=== PATIENT | female | born 1960 | race Caucasian/White ===

== ENCOUNTER → 2018-01-03 07:12 | Outpatient (CLI) | payer MEDICARE, SELFPAY ==
--- NOTE | 2018-01-03 07:26 | BI_ITS ---
MAMMOGRAPHY - BILATERAL SCREENING REASON FOR EXAM: Female, 57 years old. Routine annual screening examination. PERTINENT HISTORY: Non-contributory. Prior right stereotactic breast biopsy. TECHNIQUE: Digital bilateral breast john (3D mammographic acquisition) in the CC and MLO projections. 2-D mediolateral oblique (MLO) and craniocaudad (CC) views of both breasts were obtained. CAD: Full Field Digital Mammography with Computer Added Detection was performed. COMPARISON: Comparison is made with prior study of December 19, 2016 and January 29, 2014. FINDINGS: Breast Composition: There are scattered areas of fibroglandular density. There are no dominant masses or suspicious calcifications. Stable bilateral benign-appearing axillary lymph nodes. A tissue clip marker is seen in the superior lateral aspect of the right breast. No other significant abnormalities are identified. There has been no significant change since the prior study. BI/SCREENING MAMM (CAD), BILAT IMPRESSION: Stable bilateral screening mammogram. Yearly follow-up mammogram recommended. (A) ASSESSMENT CATEGORY: BIRADS Category 2: Benign. A letter regarding these results will be sent to the patient by the facility within 30 days. Approximately 10% of breast cancers are not detected by mammography. A normal mammogram should not delay biopsy of a clinically suspicious abnormality. [id number] Electronically Signed: Tye Estrada MD at 8:58 EDT Tel [phone], Service support ,
== END ==
PROVIDERS: Family Provider Family Medicine; PCP Family Medicine; Visit Provider Family Medicine
DX: Z12.31 Encounter for screening mammogram for malignant neoplasm of breast (principal)
CPT/HCPCS: 77063; 77067

== ENCOUNTER 2018-04-30 07:23 | Emergency (ER) | payer MEDICARE, SELFPAY ==
[2018-04-30] VITALS (7 sets, daily range): BP systolic 110–185; BP diastolic 73–112; PULSE 62–70; RESP 12–18; TEMP 36.1; O2SAT 95–100; BMI 44.2
--- NOTE | 2018-04-30 07:52 | RAD_ITS ---
STUDY: X-RAY CHEST REASON FOR EXAM: Female, 58 years old. Shortness of breath TECHNIQUE: PA and lateral views of the chest. COMPARISON: None. FINDINGS: Cardiac monitoring leads overlie the chest. The lungs are clear and expanded. There is no demonstrated pleural abnormality. Normal size heart. Normal mediastinum and aziza. Normal visualized pulmonary arteries. Normal visualized aortic arch and descending thoracic aorta. There are diffuse degenerative changes of the visualized thoracic spine. Normal visualized ribs, clavicles, and shoulders. There is no demonstrated abnormality of the visualized soft tissue structures of the upper abdomen. RAD/Chest PA and Lateral IMPRESSION: Degenerative changes, as described above. No demonstrated acute cardiopulmonary process. Electronically Signed: Danny Mei DO at 8:33 EDT Tel , Service support ,
--- NOTE | 2018-04-30 07:56 | ED.VISSUMM ---
- ER Visit Summary Date of Service: 04/30/18 Chief Complaint: Shortness of breath History of Present Illness: The patient is a 58 F who presents with shortness of breath that has been getting worse over the past 2 days. Patient states it is gradually gotten worse. Patient states she feels like she just cannot get enough air. Patient denies any chest pain. Patient denies any wheezing or tightness. Patient states nothing makes her breathing worse. Patient states her breathing improves when she is sleeping. Patient denies any cough. Patient denies any sore throat or rhinorrhea. Patient denies any fevers. Patient denies any lower extremity pain or swelling. Patient denies any recent travel or recent surgery. Physical Examination: Vital signs are stable. Patient is afebrile. Patient is in no acute distress. Oral mucosa is pink and moist. Neck is supple. Trachea is midline. There is no JVD noted. Heart was regular rate and rhythm. Lungs are slightly diminished bilaterally. There is adequate respiratory effort noted. Abdomen is soft and nontender. Extremities are intact. There is no peripheral edema noted. Cranial nerves II through XII are intact. There are no focal motor or sensory deficits noted. The remaining physical exam is within normal limits. Test Results: EKG showed normal sinus rhythm with a rate of 65. There are nonspecific ST-T wave changes noted. There are no acute changes. Chest x-ray does not show any acute cardiopulmonary process. CBC was normal. Basic metabolic profile shows slightly elevated creatinine of 1.23. Emergency Department Course and Treatment: Patient was given a DuoNeb aerosol here. Patient felt better on reevaluation. Patient was given a prescription for albuterol inhaler. Patient was instructed to follow-up with her primary care physician in 5-7 days. Patient understood and was agreeable with the plan. All questions were answered. Disposition: Discharge home Impression: Dyspnea This note was generated with [employer] dictation software. It may contain incorrect words, spelling, and punctuation that were not noted in review of the chart prior to signing ED Disposition - Plan for ED Patient: Disposition: Home or Assisted Living Chief Complaint: Shortness of Breath Diagnosis: Dyspnea Prescriptions: Albuterol Inhaler [Ventolin Hfa] 1 - 2 puff INHALATION Q4H PRN PRN #1 inhaler PRN Reason: Wheezing Referrals: Trey Marion DO [Primary Care Provider] -
[2018-04-30] MEDS: Ipratropium/Albuterol Sulfate 3 ML AMPUL.NEB INHALATION (08:11)
[2018-04-30 08:12] LABS: Absolute Lymphocyte Count 1.68 X10^3/ul (0.83-4.51); Absolute Neutrophil Count 4.4 X10^3/uL (2.0-7.7); Basophil# 0.05 X10^3/uL; Basophil% 0.7 % (0-1); Eosinophil# 0.32 X10^3/uL; Eosinophils% 4.5 % (0-5); Hematocrit 45.6 % (37-47); Hemoglobin 14.9 g/dl (12.0-15.0); Lymphocyte # 1.68 X10^3/ul (4.0); Lymphocyte % 23.8 % (19-41); Mean Corp Hgb Conc 32.7 g/gl (32-36); Mean Platelet Vol. 10.2 fl (6.2-12.0); Monocyte# 0.57 X10^3/uL; Monocyte% 8.1 % (0-10); Neutrophil % 62.2 % (47-70); POSITIVE COUNT NO; POSITIVE DIFFERENTIAL NO; POSITIVE MORPHOLOGY NO; Platelet Count 215 K/mm3 (150-450); RBC Distribution Width CV 14.1 % (11.6-14.6); RBC Distribution Width SD 48.7 fl (35.1-43.9); White Blood Count 7.1 K/mm3 (4.4-11.0)
[2018-04-30 08:16] LABS: Anion Gap 5 (5-15); BUN 13 mg/dL (7-18); BUN/Creat Ratio 10.6 RATIO (10-20); Calcium,Total 8.3 mg/dL (8.5-10.1); Chloride 103 mmol/L (98-107); Creatinine, Serum 1.23 mg/dL (0.55-1.02); EST Glomerular Filtration Rate 48 mL/min (>60); Est Glom Filt Rate - Afr Amer 58 mL/min (>60); Estimated Creatinine Clearance 51.52 ml/min; Glucose 134 mg/dL (74-106); Potassium 3.6 mmol/L (3.5-5.1); Sodium Level 139 mmol/L (136-145)
== END 2018-04-30 10:04 | disposition home or self-care (01) ==
PROVIDERS: Emergency Provider Emergency Medicine; Family Provider Family Medicine; PCP Family Medicine
DX: R06.00 Dyspnea, unspecified (principal); E03.9 Hypothyroidism, unspecified
CPT/HCPCS: 71046; 80048; 85025; 93005; 94640; 99284; A4216

== ENCOUNTER → 2018-05-14 14:00 | Outpatient (CLI) | payer MEDICARE, SELFPAY ==
[2018-05-14 15:33] LABS: Absolute Lymphocyte Count 2.15 X10^3/ul (0.83-4.51); Absolute Neutrophil Count 3.6 X10^3/uL (2.0-7.7); Basophil# 0.09 X10^3/uL; Basophil% 1.3 % (0-1); Eosinophil# 0.27 X10^3/uL; Hematocrit 43.3 % (37-47); Hemoglobin 14.4 g/dl (12.0-15.0); Lymphocyte # 2.15 X10^3/ul (4.0); Lymphocyte % 32.2 % (19-41); Mean Corp Hgb Conc 33.3 g/gl (32-36); Mean Corpuscular Hgb 31.8 pg (27.0-32.0); Mean Corpuscular Volume 95.6 fL (81-99); Mean Platelet Vol. 10.7 fl (6.2-12.0); Monocyte# 0.52 X10^3/uL; Monocyte% 7.8 % (0-10); Neutrophil # 3.59 X10^3/uL (2.7-7.7); Platelet Count 236 K/mm3 (150-450); RBC Distribution Width CV 14.6 % (11.6-14.6); RBC Distribution Width SD 48.9 fl (35.1-43.9); Red Blood Count 4.53 M/mm3 (4.2-5.4); White Blood Count 6.7 K/mm3 (4.4-11.0)
[2018-05-14 15:41] LABS: POSITIVE COUNT NO; POSITIVE DIFFERENTIAL NO; POSITIVE MORPHOLOGY NO
== END ==
PROVIDERS: Family Provider Family Medicine; PCP Family Medicine; Visit Provider Nurse Practitioner Women's Health
DX: R53.83 Other fatigue (principal); N92.1 Excessive and frequent menstruation with irregular cycle
CPT/HCPCS: 36415; 84443; 85025

== ENCOUNTER → 2018-05-14 17:39 | Outpatient (CLI) | payer MEDICARE, SELFPAY ==
--- NOTE | 2018-05-14 | EMB_PTH ---
PATIENT: MURRAY HOOD LOC: [facility] U#:[id number] AGE/SX: 65/F ROOM: RE05/14/[address]: DAKOTA Viera : 1960 BED: DIS: SPEC #: [id number] RECD: 05/14/18 17:39 STATUS: FELIX BREONNA #: [id number] MERYL: 05/14/18 00:[address]: Tameak Perkins NP DEPT: SURGICAL PATHOLOGY RECD BY: Cr Valente ENTERED: 05/15/18 12:21 SP TYPE: ENDOM BX/C SCOTT DR: Dr. Trey Marion DO Tissues: Endometrium, NOS Procedures: Surgery Specimen Level IV HEADER OPERATION: Endometrial biopsy PRE-OP DIAGNOSIS: Abnormal uterine bleeding TISSUE SUBMITTED: Endometrial tissue MICROSCOPIC DIAGNOSIS Endometrial biopsy: Complex endometrial hyperplasia with atypia. See comment. Chronic endometritis. SJ:anita 8/23/18 COMMENT Higher grade lesion, endometrial adenocarcinoma, endometrioid type can not be entirely ruled out. Clinical correlation and appropriate follow up are necessary. Case has been reviewed in consultation with Dr. Carroll who concurs with the above diagnosis. IDC:AM MICROSCOPIC DESCRIPTION Slides are reviewed. GROSS DESCRIPTION Received is one container labeled with the patient's name and not further designated. The specimen consists of multiple fragments of hemorrhagic mucoid tissue that in aggregate measure 3 x 2.5 x 0.3 cm. The specimen is totally submitted in one cassette. / SJ:anita 05/15/18 TC:5 CPT: 06433
== END ==
PROVIDERS: Family Provider Family Medicine; PCP Family Medicine; Visit Provider Nurse Practitioner Women's Health
DX: N93.9 Abnormal uterine and vaginal bleeding, unspecified (principal)

== ENCOUNTER → 2018-05-14 18:21 | Outpatient (CLI) | payer MEDICARE, SELFPAY | PROVIDERS: Family Provider Family Medicine; PCP Family Medicine; Visit Provider Obstetrics & Gynecology | DX: N92.1 Excessive and frequent menstruation with irregular cycle (principal) | CPT/HCPCS: 36415; 76830; 76856; 84443; 85025; 88305 ==

== ENCOUNTER 2018-06-14 14:59 | Emergency (ER) | payer MEDICARE, SELFPAY ==
[2018-06-14 15:00] VITALS: BP 165/105; PULSE 102; RESP 14; TEMP 36.3; O2SAT 98; BMI 42.3
--- NOTE | 2018-06-14 15:17 | VDLE_ITS ---
Reason For Study: PAIN RIGHT LEFT CFV is compressible, spontaneous, phasic, GSV is normal. competent and demonstrates normal CFV is compressible, spontaneous, phasic, augmentation. competent, and demonstrates normal Procedure augmentation. Exam performed portable in ED. FV is compressible, spontaneous, phasic, A preliminary report was called and/or competent and demonstrates normal faxed to ED. augmentation. POP V is compressible, spontaneous, phasic, competent and demonstrates normal augmentation. T/P Trunk is compressible. LT PerV is compressible. Left PTV is dilated and NONCOMPRESSIBLE distally at the ankle. Left SSV is dilated and NONCOMPRESSIBLE . Varicosities of the left leg are dilated and NONCOMPRESSIBLE. IMAGES ARE MISLABELED- Left leg was scanned. Interpretation Summary Acute deep venous thrombosis left posterior tibial vein Superficial thrombophlebitis left small saphenous vein and left calf varicosities. Normal flow pattern right common femoral vein Ordering Physician: Clarissa Carmona Referring Physician: SINTIA ELIZALDE Performed By: Olamide Seymour, ALFREDITO, RVT
--- NOTE | 2018-06-14 15:20 | ED.DCSUM_ITS ---
- ER Visit Summary Date of Service: 06/14/18 Chief Complaint: Left leg pain and swelling History of Present Illness: The patient is a 58 F who noted redness and swelling to the medial portion of her left lower leg for the past couple of days. She denies chest pain or shortness of breath. She denies history of clots. She is a family history of phlebitis. Patient denies any recent injury. She states the area was so painful last night she had trouble laying it on the bed. Physical Examination: Blood pressure is 165/105, temperature 97.3, heart rate 102, respiratory rate 14, sats 98% on room air. Patient sitting upright in bed no acute distress. Head neck examination is unremarkable. Heart is regular rate and rhythm. lung sounds are clear. Abdomen is soft nontender. Left lower extremity examination reveals erythema with palpable distended vein along the medial left calf. Strong distal pulses are noted. Full range of motion is noted. Test Results: Venous ultrasound of the left leg was obtained. There is evidence of superficial thrombophlebitis. There is clot in 1 of the small feeder vessels to the deep system near the ankle. Emergency Department Course and Treatment: Patient is inserted on heat and aspirin. I will speak with her primary care physician to help arrange repeat ultrasound in 3 days. Treatment Plan: [] Disposition: Discharge Impression: Superficial thrombophlebitis left leg This note was generated with [employer] dictation software. It may contain incorrect words, spelling, and punctuation that were not noted in review of the chart prior to signing ED Disposition - Plan for ED Patient: Disposition: Home or Assisted Living Chief Complaint: Lower Extremity Injury Instructions: ED Phlebitis Superficial Referrals: Trey Marion DO [Primary Care Provider] - 3-5 Days
--- NOTE | 2018-06-14 15:59 | ED.DEP ---
ED Disposition - Plan for ED Patient: Disposition: Home or Assisted Living Chief Complaint: Lower Extremity Injury Instructions: ED Phlebitis Superficial Referrals: Trey Marion DO [Primary Care Provider] - 3-5 Days
[2018-06-14 16:29] VITALS: BP 148/96; PULSE 85; RESP 18; O2SAT 97
== END 2018-06-14 16:29 | disposition home or self-care (01) ==
LOC: ED 16:09
PROVIDERS: Emergency Provider Emergency Medicine; Family Provider Family Medicine; PCP Family Medicine
DX: I80.02 Phlebitis and thrombophlebitis of superficial vessels of left lower extremity (principal)
CPT/HCPCS: 93971; 99282

== ENCOUNTER 2020-11-11 06:25 | Emergency (ER) | payer MEDICARE, SELFPAY ==
[2020-03-09 09:13] VITALS: BMI 42.3
[2020-11-11 06:26] VITALS: BP 164/83; PULSE 93; RESP 18; TEMP 36.9; O2SAT 95; BMI 39.0
--- NOTE | 2020-11-11 06:36 | EKG12_ITS ---
Test Reason : SOB Blood Pressure : / mmHG Vent. Rate : 092 BPM Atrial Rate : 092 BPM P-R Int : 140 ms QRS Dur : 082 ms QT Int : 362 ms P-R-T Axes : 017 -17 016 degrees QTc Int : 447 ms Normal sinus rhythm Poor R wave progression Confirmed by TOMAS JOHNSTON, NICHOLAS ([id number]), material expeditor LOLA APARICIO ([id number]) on 11/29/2020 2:49:57 PM Referred By: GOLDIE Confirmed By:NICHOLAS MARIN MD
--- NOTE | 2020-11-11 06:36 | RAD_ITS ---
HISTORY: COUGH X WK ADDITIONAL HISTORY: None provided. EXAMINATION/TECHNIQUE: XR Chest 1 View AP/PA Number of images including paperwork: 1 COMPARISON: 04/30/2018 FINDINGS: LUNGS AND PLEURA: No consolidation, mass or pleural effusion. CARDIAC SILHOUETTE: Unremarkable. MEDIASTINUM AND ANKUR: Aortic tortuosity. UPPER ABDOMEN: Unremarkable. SKELETON AND SOFT TISSUES: No acute skeletal findings. Degenerative changes. OTHER DEVICES AND HARDWARE: None. RAD/Chest 1 View (Portable) IMPRESSION: No acute cardiopulmonary abnormality. at 0716 Reported and signed by: Celia Guzmán MD Electronically Signed: Celia Guzmán MD at 7:15 EST Tel , Service support ,
--- NOTE | 2020-11-11 06:36 | ED.VIS.GEN ---
History of Present Illness Chief Complaint: Shortness of Breath Narrative: Patient is a 60-year-old female who presents with cough and shortness of breath. Symptoms have been present for about 1 week. She complains of shortness of breath, productive cough, chills, generalized malaise, generalized weakness, rhinorrhea. No nausea vomiting or diarrhea. She does report decreased oral intake. She denies pain. She has a history of hypothyroidism and mild asthma. Past Medical History - Allergies and Home Meds Allergies/Adverse Reactions: Allergies etodolac [From Lodine] Allergy (Verified 11/11/20 06:28) Hives Penicillins [PCN] Allergy (Verified 11/11/20 06:28) Hives Primary Care Physician: Trey Marion DO [Primary Care Provider] - Past Medical History: - - Hypothyroidism Smoking Status: Never smoker Review of Systems All systems negative except as indicated General: Reports: Chills, Malaise. Denies: Fever Eyes: Denies: Visual changes - bilaterally ENT: Denies: Bilateral ear pain Cardiovascular: Denies: Chest pain Respiratory: Reports: Dyspnea, Cough, Sputum Gastrointestinal: Denies: Abdominal pain, Nausea, Vomiting, Diarrhea Musculoskeletal: Denies: Myalgias, Arthralgias Skin: Denies: Rash Neurological: Denies: Headache Hematologic: Denies: Easy bruising Allergy: Denies: Uticaria Physical Exam Vital Signs/Narrative: Vital Signs Temp Pulse Resp BP Pulse Ox 11/11/20 06:26 98.4 F 93 18 164/83 H 95 Inital Vital Signs reviewed: Yes General: Well nourished, Well developed, Obese Head: Normocephalic Eyes: EOMI ENT: Moist mucous membranes Neck: Supple Cardiovascular: Regular rate, Regular rhythm Respiratory: No distress, CTA bilaterally Abdomen: Soft, Nontender Skin: Normal color Neurological: Alert Psychological: Normal affect Diagnostic/Tx/Re-eval 11/11/20 06:36 CXR [Chest 1 View (Portable)] [RAD] Stat 11/11/20 06:40 Mucosa - Nose SARS-CoV-2 Antigen (Rapid) - Final Laboratory Results 11/11/20 11/11/20 06:35 06:35 WBC 3.0 L RBC 4.80 Hgb 14.3 Hct 42.6 MCV 88.8 MCH 29.8 MCHC 33.6 RDW Std Deviation 39.8 RDW Coeff of Rivka 12.2 Plt Count 169 MPV 9.8 Immature Gran % (Auto) 0.300 Neut % (Auto) 52.9 Lymph % (Auto) 30.3 [place] % (Auto) 14.8 H Eos % (Auto) 1.0 Baso % (Auto) 0.7 Absolute Neuts (auto) 1.6 L Absolute Lymphs (auto) 0.90 Nucleated RBC % 0 Sodium 139 Potassium 3.3 L Chloride 107 Carbon Dioxide 25.0 Anion Gap 7 BUN 14 Creatinine 0.62 Estim Creat Clear Calc 99.77 Est GFR (MDRD) Af Amer 126 Est GFR (MDRD) Non-Af 104 BUN/Creatinine Ratio 22.4 H Glucose 122 H Calcium 8.6 - Medical Decision Making EKG shows normal sinus rhythm at a rate of 92 with no acute ischemic changes. One-view portable chest x-ray was obtained. On my interpretation the shows no focal infiltrate, questionable right upper lung nodule. Radiology read is pending. Labs notable for white blood cell count of 3.0. This is likely related to a viral illness. Covid is negative. Patient advised on supportive care. I do believe the patient can follow-up safely as an outpatient. We will follow up on radiology report prior to discharge. Patient does understand to return for new or worsening symptoms she was advised on supportive care. She is instructed on signs and symptoms which should prompt return here to the emergency department for reevaluation and was discharged. ED Disposition - Plan for ED Patient: Disposition: Home or Assisted Living Diagnosis: Bronchitis Instructions: ED Bronchitis, No Antibiotic (Adult) Referrals: Trey Marion DO [Primary Care Provider] -
[2020-11-11 06:41] LABS: Absolute Neutrophil Count 1.6 X10^3/uL (2.0-7.7); Basophil# 0.02 X10^3/uL; Basophil% 0.7 % (0-1); Eosinophil# 0.03 X10^3/uL; Hematocrit 42.6 % (37-47); Hemoglobin 14.3 g/dL (12.0-15.0); Lymphocyte % 30.3 % (19-41); Mean Corp Hgb Conc 33.6 g/dL (32-36); Mean Corpuscular Hgb 29.8 pg (27.0-32.0); Mean Corpuscular Volume 88.8 fL (81-99); Mean Platelet Vol. 9.8 fl (6.2-12.0); Monocyte# 0.44 X10^3/uL; Monocyte% 14.8 % (0-10); NRBC Flagged by Analyzer 0 % (0-5); Neutrophil # 1.57 X10^3/uL (2.7-7.7); Neutrophil % 52.9 % (47-70); Platelet Count 169 K/mm3 (150-450); RBC Distribution Width CV 12.2 % (11.6-14.6); RBC Distribution Width SD 39.8 fl (35.1-43.9)
[2020-11-11] MEDS: 0.9% Normal Saline 1,000 ML 999 ML IV (06:44)
[2020-11-11 06:54] LABS: Anion Gap 7 (5-15); BUN 14 mg/dL (7-18); BUN/Creat Ratio 22.4 RATIO (10-20); Calcium,Total 8.6 mg/dL (8.5-10.1); Chloride 107 mmol/L (98-107); Creatinine, Serum 0.62 mg/dL (0.55-1.02); EST Glomerular Filtration Rate 104 mL/min (>60); Est Glom Filt Rate - Afr Amer 126 mL/min (>60); Estimated Creatinine Clearance 99.77 ml/min; Glucose 122 mg/dL (74-106); Potassium 3.3 mmol/L (3.5-5.1); Sodium Level 139 mmol/L (136-145)
[2020-11-11 07:07] VITALS: BP 164/83; PULSE 93; RESP 18; TEMP 36.9; O2SAT 95
[2020-11-11 07:30] VITALS: BP 146/75; PULSE 86; RESP 21; O2SAT 95
== END 2020-11-11 07:31 | disposition home or self-care (01) ==
LOC: ED 07:20
PROVIDERS: Emergency Provider Emergency Medicine; PCP Family Medicine
DX: J40 Bronchitis, not specified as acute or chronic (principal); E03.9 Hypothyroidism, unspecified; Z88.0 Allergy status to penicillin
CPT/HCPCS: 71045; 80048; 85025; 87426; 93005; 96360; 99282; A4216

== ENCOUNTER → 2020-12-24 12:32 | Outpatient (CLI) | payer MEDICARE, SELFPAY ==
[2020-03-09 09:13] VITALS: BMI 42.3
--- NOTE | 2020-12-24 12:35 | CT_ITS ---
STUDY: CT SCAN LOWER EXTREMITY LEFT REASON FOR EXAM: Female, 60 years old. LFT KNEE DEFORMITY- LEFT CLAUDIA PROTOCOL RADIATION DOSAGE (If Supplied By Facility): CTDIvol = ( 19.67 ) mGy, DLP = ( 1534.54 ) mGycm. Individualized dose optimization techniques were used for this CT.? TECHNIQUE: Multiple axial tomographic images of the left lower extremity were obtained. Coronal and sagittal reconstructions obtained as well. COMPARISON: None. FINDINGS: Imaging of the left hip joint was obtained. There is evidence of an acetabular spur along the inferior medial aspect of the acetabulum as well as the superior lateral aspect of the acetabulum. The joint space is well maintained. Imaging of the knee joint was obtained. There is a marked degree of joint space narrowing with degenerative spur formation along the medial compartment of the knee joint. Imaging of the ankle joint was obtained as well. No abnormality is seen. CT/Extremity Lower without Contra IMPRESSION: Moderate degree of joint space narrowing and spur formation along the medial compartment of the knee joint. Electronically Signed: Tye Estrada MD at 15:27 EDT , Service support ,
== END ==
PROVIDERS: PCP Family Medicine; Referring Provider Specialist; Visit Provider Specialist
DX: M21.162 Varus deformity, not elsewhere classified, left knee (principal)
CPT/HCPCS: 73700

== ENCOUNTER 2021-01-19 14:25 | Observation (INO) | payer MEDICARE, SELFPAY ==
[2020-03-09 09:13] VITALS: BMI 42.3
--- NOTE | 2021-01-06 10:22 | NURSING ---
pt states she received the second Moderna vaccine on 01/06/21.
--- NOTE | 2021-01-11 08:50 | EKG12_ITS ---
Test Reason : PRE OP Blood Pressure : / mmHG Vent. Rate : 074 BPM Atrial Rate : 074 BPM P-R Int : 144 ms QRS Dur : 076 ms QT Int : 370 ms P-R-T Axes : 042 005 031 degrees QTc Int : 410 ms Normal sinus rhythm Poor R- wave progression Confirmed by TOMAS JOHNSTON, NICHOLAS ([id number]), social media editor MERRITT CASTILLO ([id number]) on 01/12/2021 10:00:55 AM Referred By: José Antonio Whitman Confirmed By:NICHOLAS MARIN MD
--- NOTE | 2021-01-11 09:10 | RAD_ITS ---
STUDY: X-RAY CHEST REASON FOR EXAM: Female, 60 years old. Preop TECHNIQUE: PA and lateral views of the chest. COMPARISON: Comparison is made with prior study of 11/11/2020. FINDINGS: Hyperinflation. The lungs are clear. There is no demonstrated pleural abnormality. Normal size heart. Normal mediastinum and aziza. Normal visualized pulmonary arteries. There is atherosclerotic calcification of the aortic arch with tortuosity. There are diffuse degenerative changes of the visualized thoracic spine. Normal visualized ribs, clavicles, and shoulders. A filter is seen within the inferior vena cava. RAD/Chest PA and Lateral IMPRESSION: Hyperinflation. No acute abnormality is seen. Electronically Signed: Tye Estrada MD at 15:30 EDT , Service support ,
[2021-01-11 10:16] LABS: Hematocrit 43.3 % (37-47); Hemoglobin 13.8 g/dL (12.0-15.0); Mean Corp Hgb Conc 31.9 g/dL (32-36); Mean Corpuscular Hgb 29.6 pg (27.0-32.0); Mean Corpuscular Volume 92.7 fL (81-99); Platelet Count 275 K/mm3 (150-450); RBC Distribution Width CV 12.9 % (11.6-14.6); RBC Distribution Width SD 43.9 fl (35.1-43.9); Red Blood Count 4.67 M/mm3 (4.2-5.4); White Blood Count 5.5 K/mm3 (4.4-11.0)
[2021-01-11 10:26] LABS: Prothrombin Time (Protime)PT. 12.3 SECONDS (11.7-14.9)
[2021-01-11 11:04] LABS: Anion Gap 4 (5-15); BUN 12 mg/dL (7-18); BUN/Creat Ratio 19.7 RATIO (10-20); Calcium,Total 9.2 mg/dL (8.5-10.1); Chloride 104 mmol/L (98-107); Creatinine, Serum 0.61 mg/dL (0.55-1.02); EST Glomerular Filtration Rate 107 mL/min (>60); Est Glom Filt Rate - Afr Amer 129 mL/min (>60); Glucose 92 mg/dL (74-106); Potassium 3.5 mmol/L (3.5-5.1); Sodium Level 140 mmol/L (136-145)
[2021-01-11 11:39] LABS: AST(SGOT) 23 U/L (15-37); Alanine Aminotransfer ALT/SGPT 42 U/L (13-56); Albumin, Serum 3.8 g/dL (3.2-5.0); Alkaline Phosphatase 139 U/L (45-117); Bilirubin, Direct 0.24 mg/dL (0.00-0.30); Globulin 3.8 g/dL (2.2-4.2); Protein, Total 7.6 g/dL (6.4-8.2); Thyroid Stim Hormone (TSH) 0.01 uIU/mL (0.358-3.74)
[2021-01-19] VITALS (12 sets, daily range): BP systolic 119–157; BP diastolic 64–98; PULSE 69–94; RESP 16–18; TEMP 36.1–37; O2SAT 92–100; BMI 37.9
[2021-01-19 09:10] LABS: Bedside Glucose 90 mg/dL (70-110)
[2021-01-19] MEDS: Gabapentin 600 MG Tablet PO (09:24)
[2021-01-19] MEDS: Acetaminophen 500 MG Tablet 1000 MG PO ×3 (09:24→21:59)
[2021-01-19] MEDS: Celecoxib 200 MG Capsule 400 MG PO (09:24)
[2021-01-19] MEDS: Scopolamine 1mg/72hr Patch 1 PATCH TD (09:24)
[2021-01-19] MEDS: Lactated Ringers 1,000 ML 100 ML IV ×2 (10:00→12:16)
--- NOTE | 2021-01-19 11:49 | OP.PCM_ITS ---
Report of Operation Date of Procedure: 01/19/21 Pre-Operative Diagnosis: Left knee primary osteoarthritis Post-Operative Diagnosis: Left knee primary osteoarthritis Surgery/Procedure Performed:: Left knee minimally invasive robotic assisted total knee replacement Description of Surgical Findings:: Stable knee with good patella tracking nail puller: [place] Type of Anesthesia: Spinal Anesthesiologist: Dani Tobin Special Medications: 2 g Ancef, 1 g TXA at incision, 1 g TXA closure, 10 mg Decadron, joint cocktail (5 mg Duramorph, 30 mL of 0.5% Ropivicaine, 1000 units of epinephrine, 30 mg of Toradol) Specimen's removed: Bony cuts Estimated Blood Loss (mL): 100 mL Fluids Replaced: 1000 L crystalloid Description of Procedure: Implants used: 1. [place] size 5 triathlon cruciate retaining distal femoral press-fit component 2. [place] size 5 press-fit tritanium tibial baseplate 3. [place]ce X3 10 mm CS polyethylene 4. [place] X3 35 mm asymmetric patella Brief history operative indications: 61-year-old female with history of left knee osteoarthritis with radiographic findings with loss of joint space, osteophyte formation and subchondral sclerosis. Failed conservative measures as mentioned in the H&P. Discussion of total knee arthroplasty as well as risk and benefits were discussed the patient including but not limited to blood loss, DVTs, PEs, neurovascular damage, general risk of anesthesia including loss of life, and stiffness or instability were discussed with patient. Patient demonstrated understanding and was able to sign informed consent. Procedure: On the date of procedure patient's left lower extremity was marked in the preoperative area. The patient was then taken back to the operating room where the patient was placed on the table in the supine position. All bony prominences were identified a well-padded. Anesthesia assumed control of the C-spine and airway and remained controlled throughout the remainder of the procedure. A tourniquet was placed on the left upper thigh and the leg was prepped in a sterile fashion. The surgeon then scrubbed at this time .Upon reentering the room left lower extremity was draped in a standard orthopedic fashion. A timeout was then called and everyone agreed upon the side, the site, the procedure to be performed, patient's identity and antibiotics given. Esmarch bandage was used to exsanguinate the extremity and the tourniquet was placed up to 250 mmHg with the knee in flexion. A midline skin incision was made and sharp dissection was taken down through skin subcutaneous tissue and fat. The standard medial parapatellar incision was made and the patella was subluxed laterally. An Appropriate deep MCL release was done and the fat pad was resected. Our attention was then directed to the patella. The patella was everted and a flat resection was made. The knee was then flexed up in 2 femoral pins were placed inside the incision and 2 tibial pins were placed outside the incision in the medial tibia bicortically. Once this was completed the 2 checkpoints in the femur and tibia were placed. Knee was then flexed up and the bony landmarks were registered. Once this was completed knee was taken through range of motion and manually stressed allowing us to a plan for an appropriate tibial cut. The robotic arm was brought into the field sterilely and checkpoint and saw were registered. Based on the patient's deformity the tibial cut was made in neutral. At this time the tensioner was then placed in the joint and ligament tension was checked at 90 degrees and full extension. Based on the patient's ligamentous tension appropriate adjustments were made to the operative plan and ligament releases were done. Once we were happy with our operative plan with balanced flexion and extension gaps our attention was directed to the femur. The robot was brought into the field sterilely and registered. Posterior condylar cuts, anterior chamfer cuts and anterior cuts were appropriately made for a size 5 femur. When these were completed the saws were switched out in the distal femoral and posterior chamfer cuts were made. Protecting the soft tissue throughout this time. A size 5 tibial base plate was selected. the knee was flexed to 90 degrees and the soft tissues and posterior osteophytes were removed from the joint. 40 cc of the periarticular injection was injected into the posterior medial corner of the joint. The appropriate trials were then placed on the femur and tibia. A trial polyethylene was trialed to ensure proper balancing and stability of the knee. The appropriate tibial internal rotation was then marked with a bovie. Our attention was then directed to the patella. The lug holes were drilled and the patella trial was placed. Patellar tracking was checked and deemed appropri ate. Once we were happy lug holes were drilled for the femur and trial components were removed. the tibia was subluxed and pinned into place and the keel was punched and drilled appropriately. Final components were verified and opened, and cement was mixed in a vacuum. [employer] Simplex cement was used. The wound was copiously irrigated with normal saline. When the cement was ready the components were impacted into place starting with the tibia, femur and finally cementing the patella. The trial poly component was placed and the knee was placed in full extension. All excess cement was removed in the process. Once the cement had cured the tracking, alignment and balance were verified and a size 10 mm CS polyethylene component was placed. Once the final components were placed a 3-minute dilute Betadine lavage was performed followed by an Irrisept lavage was performed and the wound was copiously irrigated with normal saline solution and the periarticular injection was given. The wound was closed in a layer kilgore fashion using #1 vicryl interrupted sutures for the arthrotomy, 2-0 interrupted Vicryl suture for the subcuticular layer and jossie for final skin closure. A sterile compressive dressing was then placed. The patient was then awakened from anesthesia, transferred to the [place] and transferred to the PACU for recovery. Post op plan DVT ppx: Xarelto due to previous DVT, 10 mg daily, thigh high compression stockings Follow up: in office in 2 weeks for wound check PT: to start POD #0 at hospital, outpatient PT should be arranged. My physician family medicine physician assistant was a vital part of this case. He was important in appropriate retraction during the case, and protection of soft tissues during bony cuts. His intimate knowledge of the case and my steps aided in safe and expedient completion of the procedure as well as appropriate position of the leg during the case. He was also vital in assisting with closure under my direct supervision. Due to the complexity of this case robotic arm was used to assist in the surgery to improve accuracy and clinical outcomes. Complications No intraoperative complications Admit VTE Documentation VTE Present on Admission: No VTE Mechan Device Prophylaxis: SCD's and Thigh High ROSALIO Hose VTE Pharm Prophylaxis ordered?: Yes
--- NOTE | 2021-01-19 12:40 | RAD_ITS ---
STUDY: X-RAY - LEFT KNEE REASON FOR EXAM: Postop left total knee arthroplasty. TECHNIQUE: 2 view(s) of the knee. COMPARISON: CT images 12/24/2020. FINDINGS: There is a left total knee arthroplasty without evidence of complication. There is postoperative gas in the soft tissues and overlying skin jossie. RAD/Knee 1 or 2 Views IMPRESSION: Uncomplicated left total knee arthroplasty. Electronically Signed: Jn Cordoba MD at 13:33 EDT Tel , Service support ,
[2021-01-19] MEDS: Famotidine 20 MG Tablet PO (16:29)
[2021-01-19] MEDS: Ensure Surgery 237 ML LIQUID PO (16:40)
--- NOTE | 2021-01-19 17:01 | NURSING ---
Iv site to Rt AC was uncomfortable for pt and kept ringing when she bent her arm. This nurse offered to restart another Iv. Pt agreed. New Iv in Rt hand and pt asked for old one to be taken out.
[2021-01-19] MEDS: Cefazolin 1 GM/50 ML BAG IV (18:19)
[2021-01-19] MEDS: oxyCODONE 5 MG Tablet 2.5 MG PO (18:19)
[2021-01-19] MEDS: Senna/Docusate Sodium 1 Tablet 2 TABLET PO (21:59)
[2021-01-20] MEDS: Cefazolin 1 GM/50 ML BAG IV (02:22)
--- NOTE | 2021-01-20 05:51 | PCM.PN.ORT ---
Subjective Subjective: 61-year-old female presents today with knee pain 1 day status post left total knee replacement. No acute events overnight. No chest pain or shortness of breath. No calf pain this morning. She did well with therapy last evening was able to walk the floors and do some exercises at the bedside. Her pain scores have been appropriate. She is needed minimal narcotics at this time. Blood was drawn this morning we will continue to follow labs. Objective Data Objective Data Vital Signs: Vital Signs Temp Pulse Resp BP Pulse Ox 98.3 F 78 17 145/80 H 93 01/19/21 21:53 01/19/21 21:53 01/19/21 21:53 01/19/21 21:53 01/19/21 21:53 Oxygen Flow Rate (L/min) 6 Oxygen Delivery Method Room Air Weight: 249 lb 5.485 oz Body Mass Index (BMI) 37.9 Intake & Output: Intake and Output for Last 24 Hours 01/18/21 01/19/21 01/20/21 23:59 23:59 23:59 Intake Total 2778 / 3378 650 / 650 Output Total 750 / 1950 1200 / 1200 Balance 2028 / 1428 -550 / -550 Lab / Micro Data Result Diagrams: 01/11/21 09:13 01/11/21 09:13 Labs: Laboratory Results - last 24 hr 01/19/21 08:47 POC Glucose 90 Micro: Microbiology 01/11/21 09:13 Swab (Method) Nasal Screen MRSA/MSSA - Final Radiography Diagnostic Testing: Radiology Impression Knee X-Ray 01/19/21 12:40 IMPRESSION: Uncomplicated left total knee arthroplasty. Electronically Signed: Jn Cordoba MD at 13:33 EDT Tel , Service support , Physical Exam Const alert, oriented x3 and no apparent distress Extremity Left Lower Extremity: knee joint inspection (Left lower extremity: Dressing is clean dry and intact Sensations intact to light touch saphenous, sural, superficial peroneal, deep peroneal, and tibial distributions Motors intact EHL, DF, PF calves are soft and supple) Assessment & Plan Assessment/Plan (1) History of total left knee replacement: Status: Acute Code(s): Z96.394 - Presence of left artificial knee joint Plan: Postop day 1 left primary total knee replacement 1. 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 Pain control: Pain currently under good control. Did discuss the block and how this may wear off. We discussed appropriateness of pain medications as the block wears off. Continue Tylenol scheduled. Oxycodone for breakthrough pain. Meloxicam. 3. Therapy: First physical therapy is scheduled for Sunday. Continue with therapy today. Patient will be given home exercises to do until Sunday. 4. Patient's vital signs are stable. Will follow labs for any associated abnormalities 5. Disposition: Patient has been stable and comfortable since surgery. Plan is for discharge today after therapy. We did discuss home medications. We discussed dressing changes. Patient remove dressing in 5 days if remains clean and dry. She will call the office if there is excessive drainage. After the dressing is removed patient will continue to shower if clean and dry. [facility] Office:
[2021-01-20 05:53] VITALS: BP 138/72; PULSE 68; RESP 17; TEMP 36.6; O2SAT 99
[2021-01-20 05:59] LABS: Hematocrit 37.5 % (37-47); Hemoglobin 12.1 g/dL (12.0-15.0); Mean Corp Hgb Conc 32.3 g/dL (32-36); Mean Corpuscular Volume 92.8 fL (81-99); Mean Platelet Vol. 9.8 fl (6.2-12.0); Platelet Count 243 K/mm3 (150-450); RBC Distribution Width CV 12.6 % (11.6-14.6); RBC Distribution Width SD 43.1 fl (35.1-43.9); Red Blood Count 4.04 M/mm3 (4.2-5.4); White Blood Count 13.7 K/mm3 (4.4-11.0)
[2021-01-20] MEDS: Levothyroxine 150 MCG Tablet PO (06:00)
[2021-01-20] MEDS: 0.9% Saline Lock 10 ML Syringe IV (06:00)
[2021-01-20] MEDS: Acetaminophen 500 MG Tablet 1000 MG PO ×2 (06:00→13:32)
[2021-01-20] MEDS: Rivaroxaban 10 MG Tablet PO (06:01)
--- NOTE | 2021-01-20 06:03 | DS.PCM_ITS ---
Providers Date of Admission: 01/19/21 Primary Care Physician: Dr. Trey Marion DO Reason For Visit: LT TOTAL KNEE W CLAUDIA Diagnosis Discharge Diagnosis (1) History of total left knee replacement: Status: Acute Code(s): Z96.652 - Presence of left artificial knee joint Medications at Discharge Home Medications albuterol sulfate 1 - 2 puff INHALATION Q4H PRN PRN #1 inhaler 04/30/18 levothyroxine 150 mcg tablet 150 mcg PO QDAY 05/14/18 ABG / Lab / Microbiology Data Result Diagrams: 01/20/21 05:42 01/11/21 09:13 Laboratory: Laboratory Results - last 24 hr 01/19/21 01/20/21 08:47 05:42 WBC 13.7 H RBC 4.04 L Hgb 12.1 Hct 37.5 MCV 92.8 MCH 30.0 MCHC 32.3 RDW Std Deviation 43.1 RDW Coeff of Rivka 12.6 Plt Count 243 MPV 9.8 POC Glucose 90 Microbiology: Microbiology 01/11/21 09:13 Swab (Method) Nasal Screen MRSA/MSSA - Final Radiography Diagnostic Testing: Radiology Impression Knee X-Ray 01/19/21 12:40 IMPRESSION: Uncomplicated left total knee arthroplasty. Electronically Signed: Jn Cordoba MD at 13:33 EDT Tel , Service support , D/C Instructions Discharge Diet: No restrictions Discharge Activity: May Not Drive May shower in (days): 1 (With back to shower) May resume sexual activity in: 6-8 weeks Ice area for (Minutes): 20 (every hour while awake.) Weight Bearing Status: Weight bearing as tolerated Keep extremity elevated above heart level: Operative Extremity Additional Activity Instructions: Wear elastic stockings for 2 weeks after your surgery. Call your doctor if your incision/area has: Continuous Slow Oozing, Sudden Increased Bleeding, Increased Pain/ Swelling, Increased Redness and Foul Sme lling Discharge Call your doctor if you observe: Fever of 101 or Higher, Coldness, Increased Pain, Numbness or Tingling, Change in Color, Calf discomfort and Uncontrolled pain Change Dressing in: do not change dressing (and daily as needed.) Remove Dressing in: 5 days Additional Dressing/Incision Instructions: If incision is clean dry and intact may leave the wound open to air and continue showering. If there is continued drainage continue daily dry dressing changes and keep incision clean dry and intact until there is no drainage. Please Follow Up With: José Antonio Whitman MD When: 02/03/2021 Meaningful Use Info Meaningful Use Diagnoses (Choose all that apply): None applicable Discharge Plan Admission Admit Date/Time: 01/19/21 14:25 Primary Reason for Your Visit: Left total knee arthroplasty Attending Provider: José Antonio Whitman Primary Care Provider: Trey Mraion Discharge Orders/Prescriptions Prescriptions: No Action levothyroxine 150 mcg tablet 150 mcg PO QDAY RF: 0 albuterol sulfate 1 INHALER inhaler 1 - 2 puff INHALATION Q4H PRN PRN (Reason: Wheezing) Qty: 1 RF: 0 Referrals: Trey Marion DO [Primary Care Provider] -
[2021-01-20 06:23] LABS: Anion Gap 3 (5-15); BUN 19 mg/dL (7-18); BUN/Creat Ratio 31.3 RATIO (10-20); Calcium,Total 8.9 mg/dL (8.5-10.1); Chloride 109 mmol/L (98-107); Creatinine, Serum 0.61 mg/dL (0.55-1.02); EST Glomerular Filtration Rate 107 mL/min (>60); Est Glom Filt Rate - Afr Amer 130 mL/min (>60); Estimated Creatinine Clearance 96.57 ml/min; Glucose 147 mg/dL (74-106); Potassium 4.4 mmol/L (3.5-5.1); Sodium Level 137 mmol/L (136-145)
--- NOTE | 2021-01-20 08:53 | PCM.DC ---
Discharge Instructions Outpatient Procedure Reason For Visit: LT TOTAL KNEE W CLAUDIA Procedure: Total Knee Diet Discharge Diet: No restrictions Activity Discharge Activity: May Not Drive May shower in (days): 1 (With back to shower) May resume sexual activity in: 6-8 weeks Ice area for (Minutes): 20 (every hour while awake.) Weight Bearing Status: Weight bearing as tolerated Keep extremity elevated above heart level: Operative Extremity Additional Activity Instructions:: Wear elastic stockings for 2 weeks after your surgery. Dressing / Incision Call your doctor if your incision/area has: Continuous Slow Oozing, Sudden Increased Bleeding, Increased Pain/ Swelling, Increased Redness and Foul Smelling Discharge Call your doctor if you observe: Fever of 101 or Higher, Coldness, Increased Pain, Numbness or Tingling, Change in Color, Calf discomfort and Uncontrolled pain Remove Dressing in: 4 days (Remove on 01/24/21) Additional Dressing/Incision Instructions:: Follow [facility] Post-op Instructions. Once postoperative dressing has been removed only use gentle soap and water over the incision. Do not use any ointments, Neosporin, salves, alcohol pads over the incision for 6 weeks postoperatively. Do not submerge underwater for 6 weeks postoperatively. Follow Up Care Please Follow Up With: José Antonio Whitman MD Test Results: Test results from this visit will be discussed in further detail at your follow-up appointment, if applicable. Discharge Plan Admission Admit Date/Time: 01/19/21 14:25 Primary Reason for Your Visit: Left total knee arthroplasty Attending Provider: José Antonio Whitman Primary Care Provider: Trey Marion Discharge Orders/Prescriptions Prescriptions: New acetaminophen 500 mg Tablet 1,000 mg PO Q8 Qty: 100 RF: 0 famotidine 20 mg Tablet 20 mg PO DAILY Qty: 30 RF: 0 oxycodone 5 mg Tablet 2.5 mg PO Q4H PRN PRN (Reason: Pain Score 4-10) 5 Days Qty: 30 RF: 0 sennosides-docusate sodium [Stool Softener-Stimulant Laxat] 8.6-50 mg Tablet 2 tab PO BID Qty: 14 RF: 0 Xarelto 10 mg Tablet 10 mg PO DAILY@0600 Qty: 13 RF: 0 Continued levothyroxine 150 mcg tablet 150 mcg PO QDAY RF: 0 albuterol sulfate 1 INHALER inhaler 1 - 2 puff INHALATION Q4H PRN PRN (Reason: Wheezing) Qty: 1 RF: 0 Referrals: Physical, Therapy [Other] - 01/24/21 10:00 am Trey Marion DO [Primary Care Provider] - José Antonio Whitman MD [STAFF PHYSICIAN] - 02/03/21 Disposition Patient Disposition: Home, self care
[2021-01-20] MEDS: Senna/Docusate Sodium 1 Tablet 2 TABLET PO (08:58)
[2021-01-20] MEDS: Famotidine 20 MG Tablet PO (08:58)
[2021-01-20 09:04] VITALS: BP 130/65; PULSE 80; RESP 16; TEMP 36.6; O2SAT 98
[2021-01-20] MEDS: oxyCODONE 5 MG Tablet 2.5 MG PO ×2 (09:22→13:37)
--- NOTE | 2021-01-20 10:20 | CASEMGMT ---
ANA FLEMING Face to Face with patient for initial transition planning/care coordination assessment. RN LONNIE introduced self and role at [facility]. Patient sitting in chair, alert and oriented. Patient willing to participate in assessment and is able to answer all questions appropriately. Care providers, pharmacy, and demographics verified. Patient wishes to discharge home and is setup with outpatient therapy at [facility]. Patient states she has no further needs or concerns at this time. CM to follow for discharge planning needs that may arise. PCP: Doni Specialists: Antonette Rankin Pharmacy: [facility] Insurance: [facility] [place] Prescription Benefit: yes Living Will/HPOA: none LNOK: Living Arrangements: Patient lives with in a single story home with 5 steps and railing to enter the home. Patient states she was independent at home prior to surgery Transportation: daughter DME/HHC: Patient states she has shower chair, raised toilet, cane, and walker at home. Patient is scheduled for outpatient therapy at [facility] starting Sunday. Disposition Plan: Patient to discharge home with outpatient therapy, family support, and follow-up plans in place. Vanesa DOWNING, RN, CM
[2021-01-20 13:40] VITALS: BP 150/91; PULSE 83; RESP 18; TEMP 36.4; O2SAT 100
== END 2021-01-20 13:40 | disposition home or self-care (01) ==
LOC: SDC 15:10 → MS3 15:10
PROVIDERS: Anesthesiology; Admitting Provider Specialist; PCP Family Medicine; Referring Provider Specialist; Visit Provider Specialist
PROC: 0SRD0JZ Replacement of Left Knee Joint with Synthetic Substitute, Open Approach (ICD-10-PCS; CPT 27447; principal; 2021-01-19 10:00)
DX: M17.12 Unilateral primary osteoarthritis, left knee (principal); Z86.718 Personal history of other venous thrombosis and embolism; E07.9 Disorder of thyroid, unspecified; Z79.899 Other long term (current) drug therapy; J45.909 Unspecified asthma, uncomplicated; Z91.81 History of falling; I34.1 Nonrheumatic mitral (valve) prolapse
CPT/HCPCS: 01402; 27447; 64447; S2900; 36415; 71046; 73560; 80048; 80076; 82962; 83735; 84443; 85027; 85610; 85730; 87081; 93005; 96361; 96365; 96366; 97110; 97116; 97162; 97166; 97530; 97535; 97802; 99218; 99251; C1776; J7120; A4216; G0378; G0379; G0463

== ENCOUNTER → 2025-08-26 | Outpatient (CLI) | payer MEDICARE, SELFPAY ==
--- NOTE | 2025-08-26 09:32 | RAD_ITS ---
PROCEDURE: SACRUM-COCCYX MIN 2 VIEWS 08/26/2025 REASON FOR EXAM: BACK PAIN TECHNIQUE: Procedure Code: RADSAC Modality: DX Procedure: SACRUM-COCCYX MIN 2 VIEWS COMPARISON: None FINDINGS: There is partial sacralization of L5 on the left. The SI joints are aligned. Sacral foramina appear intact sacral and coccygeal segments are aligned. No fracture is identified. Mineralization is normal. Degenerative changes are partly visible in the lumbar spine. There is no visible atherosclerosis. RAD/Sacrum-Coccyx min 2 Views IMPRESSION: No fracture is identified. Reading Location: [facility]
--- NOTE | 2025-08-26 09:32 | RAD_ITS ---
PROCEDURE: LUMBAR SPINE 2 OR 3 VIEWS 08/26/2025 REASON FOR EXAM: BACK PAIN TECHNIQUE: Procedure Code: RADSPLL Modality: DX Procedure: LUMBAR SPINE 2 OR 3 VIEWS COMPARISON: None FINDINGS: Lumbar spine two views. There is an IVC filter with its tip at the L2 level. Surgical clips are noted in the right upper quadrant. Vertebral body height and alignment are grossly maintained. There is loss of disc height at each level. There is severe facet sclerosis. Mineralization is normal. There is no visible atherosclerosis. RAD/Lumbar Spine 2 or 3 Views IMPRESSION: There is an IVC filter with its tip at the L2 level. Surgical clips are noted in the right upper quadrant. Vertebral body height and alignment are grossly maintained. There is loss of disc height at each level. Reading Location: [facility]
== END | disposition home or self-care (01) ==
LOC: MTRAD 09:32
PROVIDERS: PCP Family Medicine; Referring Provider Family Medicine; Visit Provider Family Medicine
DX: M54.9 Dorsalgia, unspecified (principal)
CPT/HCPCS: 72100; 72220

== ENCOUNTER → 2025-09-10 | Outpatient (CLI) | payer MEDICARE, SELFPAY ==
--- OUTSIDE RECORDS SUMMARY | 2025-09-10 07:47 | XMS RPT_ITS | CCD ---
Author Organization [facility] Care Team Providers Care Yeast Stacker Name Role Phone MAHDI, GUS Unavailable Unavailable MAHDI, GUS Unavailable Unavailable [facility] SWATI Unavailable Unavailable [facility] SWATI Unavailable Unavailable Doni DOSintia Unavailable [phone] Doni DOSintia Primary Care Provider HandleyAna fierro DO Unavailable [phone] DONI DO, DR SINTIA Vasquez Primary Care Physician Opal Ramires PT Unavailable Unavailable DEIDRA DOCORNELIO Primary Care Physician José Antonio Cervantes Attending Unavailable Sintia Marion Referring Unavailable Doni, Sintia Primary Care Unavailable DEIDRA DOCORNELIO Attending Unavailable DEIDRA DO, CORNELIO Primary Care Unavailable LYNDON JOHNSTON, DR LEXIE CLARK Attending Unav ailable DEIDRA DO, CORNELIO Primary Care Unavailable LYNDON JOHNSTON, DR LEXIE CLARK Attending Unav ailable DEIDRA DO, CORNELIO Primary Care Unavailable NELSON MIGUEL APRN, CNP Attending U navailable DEIDRA DO, CORNELIO Primary Care Unavailable DONI DO, DR SINTIA Vasquez Attending Unavailabl e DEIDRA DO, CORNELIO Primary Care Unavailable DONI DO, DR SINTIA Vasquez Attending Unavailabl e DEIDRA DO, CORNELIO Primary Care Unavailable DEIDRA DOCORNELIO Attending Unavailable DEIDRA DO, CORNELIO Primary Care Unavailable DONI DO, DR SINTIA Vasquez Attending Unavailabl e DEIDRA DO, CORNELIO Primary Care Unavailable DEIDRA DOCORNELIO Attending Unavailable DEIDRA DO, CORNELIO Primary Care Unavailable DEIDRA DOCORNELIO Primary Care Physician ([id number] CORNELIO GAY DO Attending Unavailable DEIDRA DO, CORNELIO Primary Care Unavailable CORNELIO GAY DO Primary Care Unavailable CORNELIO GAY DO Attending Unavailable CORNELIO GAY DO Primary Care Unavailable CORNELIO GAY DO Attending Unavailable HEATH WILDER Attending UnavailCORNELIO Alexandra DO Primary Care Unavailable Allergies Allergy Classification Reported Allergen(s) Allergy Type Date of Onset Reaction(s) Facility (13 sources) etodolac; Translations: [ETODOLAC] Drug Allergy 8 [facility] Repository (3 sources) Penicillins; Translations: [PENICILLINS] Propensity to adverse reactions to drug (disorder) 8 [facility] Repository (10 sources) Penicillin; Translations: [penicillin] Drug Allergy [facility] Medications Current Medications Medication Drug Class(es) Dates Sig (Normalized) Sig (Original) acetaminophen 325 mg / HYDROcodone bitartrate 5 mg oral tablet (1 source) Opioid Agonist Start: 12-27-2022 End: 12-30-2022 take 1 tablet by mouth every four hours as needed for pain [place] 325- 5 mg oral tablet Dose = 1 tab(s), Oral, q4h, PRN PRN for pain, X 3 day(s), # 20 tab(s), 0 Refill(s), [facility]: [id number], Acute post-operative pain, 172.7, cm, 12/27/22 10:29:00 EDT, Height, 72.7 Start Date: 12/27/22 Stop Date: 12/30/22 Status: Ordered albuterol MDI (90 mcg/inh) CFC free inhalation aerosol (10 sources) Start: 11-11-2020 take 2 puff(s) by inhalation every four hours as needed for wheezing albuterol MDI (90 mcg/inh) CFC free inhalation aerosol 2 puff(s), Inhalation, q4h, PRN as needed for wheezing, # 18 gram(s), 0 Refill(s), [facility], Acute bronchitis, bacterial, 172, cm, 11/11/20 13:46:00 EST, Height, kg, 11/11/20 13:46:00 EST, Dosing Weight Start Date: 11/11/20 Status: Ordered Medication Dispense Status: Completed Quantity: 18.0 Unit: g Total Allowed Fills: 1 Fills Dispensed: 0 Indications: Acute bronchitis due to other specified organisms; Start: 11-11-2020 take 2 puff(s) by in halation every four hours as needed for wheezing albuterol MDI (90 mcg/inh) CFC free inhalation aerosol 2 puff(s), Inhalation, q4h, PRN as needed for wheezing, # 18 gram(s), 0 Refill(s), [facility], Acute bronchitis, bacterial, 172, cm, 11/11/20 13:46:00 EST, Height, kg, 11/11/20 13:46:00 EST, Dosing Weight Start Date: 11/11/20 Status: Ordered Quantity: 18.0 Unit: g Repeat number: 1 Indication: Acute bronchitis due to other specified organisms Start: 11-11-2020 take 2 puff(s) by in halation every four hours as needed for wheezing albuterol MDI (90 mcg/inh) CFC free inhalation aerosol 2 puff(s), Inhalation, q4h, PRN as needed for wheezing, # 18 gram(s), 0 Refill(s), [facility] [place], Acute bronchitis, bacterial, 172, cm, 11/11/20 13:46:00 EST, Height, kg, 11/11/20 13:46:00 EST, Dosing Weight Start Date: 11/11/20 Status: Ordered cephalexin 500 mg oral capsule (1 source) Cephalosporin Antibacterial Start: 02-27-2022 End: 03-04-2022 take 1 capsule by mouth three times daily cephALEXin (KEFLEX) 500 mg capsule Indications: Contact dermatitis due to plant Take 1 capsule by mouth three times daily for 5 days. 15 capsule 0 02/27/2022 03/04/2022 Active Comment on above: Take 1 capsule by [facility] three times daily for 5 days. cetirizine hydrochloride 10 mg oral tablet (7 sources) Histamine-1 Receptor Antagonist Start: 12-25-2022 Zyrtec 10 mg oral tablet Dose : 10 mg = 1 tab(s), Oral, qDay, # 30 tab(s), 0 Refill(s) Start Date: 12/25/22 Status: Ordered Medication Dispense Status: Completed Quantity: 30.0 Unit: tab(s) Total Allowed Fills: 1 Fills Dispensed: 0 Ibuprofen (3 sources) Nonsteroidal Anti-inflammatory Drug Start: 09-12-2024 ibuprofen 0 Refill(s) Start Date: 09/12/24 Status: Ordered Medication Dispense Status: Completed Total Allowed Fills: 1 Fills Dispensed: 0 Start: 09-12-2024 ibuprofen 0 Re fill(s) Start Date: 09/12/24 Status: Ordered Repeat number: 1 Start: 06-27-2018 End: 02-27-2022 take 1 tablet by mouth every six hours as needed ibuprofen (MOTRIN) 600 mg tablet Take 1 tablet by mouth every 6 hours as needed. 60 tablet 0 06/27/2018 02/27/2022 Discontinued Comment on above: Take 1 tablet by marianne th every 6 hours as needed. levothyroxine sodium 0.1 mg oral tablet (13 sources) l-Thyroxine Start: 04-07-2025 Synthroid 100 mcg (0.1 mg) oral tablet Dose : 100 mcg = 1 tab(s), Oral, qDay, [place] - Synthroid please., # 90 tab(s), 1 Refill(s), [place], Pharmacy: [facility] #[id number], Hypothyroidism, 171.5, cm, 12/18/24 9:01:00 EDT, Height, kg, 12/18/24 8:51:00 EDT, Dosing Weight Start Date: 04/07/25 Status: Ordered Medication Dispense Status: Completed Quantity: 90.0 Unit: tab(s) Total Allowed Fills: 2 Fills Dispensed: 0 Indications: Hypothyroidism, unspecified; Start: 09-09-2024 Synthroid 100 mcg (0.1 mg) oral tablet Dose : 100 mcg = 1 tab(s), Oral, qDay, [place] - Synthroid please., # 90 tab(s), 1 Refill(s), [place], Pharmacy: [facility] #[id number], Hypothyroidism, 171.9, cm, 05/20/24 12:18:00 EDT, Height, kg, 05/20/24 12:18:00 EDT, Dosing Weight Start Date: 09/09/24 Status: Ordered Quantity: 90.0 Unit: tab(s) Repeat number: 2 Indication: Hypothyroidism, unspecified Start: 04-21-2024 Synthroid 100 mcg (0.1 mg) oral tablet Dose : 100 mcg = 1 tab(s), Oral, qDay, [place] - Synthroid please., # 90 tab(s), 0 Refill(s), Pharmacy: [facility] #[id number], Hypothyroidism, 171.5, cm, 10/03/23 13:07:00 EST, Height, kg, 10/03/23 13:07:00 EST, Dosing Weight Start Date: 04/21/24 Status: Ordered Start: 04-24-2023 Synthroid 112 mcg (0.112 mg) oral tablet Dose : 112 mcg = 1 tab(s), Oral, qDay, [place]. Decreased dose, please fill immediately, # 60 tab(s), 0 Refill(s), [place], Pharmacy: [facility] #[id number], Hypothyroidism, 172.7, cm, 01/24/23 10:12:00 EDT, Height, kg, 01/24/23 10:12:00 EDT, Dosing Weight Start Date: 04/24/23 Status: Ordered Start: 01-22-2023 Synthroid 125 mcg (0.125 mg) oral tablet Dose : 125 mcg = 1 tab(s), Oral, qDay, Change in dose, # 90 tab(s), 0 Refill(s), Pharmacy: [facility] #[id number], Hypothyroidism, 172.7, cm, 12/27/22 10:29:00 EDT, Height Start Date: 01/22/23 Status: Ordered Start: 11-16-2022 Synthroid 137 mcg (0.137 mg) oral tablet Dose : 137 mcg = 1 tab(s), Oral, qDay, [place]. change in dose, # 30 tab(s), 1 Refill(s), [place], Pharmacy: [facility] #[id number], 172, cm, 11/15/22 11:31:00 EST, Height Start Date: 11/16/22 Status: Ordered Start: 08-23-2022 Synthroid 150 mcg (0.15 mg) oral tablet Dose : 150 mcg = 1 tab(s), Oral, qDay, PT NEEDS BRAND SYNTHROID, # 30 tab(s), 11 Refill(s), [place], [facility]: [facility][id number], 172.72, cm, 07/31/22 15:18:00 EST, Height, kg, 07/31/22 15:18:00 EST, Dosing Weight Start Date: 08/23/22 Status: Ordered take 1 tablet by marianne once daily before breakfast levothyroxine (SYNTHROID) 150 mcg tablet Take 150 mcg by mouth daily before breakfast. Name brand only 0 Active Comment on above: Take 150 mcg by mout h daily before breakfast. Name brand only Azo Urinary Pain Relief (2 sources) Start: 09-12-2024 Azo-Standard mg =, Oral, TIDPC, 0 Refill(s) Start Date: 09/12/24 Status: Ordered Medication Dispense Status: Completed Total Allowed Fills: 1 Fills Dispensed: 0 Start: 09-12-2024 Azo-Standard m g =, Oral, TIDPC, 0 Refill(s) Start Date: 09/12/24 Status: Ordered Repeat number: 1 predniSONE 10 mg oral tablet (1 source) Start: 02-27-2022 End: 03-04-2022 take 5 tablets by mouth once daily, then take 4 tablets by mouth once daily, then take 3 tablets by mouth once daily, then take 2 tablets by mouth once daily, then take 1 tablet by mouth once daily predniSONE (DELTASONE) 10 mg tablet Indications: Bilateral lower leg cellulitis Take 5 tablets by mouth once daily for 1 day, THEN 4 tablets once daily for 1 day, THEN 3 tablets once daily for 1 day, THEN 2 tablets once daily for 1 day, THEN 1 tablet once daily for 1 day. 15 tablet 0 02/27/2022 03/04/2022 Active Comment on above: Take 5 tablets by mo [facility] once daily for 1 day, THEN 4 tablets once daily for 1 day, THEN 3 tablets once daily for 1 day, THEN 2 tablets once daily for 1 day, THEN 1 tablet once daily for 1 day. sulfamethoxazole 800 mg / trimethoprim 160 mg oral tablet (1 source) Dihydrofolate Reductase Inhibitor Antibacterial, Sulfonamide Antimicrobial Start: 09-12-2024 End: 09-19-2024 take 1 tablet by mouth twice daily Bactrim DS 800 mg-160 mg oral tablet Dose = 1 tab(s), Oral, BID, X 7 day(s), # 14 tab(s), 0 Refill(s), Pharmacy: [facility] #[id number], 171.4, cm, 09/12/24 9:13:00 EST, Height, 125.9, kg, 09/12/24 9:13:00 EST, Dosing Weight Start Date: 09/12/24 Stop Date: 09/19/24 Status: Ordered Quantity: 14.0 Unit: tab(s) Repeat number: 1 Indication: Urinary tract infection, site not specified Vitamin D3 1250 mcg (50,000 intl units) oral capsule (1 source) Start: 12-19-2024 take 1 capsule by mouth once, then take 1 capsule by mouth every week Vitamin D3 1250 mcg (50,000 intl units) oral capsule Dose : 1,250 mcg = 1 cap(s), Oral, 2X/week, # 26 cap(s), 3 Refill(s), Pharmacy: [facility] #[id number], Vitamin D deficiency, 171.5, cm, 12/18/24 9:01:00 EDT, Height, kg, 12/18/24 8:51:00 EDT, Dosing Weight Start Date: 12/19/24 Status: Ordered Medication Dispense Status: Completed Quantity: 26.0 Unit: cap(s) Total Allowed Fills: 4 Fills Dispensed: 0 Indications: Vitamin D deficiency, unspecified; Completed/Discontinued Medications Medication Drug Class(es) Dates Sig (Normalized) Sig (Original) Albuterol (1 source) beta2-Adrenergic Agonist albuterol sulfate (PROVENTIL INHALATION) Inhale 1 Inhalation as instructed as needed. 0 Active Comment on above: Inhale 1 Inhalation as instructed as nee ded. docusate sodium 100 mg oral capsule (1 source) Start: 06-27-2018 End: 02-27-2022 take 1 capsule by mouth twice daily docusate sodium (COLACE) 100 mg capsule Take 1 capsule by mouth twice daily. 60 capsule 0 06/27/2018 02/27/2022 Discontinued Comment on above: Take 1 capsule by mouth twice daily. 0.8 ml enoxaparin sodium 150 mg/ml prefilled syringe (1 source) Low Molecular Weight Heparin Start: 10-14-2018 End: 02-27-2022 inject 0.8 mL by subcutaneous injection twice daily enoxaparin (LOVENOX) 120 mg/0.8 mL injection Indications: Acute deep vein thrombosis (DVT) of tibial vein of left lower extremity (HCC) , Acute deep vein thrombosis (DVT) of distal vein of left lower extremity (HCC) , Superficial thrombosis of left lower extremity Inject 0.8 mL subcutaneously twice daily. Inject entire contents of one(1) syringe 60 Syringe 5 10/14/2018 02/27/2022 Discontinued Comment on above: Inject 0.8 mL subcutaneously twice daily . Inject entire contents of one(1) syringe Problems Active Problems Problem Classification Problem Date Documented Date Episodic/Chronic Allergic reactions (1 source) Contact dermatitis due to plants; Translations: [Unspecified contact dermatitis due to plants, except food] Episodic Biliary tract disease (9 sources) Biliary calculus; Translations: [Calculus of gallbladder with chronic cholecystitis without obstruction] Onset: 12-27-2022 12-20-2022 Episodic Disorders of lipid metabolism (11 sources) Pure hypercholesterolemia; Translations: [Pure hypercholesterolemia, unspecified] 07-10-2019 Chronic Heart valve disorders (7 sources) Mitral valve prolapse 12-18-2022 Chronic Malaise and fatigue (1 source) Fatigue 12-18-2024 Episodic Nutritional deficiencies (10 sources) Vitamin D deficiency 07-10-2019 Chronic Other aftercare (5 sources) Surgical follow-up 01-24-2023 Episodic Other complications of (1 source) Deep phlebothrombosis in , unspecified trimester; Translations: [Deep phlebothrombosis in , unspecified trimester] Onset: 06-24-2018 Episodic Other connective tissue disease (10 sources) H/O: osteoarthritis 07-10-2019 Episodic Other connective tissue disease (1 source) Muscle pain 12-18-2024 Episodic Other female genital disorders (1 source) 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]; Translations: [Endometrial intraepithelial neoplasia (EIN)] Onset: 05-29-2018 Chronic Other female genital disorders (1 source) Complex atypical endometrial hyperplasia; Translations: [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]] Onset: 05-29-2018 05-29-2018 Chronic Other nervous system disorders (1 source) Other acute postprocedural pain; Translations: [Other acute postprocedural pain] Onset: 06-27-2018 Episodic Other nervous system disorders (1 source) Postoperative pain ; Translations: [Other acute postprocedural pain] Onset: 12-27-2022 Episodic Other nutritional; endocrine; and metabolic disorders (5 sources) Morbid obesity; Translations: [Morbid (severe) obesity due to excess calories] Onset: 06-14-2018 06-14-2018 Chronic Other nutritional; endocrine; and metabolic disorders (5 sources) Body mass index 40+ - severely obese; Translations: [Morbid (severe) obesity due to excess calories] Onset: 06-27-2018 06-27-2018 Chronic Other skin disorders (4 sources) Inflammatory dermatosis 05-01-2023 Episodic Other skin disorders (1 source) Xeroderma 12-18-2024 Episodic Prolapse of female genital organs (10 sources) Cystocele 07-10-2019 Chronic Residual codes; unclassified (1 source) Screening due 12-18-2024 Episodic Skin and subcutaneous tissue infections (1 source) Cellulitis of lower leg; Translations: [Cellulitis of left lower limb] Episodic Thyroid disorders (20 sources) Acquired hypothyroidism; Translations: [Hypothyroidism, unspecified] Onset: 06-14-2018 06-14-2018 Chronic Unclassified (4 sources) Never used tobacco 05-01-2023 Unclassified (6 sources) Patient encounter status 05-20-2024 Varicose veins of lower extremity (4 sources) Varicose veins of lower extremity; Translations: [Varicose veins of bilateral lower extremities with pain] Onset: 06-14-2018 06-14-2018 Episodic Viral infection (10 sources) Herpes zoster 07-10-2019 Episodic Past or Other Problems Problem Classification Problem Date Documented Da te Episodic/Chronic Genitourinary symptoms and ill-defined conditions (4 sources) Urgency of urination; Translations: [Frequency of micturition] Onset: 09-12-2024 Episodic Other aftercare (1 source) Patient encounter status; Translations: [Encounter for therapeutic drug level monitoring] Onset: 06-21-2018 06-21-2018 Episodic Other screening for suspected conditions (not mental disorders or infectious disease) (2 sources) Encounter for screening mammogram for malignant neoplasm of breast; Translations: [Encounter for screening mammogram for malignant neoplasm of breast] Onset: 06-16-2024 Episodic Phlebitis; thrombophlebitis and thromboembolism (3 sources) Acute embolism and thrombosis of unspecified deep veins of unspecified lower extremity; Translations: [Deep venous thrombosis] Onset: 06-20-2018 06-20-2018 Episodic Results Test Name Value Interpretation Reference Range Facility .GFRon 06-03-2025 Estimated Glomerular Filtration Rate 79 ml/min/1.73sqm Normal [facility] Comment on above: Result Comment: Stages of Chronic Kidney Disease (CKD) Stage Description eGFR(ml/min/1.73 sq.m.) CKD 1 Normal kidney function or >=90 normal kindney function with possible kidney damage (ex. Proteinuria) CKD 2 Kidney damage with mild loss 60-89 of kidney function CKD 3a Mild to moderate loss of kidney 45-59 function CKD 3b Moderate to severe loss of 30-44 of kindey function CKD 4 Severe loss of kidney function 15-29 CKD 5 Kidney failure <15 Note: (go live 2024) the eGFR calculation was updated to the 2020 CKD-EPI creatinine equation without a race factor to calculate the eGFR results. Performed By: #### L IPID, CMP, A1C, VIDH, TSHR, GFR #### [address] [address] A1Con 06-03-2025 Glucose [Mass/Vol] 117 mg/dL Normal [facility] Comment on above: Result Comment: Fara mated Average Glucose calculated by equation ((28.7xA1C)-46.7) Estimated average glucose (eAG) is a calculated value from Hemoglobin A1C and is retail field representative of the average blood glucose level in the last 2-3 month period. Normal range: less than 114 mg/dL Performed By: #### L IPID, CMP, A1C, VIDH, TSHR, GFR #### [address] [address] HbA1c (Bld) [Mass fraction] 5.7 % Normal 4.3-6.4 [facility] Comment on above: Performed By: #### L IPID, CMP, A1C, VIDH, TSHR, GFR #### [address] [address] CMP 06-03-2025 Albumin Level 3.9 G/dL Normal 3.4-4.8 [facility] Comment on above: Performed By: #### L IPID, CMP, A1C, VIDH, TSHR, GFR #### [address] [address] Albumin/Globulin [Mass ratio] 1.1 {ratio} Normal 1.1-2.5 [facility] Comment on above: Performed By: #### L IPID, CMP, A1C, VIDH, TSHR, GFR #### [address] [address] ALP [Catalytic activity/Vol] 117 U/L Normal 40-135 [facility] Comment on above: Performed By: #### L IPID, CMP, A1C, VIDH, TSHR, GFR #### [address] [address] ALT [Catalytic activity/Vol] 40 U/L Normal 14-59 [facility] Comment on above: Performed By: #### L IPID, CMP, A1C, VIDH, TSHR, GFR #### [address] [address] AST [Catalytic activity/Vol] 21 U/L Normal 10-40 [facility] Comment on above: Performed By: #### L IPID, CMP, A1C, VIDH, TSHR, GFR #### [address] [address] Bili Total 1.3 mg/dL High 0.2-1.0 [facility] Comment on above: Result Comment: Use of this assay is not recommended for patients undergoing treatment with eltrombopag due to the potential for falsely elevated results. Performed By: #### L IPID, CMP, A1C, VIDH, TSHR, GFR #### [address] [address] BUN/Creatinine Ratio 16 ratio Normal 7-27 [facility] Comment on above: Performed By: #### L IPID, CMP, A1C, VIDH, TSHR, GFR #### [address] [address] Calcium [Mass/Vol] 9.2 mg/dL Normal 8.4-10.2 [facility] Comment on above: Performed By: #### L IPID, CMP, A1C, VIDH, TSHR, GFR #### [place] [address] Chloride [Moles/Vol] 104 mmol/L Normal 98-107 [facility] Comment on above: Performed By: #### L IPID, CMP, A1C, VIDH, TSHR, GFR #### [place] [address] CO2 [Moles/Vol] 32 mmol/L High 23-31 [facility] Comment on above: Performed By: #### L IPID, CMP, A1C, VIDH, TSHR, GFR #### [place] [address] Creatinine [Mass/Vol] 0.83 mg/dL Normal 0.51-0.95 [facility] Comment on above: Performed By: #### L IPID, CMP, A1C, VIDH, TSHR, GFR #### [place] [address] Electrolyte Balance 5.0 mEq/L Normal 4.0-15.0 [facility] Comment on above: Performed By: #### L IPID, CMP, A1C, VIDH, TSHR, GFR #### [place] [address] Globulin 3.7 G/dL Normal 2.7-4.4 [facility] Comment on above: Performed By: #### L IPID, CMP, A1C, VIDH, TSHR, GFR #### [place] [address] Glucose [Mass/Vol] 122 mg/dL High 80-115 [facility] Comment on above: Performed By: #### L IPID, CMP, A1C, VIDH, TSHR, GFR #### [place] [address] Potassium [Moles/Vol] 4.1 mmol/L Normal 3.5-5.1 [facility] Comment on above: Performed By: #### L IPID, CMP, A1C, VIDH, TSHR, GFR #### [address] [address] Sodium [Moles/Vol] 141 mmol/L Normal 136-145 [facility] Comment on above: Performed By: #### L IPID, CMP, A1C, VIDH, TSHR, GFR #### [place] [id number] [place], [place] [address] Total Protein 7.6 G/dL Normal 6.4-8.2 [facility] Comment on above: Performed By: #### L IPID, CMP, A1C, VIDH, TSHR, GFR #### [place] [id number] [place], [place] [address] Urea nitrogen [Mass/Vol] 13 mg/dL Normal 7-18 [facility] Comment on above: Performed By: #### L IPID, CMP, A1C, VIDH, TSHR, GFR #### [address] [address] LABORATORYOrdered By: SYSTEM SYSTEM on 06-03-2025 25-hydroxyvitamin D3 [Mass/Vol] 66.7 ng/mL Invalid Interpretation Code AO ADM SS Comment on above: Interpretive Data: I nterpretive Values Based on Total 25(OH) Vitamin D: Deficient <20 ng/mL Insufficient 20 - <30 ng/mL Sufficient 30-100 ng/mL Albumin BCP dye [Mass/Vol] 3.9 G/dL Normal 3.4 - 4.8 G/dL AO ADM SS Albumin/Globulin [Mass ratio] 1.1 {ratio} Normal 1.1 - 2.5 ratio AO ADM SS ALP [Catalytic activity/Vol] 117 U/L Normal 40 - 135 U/L AO ADM SS ALT With P-5'-P [Catalytic activity/Vol] 40 U/L Normal 14 - 59 U/L AO ADM SS AST With P-5'-P [Catalytic activity/Vol] 21 U/L Normal 10 - 40 U/L AO ADM SS Bilirubin [Mass/Vol] 1.3 mg/dL High 0.2 - 1.0 mg/dL AO ADM SS Comment on above: Interpretive Data: U se of this assay is not recommended for patients undergoing treatment with eltrombopag due to the potential for falsely elevated results. Calcium [Mass/Vol] 9.2 mg/dL Normal 8.4 - 10. 2 mg/dL AO ADM SS Chloride [Moles/Vol] 104 mmol/L Normal 98 - 107 mmol/L AO ADM SS CO2 [Moles/Vol] 32 mmol/L High 23 - 31 mmol/L AO ADM SS Creatinine [Mass/Vol] 0.83 mg/dL Normal 0.51 - 0.95 mg/dL AO ADM SS Electrolyte Balance 5.0 mEq/L Normal 4.0 - 15 .0 mEq/L AO ADM SS Estimated Glomerular Filtration Rate 79 ml/min/1.73sqm Invalid Interpretation Code AO Chemistry S Comment on above: Interpretive Data: Stages of Chronic Kidney Disease (CKD) Stage Description eGFR(ml/min/1.73 sq.m.) CKD 1 Normal kidney function or >=90 normal kindney function with possible kidney damage (ex. Proteinuria) CKD 2 Kidney damage with mild loss 60-89 of kidney function CKD 3a Mild to moderate loss of kidney 45-59 function CKD 3b Moderate to severe loss of 30-44 of kindey function CKD 4 Severe loss of kidney function 15-29 CKD 5 Kidney failure <15 Note: (go live 2024) the eGFR calculation was updated to the 2020 CKD-EPI creatinine equation without a race factor to calculate the eGFR results. Globulin 3.7 G/dL Normal 2.7 - 4.4 G/dL AO ADM SS Glucose [Mass/Vol] 122 mg/dL High 80 - 115 mg/dL AO ADM SS Glucose [Mass/Vol] 117 mg/dL Invalid Interpretation Code AO Chemistry S Comment on above: Interpretive Data: E stimated average glucose (eAG) is a calculated value from Hemoglobin A1C and is retail field representative of the average blood glucose level in the last 2-3 month period. Normal range: less than 114 mg/dL HbA1c (Bld) [Mass fraction] 5.7 % Normal 4.3 - 6.4 % AO ADM SS Potassium [Moles/Vol] 4.1 mmol/L Normal 3.5 - 5.1 mmol/L AO ADM SS Protein [Mass/Vol] 7.6 G/dL Normal 6.4 - 8.2 G/dL AO ADM SS Sodium [Moles/Vol] 141 mmol/L Normal 136 - 145 mmol/L AO ADM SS TSH Qn 0.52 m[IU]/L Normal 0.36 - 3.74 mcIU/mL AO ADM SS Urea nitrogen [Mass/Vol] 13 mg/dL Normal 7 - 18 mg/dL AO ADM SS Urea nitrogen/Creatinine [Mass ratio] 16 ratio Normal 7 - 27 ratio AO ADM SS LABORATORYOrdered By: Santa Busby on 06-03-2025 Cholesterol [Mass/Vol] 198 mg/dL Normal 0 - 200 mg/dL AO ADM SS Comment on above: Interpretive Data: C holesterol Reference Interval: Less than 200 Desirable 200-239 Borderline high risk 240 and above High risk Cholesterol in HDL [Mass/Vol] 48 mg/dL Normal 40 - 60 mg/dL AO ADM SS Cholesterol in LDL [Mass/Vol] 137 mg/dL High 0 - 130 mg/dL AO ADM SS Triglyceride [Mass/Vol] 64 mg/dL Normal 0 - 150 mg/dL AO ADM SS Comment on above: Interpretive Data: T riglyceride Reference Interval: Less than 150 Normal 150-199 Borderline high risk 200-499 High risk 500 or higher Very high risk LIPIDon 06-03-2025 Cholesterol [Mass/Vol] 198 mg/dL Normal 0-200 [facility] Comment on above: Result Comment: Chol esterol Reference Interval: Less than 200 Desirable 200-239 Borderline high risk 240 and above High risk Performed By: #### L IPID, CMP, A1C, VIDH, TSHR, GFR #### [address] [address] Cholesterol in HDL [Mass/Vol] 48 mg/dL Normal 40-60 [facility] Comment on above: Performed By: #### L IPID, CMP, A1C, VIDH, TSHR, GFR #### [address] [address] Cholesterol in LDL [Mass/Vol] 137 mg/dL High 0-130 [facility] Comment on above: Performed By: #### L IPID, CMP, A1C, VIDH, TSHR, GFR #### [address] [address] Triglyceride [Mass/Vol] 64 mg/dL Normal 0-150 [facility] Comment on above: Result Comment: Trig lyceride Reference Interval: Less than 150 Normal 150-199 Borderline high risk 200-499 High risk 500 or higher Very high risk Performed By: #### L IPID, CMP, A1C, VIDH, TSHR, GFR #### [address] [address] TSHRon 06-03-2025 TSH Qn 0.52 m[IU]/L Normal 0.36-3.74 [facility] Comment on above: Performed By: #### L IPID, CMP, A1C, VIDH, TSHR, GFR #### [address] [address] VIDHon 06-03-2025 Vit. D 25-Hydroxy 66.7 ng/mL Normal [facility] Comment on above: Result Comment: Inte rpretive Values Based on Total 25(OH) Vitamin D: Deficient <20 ng/mL Insufficient 20 - <30 ng/mL Sufficient 30-100 ng/mL Performed By: #### L IPID, CMP, A1C, VIDH, TSHR, GFR #### [address] [address] .Auto Diffon 12-19-2024 Basophil, Absolute 0.1 10 3/mcL Normal 0.0-0.2 [facility] Comment on above: Performed By: #### F T3, CMP, ADIFF, GFR, LIPID, ANEU, CBC, FT4, VIDH, TSH #### [address] [address] Basophils/100 WBC (Bld) 1.4 % Normal 0.0-2.5 [facility] Comment on above: Performed By: #### F T3, CMP, ADIFF, GFR, LIPID, ANEU, CBC, FT4, VIDH, TSH #### [address] [address] Eosinophil, Absolute 0.2 10 3/mcL Normal 0.0-0.7 [facility] Comment on above: Performed By: #### F T3, CMP, ADIFF, GFR, LIPID, ANEU, CBC, FT4, VIDH, TSH #### [address] [address] Eosinophils/100 WBC (Bld) 4.9 % Normal 0.0-7.0 [facility] Comment on above: Performed By: #### F T3, CMP, ADIFF, GFR, LIPID, ANEU, CBC, FT4, VIDH, TSH #### [address] [address] Lymphocyte, Absolute 1.4 10 3/mcL Normal 0.9-4.3 [facility] Comment on above: Performed By: #### F T3, CMP, ADIFF, GFR, LIPID, ANEU, CBC, FT4, VIDH, TSH #### [address] [address] Lymphocytes/100 WBC (Bld) 26.9 % Normal 20.0-40.0 [facility] Comment on above: Performed By: #### F T3, CMP, ADIFF, GFR, LIPID, ANEU, CBC, FT4, VIDH, TSH #### [address] [address] Monocyte, Absolute 0.5 10 3/mcL Normal 0.1-1.4 [facility] Comment on above: Performed By: #### F T3, CMP, ADIFF, GFR, LIPID, ANEU, CBC, FT4, VIDH, TSH #### [address] [address] Monocytes/100 WBC (Bld) 10.7 % Normal 2.0-13.0 [facility] Comment on above: Performed By: #### F T3, CMP, ADIFF, GFR, LIPID, ANEU, CBC, FT4, VIDH, TSH #### [address] [address] Neutrophils/100 WBC (Bld) 56.1 % Normal 50.0-75.0 [facility] Comment on above: Performed By: #### F T3, CMP, ADIFF, GFR, LIPID, ANEU, CBC, FT4, VIDH, TSH #### [address] [address] .GFRon 12-19-2024 Estimated Glomerular Filtration Rate 83 ml/min/1.73sqm Normal [facility] Comment on above: Result Comment: Stages of Chronic Kidney Disease (CKD) Stage Description eGFR(ml/min/1.73 sq.m.) CKD 1 Normal kidney function or >=90 normal kindney function with possible kidney damage (ex. Proteinuria) CKD 2 Kidney damage with mild loss 60-89 of kidney function CKD 3a Mild to moderate loss of kidney 45-59 function CKD 3b Moderate to severe loss of 30-44 of kindey function CKD 4 Severe loss of kidney function 15-29 CKD 5 Kidney failure <15 Note: (go live 2024) the eGFR calculation was updated to the 2020 CKD-EPI creatinine equation without a race factor to calculate the eGFR results. Performed By: #### F T3, CMP, ADIFF, GFR, LIPID, ANEU, CBC, FT4, VIDH, TSH ####[place] [address] [place], [place] [address] .NEUABSon 12-19-2024 Neutrophil, Absolute 2.8 10 3/mcL Normal 2.3-8.1 [facility] Comment on above: Performed By: #### F T3, CMP, ADIFF, GFR, LIPID, ANEU, CBC, FT4, VIDH, TSH ####[address] [address] CBCon 12-19-2024 Erythrocyte distribution width (RBC) [Ratio] 12.8 % Normal 11.5-15.5 [facility] Comment on above: Performed By: #### F T3, CMP, ADIFF, GFR, LIPID, ANEU, CBC, FT4, VIDH, TSH #### [place] [id number] Hematocrit (Bld) [Volume fraction] 41.2 % Normal 34.0-46.0 [facility] Comment on above: Performed By: #### F T3, CMP, ADIFF, GFR, LIPID, ANEU, CBC, FT4, VIDH, TSH #### [address] [address] Hgb 14.4 G/dL Normal 12.0-16.0 [facility] Comment on above: Performed By: #### F T3, CMP, ADIFF, GFR, LIPID, ANEU, CBC, FT4, VIDH, TSH #### [address] [address] MCH (RBC) [Entitic mass] 32.4 pg Normal 27.0-33.0 [facility] Comment on above: Performed By: #### F T3, CMP, ADIFF, GFR, LIPID, ANEU, CBC, FT4, VIDH, TSH #### [place] [address] MCHC 35.0 G/dL Normal 32.0-36.0 [facility] Comment on above: Performed By: #### F T3, CMP, ADIFF, GFR, LIPID, ANEU, CBC, FT4, VIDH, TSH #### [place] [id number] MCV (RBC) [Entitic vol] 92.7 fL Normal 80.0-99.0 [facility] Comment on above: Performed By: #### F T3, CMP, ADIFF, GFR, LIPID, ANEU, CBC, FT4, VIDH, TSH #### [address] [address] Platelet 228 10 3/mcL Normal 150-450 [facility] Comment on above: Performed By: #### F T3, CMP, ADIFF, GFR, LIPID, ANEU, CBC, FT4, VIDH, TSH #### [address] [address] Platelet mean volume (Bld) [Entitic vol] 8.3 fL Normal 6.6-10.5 [facility] Comment on above: Performed By: #### F T3, CMP, ADIFF, GFR, LIPID, ANEU, CBC, FT4, VIDH, TSH #### [place] [id number] RBC 4.44 10 6/mcL Normal 4.10-5.30 [facility] Comment on above: Performed By: #### F T3, CMP, ADIFF, GFR, LIPID, ANEU, CBC, FT4, VIDH, TSH #### [address] [address] WBC 5.1 10 3/mcL Normal 4.5-10.8 [facility] Comment on above: Performed By: #### F T3, CMP, ADIFF, GFR, LIPID, ANEU, CBC, FT4, VIDH, TSH #### [place] [address] [place], [place] [address] CMPon 12-19-2024 Albumin Level 4.0 G/dL Normal 3.4-4.8 [facility] Comment on above: Performed By: #### F T3, CMP, ADIFF, GFR, LIPID, ANEU, CBC, FT4, VIDH, TSH ####[place] [address] [place], [place] [address] Albumin/Globulin [Mass ratio] 1.2 {ratio} Normal 1.1-2.5 [facility] Comment on above: Performed By: #### F T3, CMP, ADIFF, GFR, LIPID, ANEU, CBC, FT4, VIDH, TSH ####[place] [address] [place], [place] [address] ALP [Catalytic activity/Vol] 134 U/L Normal 40-135 [facility] Comment on above: Performed By: #### F T3, CMP, ADIFF, GFR, LIPID, ANEU, CBC, FT4, VIDH, TSH ####[place] [address] [place], [place] [address] ALT [Catalytic activity/Vol] 43 U/L Normal 14-59 [facility] Comment on above: Performed By: #### F T3, CMP, ADIFF, GFR, LIPID, ANEU, CBC, FT4, VIDH, TSH ####[place] [address] [place], [place] [address] AST [Catalytic activity/Vol] 25 U/L Normal 10-40 [facility] Comment on above: Performed By: #### F T3, CMP, ADIFF, GFR, LIPID, ANEU, CBC, FT4, VIDH, TSH ####[address] [address] Bili Total 0.8 mg/dL Normal 0.2-1.0 [facility] Comment on above: Result Comment: Use of this assay is not recommended for patients undergoing treatment with eltrombopag due to the potential for falsely elevated results. Performed By: #### F T3, CMP, ADIFF, GFR, LIPID, ANEU, CBC, FT4, VIDH, TSH ####[place] [address] [place] [address] BUN/Creatinine Ratio 21 ratio Normal 7-27 [facility] Comment on above: Performed By: #### F T3, CMP, ADIFF, GFR, LIPID, ANEU, CBC, FT4, VIDH, TSH ####[place] [address] [place] [address] Calcium [Mass/Vol] 8.9 mg/dL Normal 8.4-10.2 [facility] Comment on above: Performed By: #### F T3, CMP, ADIFF, GFR, LIPID, ANEU, CBC, FT4, VIDH, TSH ####[place] [address] [place] [address] Chloride [Moles/Vol] 107 mmol/L Normal 98-107 [facility] Comment on above: Performed By: #### F T3, CMP, ADIFF, GFR, LIPID, ANEU, CBC, FT4, VIDH, TSH ####[place] [address] [place] [address] CO2 [Moles/Vol] 30 mmol/L Normal 23-31 [facility] Comment on above: Performed By: #### F T3, CMP, ADIFF, GFR, LIPID, ANEU, CBC, FT4, VIDH, TSH ####[place] [address] [place] [address] Creatinine [Mass/Vol] 0.80 mg/dL Normal 0.55-1.02 [facility] Comment on above: Result Comment: Test ing performed on [employer] Dimension EXL analyzer using a modified kinetic [place] technique. Performed By: #### F T3, CMP, ADIFF, GFR, LIPID, ANEU, CBC, FT4, VIDH, TSH ####[place] [address] [place] [address] Electrolyte Balance 6.0 mEq/L Normal 4.0-15.0 [facility] Comment on above: Performed By: #### F T3, CMP, ADIFF, GFR, LIPID, ANEU, CBC, FT4, VIDH, TSH ####[facility] [place], [place] [address] Globulin 3.2 G/dL Normal 1.5-3.8 [facility] Comment on above: Performed By: #### F T3, CMP, ADIFF, GFR, LIPID, ANEU, CBC, FT4, VIDH, TSH ####[place] [address] [place], [place] [address] Glucose [Mass/Vol] 101 mg/dL Normal 80-115 [facility] Comment on above: Performed By: #### F T3, CMP, ADIFF, GFR, LIPID, ANEU, CBC, FT4, VIDH, TSH ####[address] [address] Potassium [Moles/Vol] 4.0 mmol/L Normal 3.5-5.1 [facility] Comment on above: Performed By: #### F T3, CMP, ADIFF, GFR, LIPID, ANEU, CBC, FT4, VIDH, TSH ####[place] [address] [place], [place] [address] Sodium [Moles/Vol] 143 mmol/L Normal 136-145 [facility] Comment on above: Performed By: #### F T3, CMP, ADIFF, GFR, LIPID, ANEU, CBC, FT4, VIDH, TSH ####[place] [address] [place], [place] [address] Total Protein 7.2 G/dL Normal 6.4-8.2 [facility] Comment on above: Performed By: #### F T3, CMP, ADIFF, GFR, LIPID, ANEU, CBC, FT4, VIDH, TSH ####[place] [address] [place], [place] [address] Urea nitrogen [Mass/Vol] 17 mg/dL Normal 7-18 [facility] Comment on above: Performed By: #### F T3, CMP, ADIFF, GFR, LIPID, ANEU, CBC, FT4, VIDH, TSH ####[facility] [place], [place] [address] FT3on 12-19-2024 Free T3 [Mass/Vol] 2.55 pg/mL Normal 2.30-4.00 [facility] Comment on above: Performed By: #### F T3, CMP, ADIFF, GFR, LIPID, ANEU, CBC, FT4, VIDH, TSH ####[place] [address] [place], [place] [address] FT4on 12-19-2024 Free T4 [Mass/Vol] 1.16 ng/dL Normal 0.76-1.46 [facility] Comment on above: Performed By: #### F T3, CMP, ADIFF, GFR, LIPID, ANEU, CBC, FT4, VIDH, TSH ####[place] [address] [place], [place] [address] LIPIDon 12-19-2024 Cholesterol [Mass/Vol] 193 mg/dL Normal 0-200 [facility] Comment on above: Result Comment: Chol esterol Reference Interval: Less than 200 Desirable 200-239 Borderline high risk 240 and above High risk Performed By: #### F T3, CMP, ADIFF, GFR, LIPID, ANEU, CBC, FT4, VIDH, TSH ####[place] [address] [place], [place] [address] Cholesterol in HDL [Mass/Vol] 50 mg/dL Normal 40-60 [facility] Comment on above: Performed By: #### F T3, CMP, ADIFF, GFR, LIPID, ANEU, CBC, FT4, VIDH, TSH ####[place] [address] [place], [place] [address] Cholesterol in LDL [Mass/Vol] 125 mg/dL Normal 0-130 [facility] Comment on above: Performed By: #### F T3, CMP, ADIFF, GFR, LIPID, ANEU, CBC, FT4, VIDH, TSH ####[place] [address] [place], [place] [address] Triglyceride [Mass/Vol] 88 mg/dL Normal 0-150 [facility] Comment on above: Result Comment: Trig lyceride Reference Interval: Less than 150 Normal 150-199 Borderline high risk 200-499 High risk 500 or higher Very high risk Performed By: #### F T3, CMP, ADIFF, GFR, LIPID, ANEU, CBC, FT4, VIDH, TSH ####[facility] [place], [place] [address] TSHon 12-19-2024 TSH Qn 0.82 m[IU]/L Normal 0.36-3.74 [facility] Comment on above: Performed By: #### F T3, CMP, ADIFF, GFR, LIPID, ANEU, CBC, FT4, VIDH, TSH ####[facility] [place], [place] [address] VIDHon 12-19-2024 Vit. D 25-Hydroxy 13.8 ng/mL Normal [facility] Comment on above: Result Comment: Inte rpretive Values Based on Total 25(OH) Vitamin D: Deficient <20 ng/mL Insufficient 20 - <30 ng/mL Sufficient 30-100 ng/mL Performed By: #### F T3, CMP, ADIFF, GFR, LIPID, ANEU, CBC, FT4, VIDH, TSH ####[place] [address] [place], [place] [address] No Panel Informationon 09-12 Culture Urine <10,000 cfu/ml. No Significant growth. Sensitivity not indicated. [facility] Work Phone: MA MAMMOGRAM SCREENING BILAT ERAL W/TOMOon 06-18-2024 MA MAMMOGRAM SCREENING BILATERAL W/DEJUAN ORIGINAL FROM: [facility] [address] [place], [place] [address] PROCEDURE FOR: CARA HOOD [address] [place] [address] Home: PID#: [id number] Exam#: [id number] : 1960 Age: 64 TO: CORNELIO GAY DO [address] [address] Fax: NO FAX EXAMINATION: SCREENING DIGITAL BILATERAL MAMMOGRAM WITH TOMOSYNTHESIS, 06/16/2024 2:27 pm TECHNIQUE: Screening mammography of the bilateral breasts was performed with tomosynthesis. 2D standard and 3D tomosynthesis combination imaging performed through both breasts in the MLO and CC projection. Computer aided detection was utilized in the interpretation of this exam. COMPARISON: 08/28/2022 HISTORY: Breast cancer screening. FINDINGS: BREAST DENSITY: The breasts are almost entirely fatty. Biopsy clip is present in the right breast. There are no significant masses or calcifications. IMPRESSION: No mammographic evidence of malignancy. Continued screening with annual mammograms is recommended. Danica zi risk calculations, generated with the history provided, report this patient's 10 year risk and lifetime risk for developing breast cancer at 5.8% and 13.2%, respectively. Based on this assessment tool, if the patient's calculated lifetime risk is below 20%, then the patient is considered at average risk for developing breast cancer. If the patient's calculated lifetime risk is at or above 20%, then the patient is considered high risk for developing breast cancer and may be a candidate for supplemental breast MRI screening in addition to annual mammographic screening per the [employer]. BIRADS: BI-RADS: 1: Negative RECALL: 1 year screening RECALL TYPE: mammo LETTER SENT: Normal BI-RADS 1 and 2 Interpreted by: Hu Ballesteros MD Preliminary Report By: Hu Ballesteros MD Electronically signed By Hu Ballesteros MD Dictated Date: 06/18/2024 8:13:29 PM Prelim Date: 06/18/2024 8:16:42 PM Sign Date: 06/18/2024 8:16:42 PM Ordering Provider: CORNELIO GAY [employer] Specialist: DAVID HOPE RT(R)(M)(CT) letter sent: Normal BI-RADS 1 and 2 Mammogram BI-RADS: 1 Negative Normal [facility] US THYROIDon 06-16-2024 US THYROID ORIGINAL EXAMINATION: ULTRASOUND OF THE THYROID WITH COLOR DOPPLER FLOW EVALUATION06/16/2024 3:10 pm US THYROID COMPARISON: None TECHNIQUE: This report is based on interpretation of permanently recorded ultrasound images. HISTORY: ORDERING SYSTEM PROVIDED HISTORY: Reason for Exam: Hypothyroidism, history of goiter, FINDINGS: RIGHT lobe: 4.4 x 1.3 x 1.1 cm LEFT lobe: 4.5 x 0.9 x 1.1 cm Isthmus is 0.2 cm. The gland is diffusely heterogeneous. No increase in vascularity.. Estimated total number of nodules greater than or equal to 1 cm: 0 There are multiple subcentimeter thyroid nodules which are too small for ACR TIRADS characterization never are statistically benign findings requiring no follow-up imaging. The largest of these is a 7 x 6 x 3 mm isoechoic solid nodule in the anterior mid medial right lobe. IMPRESSION: The thyroid is smaller than usual which is probably in response to long-term medication. It is diffusely heterogeneous probably reflection of previous thyroiditis. There is no suspicious thyroid nodule by ACR TIRADS criteria that requires follow-up imaging. ACR TI-RADS 2017 Recommendations: TR1(0 points) : No FNA or follow up TR2 (2 points) : No FNA or follow up TR3 (3 points) : FNA if >/= 2.5 cm, follow up if 1.5 - 2.4 cm in 1, 3, and 5 years TR4 (4-6 points) : FNA if >/= 1.5 cm, follow up if 1.0 - 1.4 cm in 1, 2, 3, and 5 years TR5 (>/= 7 points) : FNA if >/= 1.0 cm, follow up if 0.5 - 0.9 cm every year for 5 years *ACR TI-RADS recommends that no more than two nodules with the highest ACR TI-RADS total point should be biopsied and no more than four nodules should be followed. Interpreted by: Diony Iverson MD Preliminary Report By: Diony Iverson MD Electronically signed By Diony Iverson MD Dictated Date: 06/16/2024 4:35:51 PM Prelim Date: 06/16/2024 4:39:55 PM Sign Date: 06/16/2024 4:39:55 PM Ordering Provider: CORNELIO Boswell [facility] FT4on 10-08-2023 Free T4 [Mass/Vol] 0.87 ng/dL Normal 0.76-1.46 [facility] ([place]) Comment on above: Performed By: #### F T4, TSH ####[place] [address] [place], [place] [address] TSHon 10-08-2023 TSH Qn 0.94 m[IU]/L Normal 0.36-3.74 [facility] ([place]) Comment on above: Performed By: #### F T4, TSH ####[address] [place] [place], [place] [address] FT3on 06-30-2023 Free T3 [Mass/Vol] 2.54 pg/mL Normal 2.30-4.00 [facility] ([place]) Comment on above: Performed By: #### F T4, FT3, TSH ####[address] [place] [place], [place] [address] FT4on 06-30-2023 Free T4 [Mass/Vol] 1.14 ng/dL Normal 0.76-1.46 [facility] ([place]) Comment on above: Performed By: #### F T4, FT3, TSH ####[address] [place] [place], [place] [address] TSHon 06-30-2023 TSH Qn 0.08 m[IU]/L Low 0.36-3.74 [facility] ([place]) Comment on above: Performed By: #### F T4, FT3, TSH ####[address] [place] [place], [place] [address] US RENALon 05-25-2023 US RENAL ORIGINAL EXAMINATION: ULTRASOUND OF THE KIDNEYS 05/25/2023 10:41 am COMPARISON: 12/04/2022 HISTORY: ORDERING SYSTEM PROVIDED HISTORY: Reason for Exam: right angiomyolipoma Abnormal ultrasound follow-up, history of cholelithiasis with positive Ruiz sign FINDINGS: The right kidney measures 10.5 cm in length and the left kidney measures 11.7 cm in length. 1.4 x 1.2 x 1.2 cm hyperechoic right upper pole/interpolar region renal angiomyolipoma. 2.2 x 2.2 x 2.0 cm anechoic simple left upper pole renal cyst. Otherwise kidneys demonstrate normal cortical echogenicity. No evidence of hydronephrosis or intrarenal stones. Urinary bladder is incompletely distended, prevoid and postvoid volumes at 95 mL and 4.9 mL. IMPRESSION: Similar right upper pole renal angiomyolipoma. Simple left upper pole renal cyst. Interpreted by: Naun De La Cruz DO Preliminary Report By: Naun De La Cruz DO Electronically signed By Naun De La Cruz DO Dictated Date: 05/25/2023 12:36:26 PM Prelim Date: 05/25/2023 12:56:42 PM Sign Date: 05/25/2023 12:56:42 PM Ordering Provider: SINTIA Boswell [facility] ([place]) FT3on 04-20-2023 Free T3 [Mass/Vol] 2.85 pg/mL Normal 2.30-4.00 [facility] ([place]) Comment on above: Performed By: #### F T3, FT4, TSH #### [place] [place] [address] FT4on 04-20-2023 Free T4 [Mass/Vol] 1.58 ng/dL High 0.76-1.46 [facility] ([place]) Comment on above: Performed By: #### F T3, FT4, TSH #### [address] [address] LABORATORYOrdered By: SYSTEM SYSTEM on 04-20-2023 Free T3 [Mass/Vol] 2.85 pg/mL Invalid Interpretation Code 2.30 - 4.00 pg/mL AO ADM SS Free T4 [Mass/Vol] 1.58 ng/dL Invalid Interpretation Code 0.76 - 1.46 ng/dL AO ADM SS TSH Qn 0.03 m[IU]/L Invalid Interpretation Code 0.36 - 3.74 mcIU/mL AO ADM SS TSHon 04-20-2023 TSH Qn 0.03 m[IU]/L Low 0.36-3.74 [facility] ([place]) Comment on above: Performed By: #### F T3, FT4, TSH #### [address] [address] FT3on 01-22-2023 Free T3 [Mass/Vol] 3.11 pg/mL Normal 2.30-4.00 [facility] ([place]) Comment on above: Performed By: #### F T3, TSH, FT4 ####[address] [place], [place] [address] FT4on 01-22-2023 Free T4 [Mass/Vol] 1.49 ng/dL High 0.76-1.46 [facility] ([place]) Comment on above: Performed By: #### F T3, TSH, FT4 ####[address] [place], [place] [address] TSHon 01-22-2023 TSH Qn m[IU]/L Low 0.36-3.74 [facility] ([place]) Comment on above: Performed By: #### F T3, TSH, FT4 ####[address] [place], [place] [address] Final Surgical Pathology Rep [facility] 01-02-2023 Final Surgical Pathology Report . Pathology Reports Accession: Collected Date/Time: Received Date/Time: Pathologist: [id number] 12/27/2022 12:33 EDT 01/01/2023 11:15 EDT MD NELSON MONTERO Final Surgical Pathology Report DIAGNOSIS: GALLBLADDER, CHOLECYSTECTOMY: - CHRONIC CHOLECYSTITIS WITH CHOLELITHIASIS COMMENT: [facility] - [id number] CLINICAL INFORMATION: Procedure: LAPAROSCOPIC ASSISTED CHOLECYSTECTOMY Preoperative diagnosis: CHOLELITHIASIS Postoperative diagnosis: SAME SPECIMEN: A GALLBLADDER GROSS DESCRIPTION: A. Received in formalin, labeled with the patients name, Case #[id number], and gallbladder Dimensions-10.5 x 3.5 x 3.2 cm Cystic duct/pericystic duct lymph node-patent, no lymph node Serosal surface-Green, smooth Luminal contents-dark green liquid bile and multiple green-black multifaceted calculi ranging from 0.7 to 1.3 cm with a aggregate measurement of 6.5 x 5 x 1.2 cm. Mucosal surface-Green stained, velvety Wall thickness-0.2 -0.3 cm RS- 1 Dictated by TRISTIAN HALL MICROSCOPIC DESCRIPTION: The microscopic examination is performed, except in the case of Gross Only. Electronically Signed by Pathology Report verified by [facility] NELSON MONTERO MD Sign out Date: 01/02/2023 13:58 Performing Lab: [facility], [address] [place] [address] Pathology Dept Normal [facility] ([place]) .Auto Diffon 12-25-2022 Basophil, Absolute 0.1 10 3/mcL Normal 0.0-0.2 [facility] ([place]) Comment on above: Performed By: #### A DIFF, GFR, ANEU, CBC, CMP ####[address] [place], [place] [address] Basophils/100 WBC (Bld) 1.3 % Normal 0.0-2.5 [facility] ([place]) Comment on above: Performed By: #### A DIFF, GFR, ANEU, CBC, CMP ####[address] [place], [place] [address] Eosinophil, Absolute 0.3 10 3/mcL Normal 0.0-0.4 [facility] ([place]) Comment on above: Performed By: #### A DIFF, GFR, ANEU, CBC, CMP ####[address] [place], [place] [address] Eosinophils/100 WBC (Bld) 3.7 % Normal 0.0-7.0 [facility] ([place]) Comment on above: Performed By: #### A DIFF, GFR, ANEU, CBC, CMP ####Sharyn [address], [place] [address] Lymphocyte, Absolute 2.1 10 3/mcL Normal 0.8-3.9 [facility] ([place]) Comment on above: Performed By: #### A DIFF, GFR, ANEU, CBC, CMP ####Sharyn [address], [place] [address] Lymphocytes/100 WBC (Bld) 30.4 % Normal 10.0-50.0 [facility] ([place]) Comment on above: Performed By: #### A DIFF, GFR, ANEU, CBC, CMP ####Sharyn [address], [place] [address] Monocyte, Absolute 0.6 10 3/mcL Normal 0.2-1.0 [facility] ([place]) Comment on above: Performed By: #### A DIFF, GFR, ANEU, CBC, CMP ####Sharyn [address], [place] [address] Monocytes/100 WBC (Bld) 9.5 % Normal 1.7-13.0 [facility] ([place]) Comment on above: Performed By: #### A DIFF, GFR, ANEU, CBC, CMP ####Sharyn [address], [place] [address] Neutrophils/100 WBC (Bld) 55.1 % Normal 37.0-80.0 [facility] ([place]) Comment on above: Performed By: #### A DIFF, GFR, ANEU, CBC, CMP ####Sharyn [address] [place], [place] [address] .GFRon 12-25-2022 GFR 102 ml/min/1.73sqm Normal [facility] ([place]) Comment on above: Result Comment: GFR Population mean for , Non- Americans Ages 20-29 = 116 mL/min/1.73 sq.m. Ages 30-39 = 107 mL/min/1.73 sq.m. Ages 40-49 = 99 mL/min/1.73 sq.m. Ages 50-59 = 93 mL/min/1.73 sq.m. Ages 60-69 = 85 mL/min/1.73 sq.m. Ages 70+ = 75 mL/min/1.73 sq.m. Chronic Kidney Disease: Less than 60 mL/min/1.73 square meters End Stage Renal Disease: Less than 15 mL/min/1.73 square meters Performed By: #### A DIFF, GFR, ANEU, CBC, CMP ####Sharyn [address] [place], [place] [address] GFR Non- 84 ml/min/1.73sqm Normal [facility] ([place]) Comment on above: Result Comment: GFR Population mean for , Non- Americans Ages 20-29 = 116 mL/min/1.73 sq.m. Ages 30-39 = 107 mL/min/1.73 sq.m. Ages 40-49 = 99 mL/min/1.73 sq.m. Ages 50-59 = 93 mL/min/1.73 sq.m. Ages 60-69 = 85 mL/min/1.73 sq.m. Ages 70+ = 75 mL/min/1.73 sq.m. Chronic Kidney Disease: Less than 60 mL/min/1.73 square meters End Stage Renal Disease: Less than 15 mL/min/1.73 square meters Performed By: #### A DIFF, GFR, ANEU, CBC, CMP ####Sharyn [address] [place], [place] [address] .NEUABSon 12-25-2022 Neutrophil, Absolute 3.8 10 3/mcL Normal 2.9-6.2 [facility] ([place]) Comment on above: Performed By: #### A DIFF, GFR, ANEU, CBC, CMP ####Shay[address] [place], [place] [address] CBCon 12-25-2022 Erythrocyte distribution width (RBC) [Ratio] 13.1 % Normal 11.5-14.5 [facility] ([place]) Comment on above: Performed By: #### A DIFF, GFR, ANEU, CBC, CMP ####Sharyn [address] [place] [address] Hematocrit (Bld) [Volume fraction] 41.6 % Normal 37.0-47.0 [facility] ([place]) Comment on above: Performed By: #### A DIFF, GFR, ANEU, CBC, CMP ####Sharyn [address] [place], [place] [address] Hgb 14.4 G/dL Normal 12.0-16.0 [facility] ([place]) Comment on above: Performed By: #### A DIFF, GFR, ANEU, CBC, CMP ####Sharyn [address] [place] [id number] MCH (RBC) [Entitic mass] 30.8 pg Normal 27.0-31.2 [facility] ([place]) Comment on above: Performed By: #### A DIFF, GFR, ANEU, CBC, CMP ####Sharyn [address] [place] [id number] MCHC 34.5 G/dL Normal 33.0-37.0 [facility] ([place]) Comment on above: Performed By: #### A DIFF, GFR, ANEU, CBC, CMP ####[address]aryn[address] [address] MCV (RBC) [Entitic vol] 89.1 fL Normal 80.0-94.0 [facility] ([place]) Comment on above: Performed By: #### A DIFF, GFR, ANEU, CBC, CMP ####Sharyn [address] [place], [place] [address] Platelet 239 10 3/mcL Normal 130-400 [facility] ([place]) Comment on above: Performed By: #### A DIFF, GFR, ANEU, CBC, CMP ####Sharyn [address] [place], [place] [address] Platelet mean volume (Bld) [Entitic vol] 7.7 fL Normal 7.4-10.4 [facility] ([place]) Comment on above: Performed By: #### A DIFF, GFR, ANEU, CBC, CMP ####Sharyn [address] [place], [place] [address] RBC 4.67 10 6/mcL Normal 4.20-5.40 [facility] ([place]) Comment on above: Performed By: #### A DIFF, GFR, ANEU, CBC, CMP ####Sharyn [address] [place], [place] [address] WBC 6.8 10 3/mcL Normal 4.6-10.8 [facility] ([place]) Comment on above: Performed By: #### A DIFF, GFR, ANEU, CBC, CMP ####Sharyn [address] [place], [place] [address] CMPon 12-25-2022 Albumin Level 3.7 G/dL Normal 3.4-4.8 [facility] ([place]) Comment on above: Performed By: #### A DIFF, GFR, ANEU, CBC, CMP ####Sharyn [address] [place], [place] [address] Albumin/Globulin [Mass ratio] 1.2 {ratio} Normal 1.1-2.5 [facility] ([place]) Comment on above: Performed By: #### A DIFF, GFR, ANEU, CBC, CMP ####Sharyn [address] [place], [place] [address] ALP [Catalytic activity/Vol] 157 U/L High 40-135 [facility] ([place]) Comment on above: Performed By: #### A DIFF, GFR, ANEU, CBC, CMP ####Sharyn [address] [place], [place] [address] ALT [Catalytic activity/Vol] 24 U/L Normal 14-59 [facility] ([place]) Comment on above: Performed By: #### A DIFF, GFR, ANEU, CBC, CMP ####Sharyn [address] [place], [place] [address] AST [Catalytic activity/Vol] 27 U/L Normal 10-40 [facility] ([place]) Comment on above: Performed By: #### A DIFF, GFR, ANEU, CBC, CMP ####Sharyn [address] [place], [place] [address] Bili Total 0.6 mg/dL Normal 0.2-1.0 [facility] ([place]) Comment on above: Result Comment: Use of this assay is not recommended for patients undergoing treatment with eltrombopag due to the potential for falsely elevated results. Performed By: #### A DIFF, GFR, ANEU, CBC, CMP ####Sh[address] [place], [place] [address] BUN/Creatinine Ratio 23 ratio Normal 7-27 [facility] ([place]) Comment on above: Performed By: #### A DIFF, GFR, ANEU, CBC, CMP ####Sharyn [address] [place], [place] [address] Calcium [Mass/Vol] 8.5 mg/dL Normal 8.4-10.2 [facility] ([place]) Comment on above: Performed By: #### A DIFF, GFR, ANEU, CBC, CMP ####Sharyn [address] [place], [place] [address] Chloride [Moles/Vol] 104 mmol/L Normal 98-107 [facility] ([place]) Comment on above: Performed By: #### A DIFF, GFR, ANEU, CBC, CMP ####Sharyn [address] [place], [place] [address] CO2 [Moles/Vol] 30 mmol/L Normal 23-31 [facility] ([place]) Comment on above: Performed By: #### A DIFF, GFR, ANEU, CBC, CMP ####Sharyn [address] [place], [place] [address] Creatinine [Mass/Vol] 0.71 mg/dL Normal 0.55-1.02 [facility] ([place]) Comment on above: Performed By: #### A DIFF, GFR, ANEU, CBC, CMP ####Sharyn [address] [place], [place] [address] Electrolyte Balance 7.0 mEq/L Normal 4.0-15.0 [facility] ([place]) Comment on above: Performed By: #### A DIFF, GFR, ANEU, CBC, CMP ####Sahryn [address] [place], [place] [address] Globulin 3.2 G/dL Normal [facility] ([place]) Comment on above: Performed By: #### A DIFF, GFR, ANEU, CBC, CMP ####Sharyn [address] [place], [place] [address] Glucose [Mass/Vol] 104 mg/dL Normal 80-115 [facility] ([place]) Comment on above: Performed By: #### A DIFF, GFR, ANEU, CBC, CMP ####Sharyn [address] [place], [place] [address] Potassium [Moles/Vol] 3.8 mmol/L Normal 3.5-5.1 [facility] ([place]) Comment on above: Performed By: #### A DIFF, GFR, ANEU, CBC, CMP ####Sharyn [address] [place], [place] [address] Sodium [Moles/Vol] 141 mmol/L Normal 136-145 [facility] ([place]) Comment on above: Performed By: #### A DIFF, GFR, ANEU, CBC, CMP ####Sharyn [address] [place], [place] [address] Total Protein 6.9 G/dL Normal 6.4-8.2 [facility] ([place]) Comment on above: Performed By: #### A DIFF, GFR, ANEU, CBC, CMP ####Sharyn [address] [place], [place] [address] Urea nitrogen [Mass/Vol] 16 mg/dL Normal 7-18 [facility] ([place]) Comment on above: Performed By: #### A DIFF, GFR, ANEU, CBC, CMP ####Sharyn [address] [place], [place] [address] LABORATORYOrdered By: SYSTEM SYSTEM on 12-25-2022 Albumin BCP dye [Mass/Vol] 3.7 G/dL Invalid Interpretation Code 3.4 - 4.8 G/dL AO ADM SS Albumin/Globulin [Mass ratio] 1.2 {ratio} Invalid Interpretation Code 1.1 - 2.5 ratio AO ADM SS ALP [Catalytic activity/Vol] 157 U/L Invalid Interpretation Code 40 - 135 U/L AO ADM SS ALT With P-5'-P [Catalytic activity/Vol] 24 U/L Invalid Interpretation Code 14 - 59 U/L AO ADM SS AST With P-5'-P [Catalytic activity/Vol] 27 U/L Invalid Interpretation Code 10 - 40 U/L AO ADM SS Bilirubin [Mass/Vol] 0.6 mg/dL Invalid Interpretation Code 0.2 - 1.0 mg/dL AO ADM SS Calcium [Mass/Vol] 8.5 mg/dL Invalid Interpretation Code 8.4 - 10.2 mg/dL AO ADM SS Chloride [Moles/Vol] 104 mmol/L Invalid Interpretation Code 98 - 107 mmol/L AO ADM SS CO2 [Moles/Vol] 30 mmol/L Invalid Interpretation Code 23 - 31 mmol/L AO ADM SS Creatinine [Mass/Vol] 0.71 mg/dL Invalid Interpretation Code 0.55 - 1.02 mg/dL AO ADM SS Electrolyte Balance 7.0 mEq/L Invalid Interpretation Code 4.0 - 15.0 mEq/L AO ADM SS GFR 102 ml/min/1.73sqm Invalid Interpretation Code AO Chemistry S GFR Non- 84 ml/min/1.73sqm Invalid Interpretation Code AO Chemistry S Globulin 3.2 G/dL Invalid Interpretation Code AO ADM SS Glucose [Mass/Vol] 104 mg/dL Invalid Interpretation Code 80 - 115 mg/dL AO ADM SS Potassium [Moles/Vol] 3.8 mmol/L Invalid Interpretation Code 3.5 - 5.1 mmol/L AO ADM SS Protein [Mass/Vol] 6.9 G/dL Invalid Interpretation Code 6.4 - 8.2 G/dL AO ADM SS Sodium [Moles/Vol] 141 mmol/L Invalid Interpretation Code 136 - 145 mmol/L AO ADM SS Urea nitrogen [Mass/Vol] 16 mg/dL Invalid Interpretation Code 7 - 18 mg/dL AO ADM SS Urea nitrogen/Creatinine [Mass ratio] 23 ratio Invalid Interpretation Code 7 - 27 ratio AO ADM SS LABORATORYOrdered By: Romeo Gomes on 12-25-2022 Basophil, Absolute 0.1 103/mcL Invalid Interpretation Code 0.0 - 0.2 10^3/mcL AO Workflow SS Basophils/100 WBC (Bld) 1.3 % Invalid Interpretation Code 0.0 - 2.5 % AO Workflow SS Eosinophil, Absolute 0.3 103/mcL Invalid Interpretation Code 0.0 - 0.4 10^3/mcL AO Workflow SS Eosinophils/100 WBC (Bld) 3.7 % Invalid Interpretation Code 0.0 - 7.0 % AO Workflow SS Erythrocyte distribution width (RBC) [Ratio] 13.1 % Invalid Interpretation Code 11.5 - 14.5 % AO Workflow SS Hematocrit (Bld) [Volume fraction] 41.6 % Invalid Interpretation Code 37.0 - 47.0 % AO Workflow SS Hemoglobin (Bld) [Mass/Vol] 14.4 G/dL Invalid Interpretation Code 12.0 - 16.0 G/dL AO Workflow SS Lymphocyte, Absolute 2.1 103/mcL Invalid Interpretation Code 0.8 - 3.9 10^3/mcL AO Workflow SS Lymphocytes/100 WBC (Bld) 30.4 % Invalid Interpretation Code 10.0 - 50.0 % AO Workflow SS MCH (RBC) [Entitic mass] 30.8 pg Invalid Interpretation Code 27.0 - 31.2 pg AO Workflow SS MCHC 34.5 G/dL Invalid Interpretation Code 33.0 - 37.0 G/dL AO Workflow SS MCV (RBC) [Entitic vol] 89.1 fL Invalid Interpretation Code 80.0 - 94.0 fL AO Workflow SS Monocyte, Absolute 0.6 103/mcL Invalid Interpretation Code 0.2 - 1.0 10^3/mcL AO Workflow SS Monocytes/100 WBC (Bld) 9.5 % Invalid Interpretation Code 1.7 - 13.0 % AO Workflow SS Neutrophil, Absolute 3.8 103/mcL Invalid Interpretation Code 2.9 - 6.2 10^3/mcL AO Workflow SS Neutrophils/100 WBC (Bld) 55.1 % Invalid Interpretation Code 37.0 - 80.0 % AO Workflow SS Platelet mean volume (Bld) [Entitic vol] 7.7 fL Invalid Interpretation Code 7.4 - 10.4 fL AO Workflow SS Platelets (Bld) [#/Vol] 239 103/mcL Invalid Interpretation Code 130 - 400 10^3/mcL AO Workflow SS RBC (Bld) [#/Vol] 4.67 106/mcL Invalid Interpretation Code 4.20 - 5.40 10^6/mcL AO Workflow SS WBC (Bld) [#/Vol] 6.8 103/mcL Invalid Interpretation Code 4.6 - 10.8 10^3/mcL AO Workflow SS US ABDOMEN LIMITEDon 023 US ABDOMEN LIMITED ORIGINAL EXAMINATION: LIMITED ABDOMINAL ULTRASOUND12/04/2022 8:23 am TECHNIQUE: Ultrasound images were obtained of the pancreas, IVC, aorta, liver, gallbladder, and right kidney. COMPARISON: None HISTORY: ORDERING SYSTEM PROVIDED HISTORY: Reason for Exam: RUQ pain after greasy foodswith nausea and vomiting for 6 months FINDINGS: LIVER: The liver measures 17.4 cm. Normal contour and echotexture. No hepatic mass is identified. ASCITES: None. GALLBLADDER/BILARY: Positive sonographic Ruiz's sign. The gallbladder is adequately distended and demonstrates no wall thickening. There are layering stones identified within the gallbladder with posterior acoustic shadowing. No intrahepatic biliary ductal dilatation. The common duct measures 4.3 mm. PANCREAS: The visualized portions of the pancreas are normal in size and echogenicity. RIGHT KIDNEY: The right kidney shows no pelvocaliectasis. There is a 1.6 x 1.9 x 1.8 hyperechoic lesion within the right renal cortex which likely represents an angiomyolipoma. VASCULATURE: The visualized aorta and IVC are not dilated. IMPRESSION: Cholelithiasis and a positive sonographic Ruiz's sign, suggestive of cholecystitis. Right renal angiomyolipoma. I have personally reviewed the images of this examination and agree with the resident's findings and interpretations. Interpreted by: Delfino Wolf MD Preliminary Report By: Craig Rodriguez Electronically signed By Delfino Wolf MD Dictated Date: 12/04/2022 2:41:18 PM Prelim Date: 12/04/2022 3:23:41 PM Sign Date: 12/04/2022 3:23:41 PM Ordering Provider: SINTIA MARION Normal [facility] ([place]) .GFRon 11-15-2022 GFR 109 ml/min/1.73sqm Normal [facility] ([place]) Comment on above: Result Comment: GFR Population mean for , Non- Americans Ages 20-29 = 116 mL/min/1.73 sq.m. Ages 30-39 = 107 mL/min/1.73 sq.m. Ages 40-49 = 99 mL/min/1.73 sq.m. Ages 50-59 = 93 mL/min/1.73 sq.m. Ages 60-69 = 85 mL/min/1.73 sq.m. Ages 70+ = 75 mL/min/1.73 sq.m. Chronic Kidney Disease: Less than 60 mL/min/1.73 square meters End Stage Renal Disease: Less than 15 mL/min/1.73 square meters Performed By: #### G FR, LIPID, TSH, CMP #### [address] [address] GFR Non- 90 ml/min/1.73sqm Normal [facility] ([place]) Comment on above: Result Comment: GFR Population mean for , Non- Americans Ages 20-29 = 116 mL/min/1.73 sq.m. Ages 30-39 = 107 mL/min/1.73 sq.m. Ages 40-49 = 99 mL/min/1.73 sq.m. Ages 50-59 = 93 mL/min/1.73 sq.m. Ages 60-69 = 85 mL/min/1.73 sq.m. Ages 70+ = 75 mL/min/1.73 sq.m. Chronic Kidney Disease: Less than 60 mL/min/1.73 square meters End Stage Renal Disease: Less than 15 mL/min/1.73 square meters Performed By: #### G FR, LIPID, TSH, CMP #### Sharyn [address] [address] CMPon 11-15-2022 Albumin Level 4.3 G/dL Normal 3.4-4.8 [facility] ([place]) Comment on above: Performed By: #### G FR, LIPID, TSH, CMP #### [address] [address] Albumin/Globulin [Mass ratio] 1.3 {ratio} Normal 1.1-2.5 [facility] ([place]) Comment on above: Performed By: #### G FR, LIPID, TSH, CMP #### [address] [address] ALP [Catalytic activity/Vol] 168 U/L High 40-135 [facility] ([place]) Comment on above: Performed By: #### G FR, LIPID, TSH, CMP #### [address] [address] ALT [Catalytic activity/Vol] 47 U/L Normal 14-59 [facility] ([place]) Comment on above: Performed By: #### G FR, LIPID, TSH, CMP #### [place] [id number] AST [Catalytic activity/Vol] 24 U/L Normal 10-40 [facility] ([place]) Comment on above: Performed By: #### G FR, LIPID, TSH, CMP #### [address] [address] Bili Total 0.8 mg/dL Normal 0.2-1.0 [facility] ([place]) Comment on above: Result Comment: Use of this assay is not recommended for patients undergoing treatment with eltrombopag due to the potential for falsely elevated results. Performed By: #### G FR, LIPID, TSH, CMP #### [address] [address] BUN/Creatinine Ratio 19 ratio Normal 7-27 [facility] ([place]) Comment on above: Performed By: #### G FR, LIPID, TSH, CMP #### [address] [address] Calcium [Mass/Vol] 9.3 mg/dL Normal 8.4-10.2 [facility] ([place]) Comment on above: Performed By: #### G FR, LIPID, TSH, CMP #### [address] [address] Chloride [Moles/Vol] 103 mmol/L Normal 98-107 [facility] ([place]) Comment on above: Performed By: #### G FR, LIPID, TSH, CMP #### [address] [address] CO2 [Moles/Vol] 29 mmol/L Normal 23-31 [facility] ([place] Comment on above: Performed By: #### G FR, LIPID, TSH, CMP #### [address] [address] Creatinine [Mass/Vol] 0.67 mg/dL Normal 0.55-1.02 [facility] ([place]) Comment on above: Performed By: #### G FR, LIPID, TSH, CMP #### [address] [address] Electrolyte Balance 8.0 mEq/L Normal 4.0-15.0 [facility] ([place]) Comment on above: Performed By: #### G FR, LIPID, TSH, CMP #### [address] [address] Globulin 3.2 G/dL Normal [facility] ([place] Comment on above: Performed By: #### G FR, LIPID, TSH, CMP #### [address] [address] Glucose [Mass/Vol] 96 mg/dL Normal 80-115 [facility] ([place] Comment on above: Performed By: #### G FR, LIPID, TSH, CMP #### [address] [address] Potassium [Moles/Vol] 4.6 mmol/L Normal 3.5-5.1 [facility] ([place]) Comment on above: Performed By: #### G FR, LIPID, TSH, CMP #### [address] [address] Sodium [Moles/Vol] 140 mmol/L Normal 136-145 [facility] ([place]) Comment on above: Performed By: #### G FR, LIPID, TSH, CMP #### [facility] [address] [place], [place] [address] Total Protein 7.5 G/dL Normal 6.4-8.2 [facility] ([place]) Comment on above: Performed By: #### G FR, LIPID, TSH, CMP #### Sharyn [address] [place], [place] [address] Urea nitrogen [Mass/Vol] 13 mg/dL Normal 7-18 [facility] ([place]) Comment on above: Performed By: #### G FR, LIPID, TSH, CMP #### Sharyn [address] [place], [place] [address] LABORATORYOrdered By: SYSTEM SYSTEM on 11-15-2022 Albumin BCP dye [Mass/Vol] 4.3 G/dL Invalid Interpretation Code 3.4 - 4.8 G/dL AO ADM SS Albumin/Globulin [Mass ratio] 1.3 {ratio} Invalid Interpretation Code 1.1 - 2.5 ratio AO ADM SS ALP [Catalytic activity/Vol] 168 U/L Invalid Interpretation Code 40 - 135 U/L AO ADM SS ALT With P-5'-P [Catalytic activity/Vol] 47 U/L Invalid Interpretation Code 14 - 59 U/L AO ADM SS AST With P-5'-P [Catalytic activity/Vol] 24 U/L Invalid Interpretation Code 10 - 40 U/L AO ADM SS Bilirubin [Mass/Vol] 0.8 mg/dL Invalid Interpretation Code 0.2 - 1.0 mg/dL AO ADM SS Calcium [Mass/Vol] 9.3 mg/dL Invalid Interpretation Code 8.4 - 10.2 mg/dL AO ADM SS Chloride [Moles/Vol] 103 mmol/L Invalid Interpretation Code 98 - 107 mmol/L AO ADM SS CO2 [Moles/Vol] 29 mmol/L Invalid Interpretation Code 23 - 31 mmol/L AO ADM SS Creatinine [Mass/Vol] 0.67 mg/dL Invalid Interpretation Code 0.55 - 1.02 mg/dL AO ADM SS Electrolyte Balance 8.0 mEq/L Invalid Interpretation Code 4.0 - 15.0 mEq/L AO ADM SS GFR 109 ml/min/1.73sqm Invalid Interpretation Code AO Chemistry S GFR Non- 90 ml/min/1.73sqm Invalid Interpretation Code AO Chemistry S Globulin 3.2 G/dL Invalid Interpretation Code AO ADM SS Glucose [Mass/Vol] 96 mg/dL Invalid Interpretation Code 80 - 115 mg/dL AO ADM SS Potassium [Moles/Vol] 4.6 mmol/L Invalid Interpretation Code 3.5 - 5.1 mmol/L AO ADM SS Protein [Mass/Vol] 7.5 G/dL Invalid Interpretation Code 6.4 - 8.2 G/dL AO ADM SS Sodium [Moles/Vol] 140 mmol/L Invalid Interpretation Code 136 - 145 mmol/L AO ADM SS TSH mcIU/mL Invalid Interpretation Code 0.36 - 3.74 mcIU/mL AO ADM SS Urea nitrogen [Mass/Vol] 13 mg/dL Invalid Interpretation Code 7 - 18 mg/dL AO ADM SS Urea nitrogen/Creatinine [Mass ratio] 19 ratio Invalid Interpretation Code 7 - 27 ratio AO ADM SS LABORATORYOrdered By: Kamila Araya on 11-15-2022 Cholesterol [Mass/Vol] 218 mg/dL Invalid Interpretation Code 0 - 200 mg/dL AO ADM SS Cholesterol in HDL [Mass/Vol] 53 mg/dL Invalid Interpretation Code 40 - 60 mg/dL AO ADM SS Cholesterol in LDL [Mass/Vol] 149 mg/dL Invalid Interpretation Code 0 - 130 mg/dL AO ADM SS Triglyceride [Mass/Vol] 82 mg/dL Invalid Interpretation Code 0 - 150 mg/dL AO ADM SS LIPIDon 11-15-2022 Cholesterol [Mass/Vol] 218 mg/dL High 0-200 [facility] ([place]) Comment on above: Result Comment: Chol esterol Reference Interval: Less than 200 Desirable 200-239 Borderline high risk 240 and above High risk Performed By: #### G FR, LIPID, TSH, CMP #### [address] [address] Cholesterol in HDL [Mass/Vol] 53 mg/dL Normal 40-60 [facility] ([place]) Comment on above: Performed By: #### G FR, LIPID, TSH, CMP #### [address] [address] Cholesterol in LDL [Mass/Vol] 149 mg/dL High 0-130 [facility] ([place]) Comment on above: Performed By: #### G FR, LIPID, TSH, CMP #### [address] [address] Triglyceride [Mass/Vol] 82 mg/dL Normal 0-150 [facility] ([place]) Comment on above: Result Comment: Trig lyceride Reference Interval: Less than 150 Normal 150-199 Borderline high risk 200-499 High risk 500 or higher Very high risk Performed By: #### G FR, LIPID, TSH, CMP #### [address] [address] TSHon 11-15-2022 TSH Qn m[IU]/L Low 0.36-3.74 [facility] ([place]) Comment on above: Performed By: #### G FR, LIPID, TSH, CMP #### [address] [address] CNOVon 02-27-2022 CNOV Office Visit ([facility] ) CARA HOOD ([id number]) 1960 F Date Time Provider Department 02/27/22 6:30 PM OLIVIER MALIK [facility] During your visit today, we recorded the following information about you: Temperature Pulse Respiration Blood pressure 98.1 degrees 82/minute 20/minute 122/90 Weight 122.5 kg Olivier Malik MD 02/27/2022 6:49 PM Signed Patient presents with: Rash: ARIEL legs x8 days HPI: Rash: Location: Both lower legs Duration: 8 days Pruritis: Yes Pain: Some from open areas Change: Swelling and redness is worsening Bleeding/ulceration/blister/pu stule: NO Contacts with rash: No Exposure: Outdoor exposure: Bitten by flies while weeding. Change in medications: No. Recent illness: No. Treatment: Rubbing alcohol, topical benadryl PAST MEDICAL HISTORY Diagnosis Date - Asthma - Asthma due to seasonal allergies - Back pain - DDD (degenerative disc disease), lumbar - Hypothyroidism MEDICATIONS: levothyroxine (SYNTHROID) 150 mcg tablet Take 150 mcg by mouth daily before breakfast. Name brand only albuterol sulfate (PROVENTIL INHALATION) Inhale 1 Inhalation as instructed as needed. ALLERGIES: ALLERGIES Allergen Reactions - Etodolac Hives - Penicillins Hives VITALS: BP 122/90 Pulse 82 Temp 36.7 ?C (98.1 ?F) Resp 20 Wt 122.5 kg (270 lb) SpO2 98% BMI 41.05 kg/m? PHYSICAL EXAM: GEN: pleasant, no acute distress, alert SKIN: 1-4mm flat dry red eschar lesions on bilateral lower legs, worse on posterior portions. Most lesions have 1 to 5cm of erythema/induration around them. ASSESSMENT/PLAN: 1. Contact dermatitis due to plant - ICD9: 692.6, ICD10: L25.5 (primary diagnosis) 2. Bilateral lower leg cellulitis - ICD9: 682.6, ICD10: L03.116, L03.115 Plant dermatitis or insect bites which have secondary infection. - CEPHALEXIN 500 MG CAPSULE and - PREDNISONE 10 MG TABLET taper Olivier Malik MD Referring Provider: SELF [200] Allergies As of Date: 02/27/2022 Noted Allergy Reaction ETODOLAC 05/17/2018 4 - Hives PENICILLINS 05/17/2018 4 - Hives Date Reviewed: 02/27/2022 Reviewed by: Zarina Pradhan MA - Fully Assessed Reason for Visit: Rash [1087] Cmt: ARIEL legs x8 days Primary Visit Diagnosis:Contact dermatitis due to plant [L25.5] Other Visit Diagnosis:Bilateral lower leg cellulitis [L03.116, L03.115] Order(s):cephALEXin (KEFLEX) 500 mg capsuleTake 1 capsule by mouth three times daily for 5 days.Disp: 15 capsuleRfl: 0 predniSONE (DELTASONE) 10 mg tabletTake 5 tablets by mouth once daily for 1 day, THEN 4 tablets once daily for 1 day, THEN 3 tablets once daily for 1 day, THEN 2 tablets once daily for 1 day, THEN 1 tablet once daily for 1 day.Disp: 15 tabletRfl: 0 Prescriptions as of 02/27/2022 - cephALEXin (KEFLEX) 500 mg capsule Take 1 capsule by mouth three times daily for 5 days. - predniSONE (DELTASONE) 10 mg tablet Take 5 tablets by mouth once daily for 1 day, THEN 4 tablets once daily for 1 day, THEN 3 tablets once daily for 1 day, THEN 2 tablets once daily for 1 day, THEN 1 tablet once daily for 1 day. - levothyroxine (SYNTHROID) 150 mcg tablet Take 150 mcg by mouth daily before breakfast. Name brand only - albuterol sulfate (PROVENTIL INHALATION) Inhale 1 Inhalation as instructed as needed. Problem List As Of Date 02/27/2022 Noted Resolved Complex atypical endometrial hyperplasia [N85.0*05/29/2018 Acquired hypothyroidism [E03.9] 06/14/2018 Morbid obesity (HCC) [E66.01] 06/14/2018 Goiter [E04.9] 06/14/2018 Varicose veins of both lower extremities with p*06/14/2018 DVT (deep venous thrombosis) ([facility]) [I82.409] 06/20/2018 Superficial thrombosis of left lower extremity *06/21/2018 Anticoagulation management encounter [Z51.81, Z*06/21/2018 Obesity, Class III, BMI >= 40 [E66.01] 06/27/2018 Prescriptions ordered this encounter Disp Refills Start End CEPHALEXIN 500 MG CAPSULE 15 c* 0 02/27/2022 03/04/2022 Route: ORAL Sig: Take 1 capsule by mouth three times daily for 5 days. PREDNISONE 10 MG TABLET 15 t* 0 02/27/2022 03/04/2022 Route: ORAL Sig: Take 5 tablets by mouth once daily for 1 day, THEN 4 tablets once daily for 1 day, THEN 3 tablets once daily for 1 day, THEN 2 tablets once daily for 1 day, THEN 1 tablet once daily for 1 day. Medications Discontinued During This Encounter Prescriptions - enoxaparin (LOVENOX) 120 mg/0.8 mL injection (Discontinued) Reported on 02/27/2022 - docusate sodium (COLACE) 100 mg capsule (Discontinued) Reported on 02/27/2022 - ibuprofen (MOTRIN) 600 mg tablet (Discontinued) Reported on 02/27/2022 Level of Service: OFFICE/OUTPATIENT [facility] 30-44 MINUTES [[id number]] Encounter Status:Closed by OLIVIER MALIK on 02/27/22 [facility] [place] 07-04-2018 JEDN Telephone ([facility]) ДМИТРИЙ CARA MATHEWS ([id number]) 1960 FDate Time Provider Jsgsnamekg95/11/18 LOLA HILL (RN) GYN During your visit today, we recorded the following information about you:Lola Hill RN, RN 07/04/2018 9:21 AM SignedCalled for post op check LVM awaiting return call.Lola Hill RN, RN 07/04/2018 12:10 PM SignedOctober 2017 11:56 AMPatient called for post op follow up assessment. Reports she is doing well.Pain: Patient rates pain 0 on a scale of 0-10. 0 being no pain and 10 beingworst pain imaginable.Diet: Patient is able tolerate fluids and normal diet.Bowel Movement: Patient is able to pass gas and has had a bowel movement.Voiding: Patient is able to void without difficult..Vaginal Discharge: Denies heavy vaginal bleedingSkin Incision: Denies drainage, redness, or signs of infection.adhesive present:No- dissolved per patientMedication: Denies questions or concerns about medicationPost op restrictions reviewed with patient including- activity- no heavy lifting, on pelvic rest- keep incision clean and dry. Ok to use mild antibacterial soap.- reviewed signs and symptoms to notify office including signs of infection,fever, heavy vaginal bleeding.- she is aware of post op appointment with Dr. Saucedo .Patient verbalized understanding and denies further questions at this time.Understands to call the office with further concerns/questions.Survivorshi p treatment summary initiated: Kaylee Foley As of Date: 07/04/2018 Noted Allergy ReactionETODOLAC 05/17/2018 4 - HivesPENICILLINS 05/17/2018 4 - HivesDate Reviewed: 06/27/2018Reviewed by: Rosanna (Rn) ANA Stuart - Fully AssessedReason for Visit: Post Op Call [[id number]]Prescriptions as of 07/04/2018 Sig: OXYCODONE 5 MG TABLET Take 1 tablet by mouth every * DOCUSATE SODIUM 100 MG CAPSULE Take 1 capsule by mouth twice* IBUPROFEN 600 MG TABLET Take 1 tablet by mouth every * LEVOTHYROXINE 150 MCG TABLET Take 150 mcg by mouth daily b* ENOXAPARIN SODIUM 120 MG/0.8 * Inject 0.8 mL subcutaneously * PROVENTIL INHALATION Inhale 1 Inhalation as instru*Problem List As Of Date 07/04/2018 Noted Resolved Complex atypical endometrial hyperplasia [N85.0*INVALID FOR* More... Acquired hypothyroidism [E03.9] INVALID FOR* Morbid obesity (HCC) [E66.01] INVALID FOR* Goiter [E04.9] INVALID FOR* Varicose veins of both lower extremities with p*INVALID FOR* DVT (deep venous thrombosis) (HCC) [I82.409] INVALID FOR* More... Superficial thrombosis of left lower extremity *INVALID FOR* Anticoagulation management encounter [Z51.81, Z*INVALID FOR* Obesity, Class III, BMI >= 40 [E66.01] INVALID FOR* Status:Closed by LOLA HILL on 07/04/18 [facility] ANES Russell 06-27-2018 ANES POST HNO ID: [id number] thor: Omar Salcidorvice: AnesthesiologyAuthor Type: AnesthesiologistType: Anesthesia PostOpFiled: 06/27/2018 10:23 AMNote Text:POST ANESTHESIA EVALUATION NOTESERVICE DATE: 06/27/2018SERVICE TIME: 10:23 AMDOB: 1960Vitals: [phone] 015BP: 136/86 121/75 126/77 126/84Pulse: 70 72 (!) 54 (!) 55Resp: 20 16 16 16Temp: 37.1 ?C (98.8 ?F) 36 ?C (96.8 ?F)TempSrc: Temporal Artery Temporal ArterySpO2: 100% 100% 100% 95%Validated Vital Signs: YesNo apparent anesthetic complications. The patient is appropriatelyhydrated with stable respiratory and cardiovascular status. Patient hassafe and adequate airway control. The patient has appropriate pain reliefand no significant post operative nausea or vomiting. The patient hasachieved baseline mental status.Intra-Operative Events: No Significant Anesthesia EventsFurther assessment by Anesthesia Service: NoneOther Remarks:SIGNATURE: Omar Kelley MD PATIENT NAME: Cara HoodDATE: June 27, 2018 : 10:23 AM PAGER/CONTACT #: [phone] [facility] ANES PREOPon 06-27-2018 ANES PREOP HNO ID: [id number] thor: Omar Salcidorvice: AnesthesiologyAuthor Type: AnesthesiologistType: Anesthesia PreOpFiled: 06/27/2018 7:30 AMNote Text:REGIONAL ANESTHESIOLOGY DAY OF SURGERY NOTEPATIENT NAME: Cara HoodMRN: [id number]: 2Procedure(s) (LRB):LAPAROSCOPIC HYSTERECTOMY TOTAL FOR UTERUS 250 G OR LESS W/REMOVAL TUBE(S)AND/OR OVARY(S) (Bilateral)Surgeon(s):Gus SaucedoEstimated body mass index is 41.81 kg/m? as calculated from the following: Height as of 06/24/18: 172.7 cm (5' 8). Weight as of 06/24/18: 124.7 kg (275 lb).ASA Class: 3Adequate NPO status: YesAllergies:ALLERGIESAllergen Reactions- Etodolac Hives- Penicillins HivesAirway Assessment: MP 2; Neck ROM: Full ROM without neurologic symptoms;Airway Evaluation: No significant abnormalitiesDentition: Complete lower denturesSymptoms of Sleep Apnea: Probable but not formally diagnosedMost recent lab results:Hemoglobin 14.5 06/14/2018Hematocrit 44.4 06/14/2018Potassium 4.4 06/14/2018Platelet Count 238 06/14/2018Creatinine 0.94 06/14/2018EKG:normal EKG, normal sinus rhythmVitals: 623BP: 136/86Pulse: 70Resp: 20Temp: 37.1 ?C (98.8 ?F)TempSrc: Temporal ArterySpO2: 100%Previous Anesthesia: No history of adverse event Family history ofanesthetic problems: NoneAdditional Physical Exam:Lungs: Lungs clear to auscultation. Good diaphragmatic excursion.Cardiac: Normal S1 and S2; no rubs, no murmurs and no gallopsAdditional pertinent findings: N/AOther Medical Problems/ Important Considerations:Denies chest pain and SOB with exertion.Chronic Beta Amarilys medication administered within 24 hours: N/AAnesthetic risks, benefits, alternatives, personnel and consent discussed:YesPatient agrees to proceed: YesBlood Products: Will accept Blood/Blood ProductsAnesthetic Plan: General ETT; Standard ASA MonitorsPain Management Plan: Parenteral or OralEPIC Chart ReviewACTIVE PROBLEM LISTComplex Atypical Endometrial HyperplasiaAcquired HypothyroidismMorbid Obesity (Hcc)GoiterVaricose Veins of Both Lower Extremities With PainDvt (Deep Venous Thrombosis) (Hcc)Superficial Thrombosis of Left Lower ExtremityAnticoagulation Management EncounterObesity, Class III, BMI >= 40PAST MEDICAL HISTORYDiagnosis Date- Asthma- Asthma due to seasonal allergies- Back pain- DDD (degenerative disc disease), lumbar- HypothyroidismPAST SURGICAL HISTORYProcedure Laterality Date- CATH PLACEMENT - IVC FILTER 06/26/2018 CLOTS LLE DUE TO HORMONE REPLACEMENT TO STOP UTERINE BLEEDING- SECTION HX 2002- FOOT SURGERY HX Bilateral 2013 hardware placment/ bunnion- KNEE SURGERY HX Right 2014 meniscus repairFAMILY HISTORYProblem Relation Age of Onset- Blood Clots Mother phlebitis per pateint and DVT- was on Coumadin- other (throat cancer) Father- other (throat cancer) Maternal Grandmother blood clots- other (lung cancer) Maternal GrandfatherSocial History:Social HistorySubstance Use Topics- Smoking status: Never Smoker- Smokeless tobacco: Never Used- Alcohol use NoNo current facility-administered medications on file prior to encounter.No current outpatient prescriptions on file prior to encounter.Inpatient medications reviewed in [facility] Exam Prep Platform.I have interviewed and examined the patient. I have reviewed the medicalrecord and/or the pre-anesthesia evaluation, pertinent labs, and testresults.Significant changes in the patient's condition since the History andPhysical, not otherwise documented in primary service progress notes: NoThis contains updated information obtained within 48 hours ofSurgery/Procedure.SIGNATURE: Omar Kelley MD PATIENT NAME: Cara HoodDATE: June 27, 2018 : 7:29 AM PAGER/CONTACT #: [facility] HISTORY PHYSICALon 8 HISTORY PHYSICAL HNO ID: [id number] thor: Dacia Costaervice: GynecologyAuthor Type: ResidentType: HANDPFiled: 06/27/2018 7:17 AMNote Text:UPDATED HISTORY AND PHYSICAL EXAMINATIONSERVICE DATE: 06/27/2018SERVICE TIME: 7:15 AMPHYSICAL EXAM MUST BE COMPLETED ON ADMISSIONThe History and Physical (completed in the past 30 days) has been reviewedand the patient has been examined. The contents accurately reflect thepatient's condition with the following additions or revisions since theHANDP was completed.Examination indicates the following changes were noted: New DVT diagnosis,now on therapeutic Lovenox. Last does of Lovenox was 10/3 AM. S/p IVCfilter placement 06/24.This HANDP can be found in the Electronic Medical Record dated 06/14/18.SIGNATURE: Dacia Paris MD PATIENT NAME: Cara DominguezTE: June 27, 2018 : 7:15 AM PAGER: [facility] NURSING PROGon 06-27-2018 Protein mass conc HNO ID: [id number] thor: Annalisa QuesadaRn) ROSI Brennerervice: NursingAuthor Type: Registered NurseType: Nursing Progress NoteFiled: 06/27/2018 12:41 PMNote Text: 1200 pt had PONV on admission to phase 2 at 1121. see mar for meds given.1230 pt feeling little better. per discharge order needs to urinate beforedischarge. pt drinking fluids does not feel readu to urinate as yet. [facility] OPERATIVE NOon 06-27-2018 OPERATIVE NO HNO ID: [id number] thor: Gus SanchezdiService: Gynecology OncologyAuthor Type: PhysicianType: Operative ReportFiled: 06/27/2018 9:54 AMNote Text:OPERATIVE/PROCEDURE REPORTLOG ID: [id number]/PROCEDURE DATE: 06/27/2018INCISION/PROCEDURE START TIME: 8:15 AMINCISION CLOSE/PROCEDURE END TIME: 9:27 AMSURGEON(S)/PROCEDURALIST(S) AND [employer]ATING SUPERVISOR(S):Surgeon(s) and Role: * Gus Saucedo - Primary * Dacia (Randy) Raina - Resident - Assisting * Elyse Denise (Alexander) Luz - Resident - AssistingNo Additional StaffSURGERY/PROCEDURE(S):[place] roscopic total hysterectomy, bilateral salpingo-oophorectomy, andcystoscopy?Anesthesia: General??Operative Findings:?Normal uterus, tubes and ovaries, normal pelvic and abdominal surveys.Frozen c/w grade 1 cancer, superficial invasion. Normal cystoscopy?Operative Procedure:The patient was taken to the operating room and was placed on theoperating room table, general anesthesia with endotracheal intubation wasinitiated, and oral gastric tube was placed, she was then placed in dorsallithotomy position, attention was made to avoid any pressure injuries, Ievaluated the ankle and hip joints bilaterally after positioning the lowerextremity, there was adequate mobility of the joints and no evidence ofpressure on the femoral or common peroneal nerves. She was then preppedand draped in a normal sterile fashion and a gabriel catheter was inserted.Exam under anesthesia was performed which showed normal uterus and cervixand no pelvic mass was felt. A uterine manipulator was placed . We thenproceeded with placement of trochars. The first trocar was placed in theleft upper quadrant region and it was 5mm. Intraperitoneal cavity wasinitially insufflated with CO2 gas using the Veress needle. Then thetrocar was inserted into the peritoneal cavity. Subsequently we placed two5 mm trochars one at each lower quadrants and another one insupra-umbilical region. Intraperitoneal cavity was inspected carefully,and no evidence of extra-uterine disease disease was noted. Then The roundligament was grasped cauterized and cut, the peritoneum lateral to theinfundibulopelvic ligament was then incised cephalad. The ureter wasidentified in the retroperitoneal space, Similar procedure was done on theopposite side. Then a window was made in the peritoneum below the leftgonadal vessels and the gonadal vessels were ligated and transected.Similar procedure performed on the opposite side. Then the posteriorperitoneum was incised down wolff to the level of uterosacral ligament.Bladder flap was developed sharply, the uterine vessels were skeletonized,ligasure device was used to secure cauterize and transect the uterinevessels at the level of cervico-uterine junction. Then colpotomy wasperformed along the ridge of the v-care colpotomizer, The specimen wasremoved and sent to pathology. The cuff was reapproximated using V-lockintracorporal in a running fashion in 2 layers. Hemostasis was assured,pedicles were inspected.We then performed a cystoscopy, a rigid 70 degree cystoscope was insertedinto the urethra and bladder was distended with saline, efflux offluorescein was seen from the ureteral orifices bilaterally, entire cavityof bladder was inspected and appeared intact.Trochars were removed. Skin was reapproximated. At the end of theoperation sponge and needle counts and instrument counts were correct x2.The patient tolerated the procedure well and was transferred to therecovery room after extubation.??Pre-Op/Pre-Proced ure Diagnosis: Endometrial hyperplasia with atypia??Post-Op/Post-Procedure Diagnosis: grade 1 endometrial cancer ?Estimated Blood Loss:?20 mls??Specimens:?uterus/cervix, tubes and ovaries??Implantable Devices:?None??Drains:?None??C omplications: None?PARTICIPATION IN SURGERY/PROCEDURE: I performed the procedure withassistance.?SIGNATURE: Gus Saucedo MD PATIENT NAME: Cara HoodDATE: June 27, 2018 : 9:52 AM PAGER/CONTACT #: [facility] PT EDon 06-27-2018 PT ED HNO ID: [id number] thor: Annalisa (Rn) ROSI Brennerervice: NursingAuthor Type: Registered NurseType: Patient EducationFiled: 06/27/2018 12:24 PMNote Text:PATIENT EDUCATION TOPIC: PROCEDURE / SURGERY: Post-op Teaching: Kellie'kendall post op instructionsPATIENT NAME: Cara HoodMRN: [id number] LOCATION: FV OR POOL/FV OR POOLREADINESS TO LEARNCOGNITIVE ABILITY: Alert and orientedMOTIVATION TO LEARN: InterestedFAMILY SUPPORT: High - Very involved in pt careINSTRUCTION PROVIDED TO: Patient and family memberPATIENT LEARNS BEST BY: Individual InstructionWritten Instruction - Hand-outsVerbal InstructionFACTORS AFFECTING LEARNING: NonePHYSICAL LIMITATIONS AFFECTING LEARNING: NoneLEARNING RESPONSEDIAGNOSIS:PATIENT/FAMI LY RESPONSE: Verbalizes understanding of: post opinstructionsFOLLOW-UP PLAN: with Dr Durant on jul 12Electronically Signed By: Annalisa Brenner RN [facility] PT ED HNO ID: [id number] thor: Norma (Rn) Daisha, RNService: NursingAuthor Type: Registered NurseType: Patient EducationFiled: 06/27/2018 6:39 AMNote Text:PATIENT EDUCATION TOPIC: PROCEDURE / SURGERY: Pre-op Teaching: SurgicalSafety PrinciplesPATIENT NAME: Cara HoodMRN: [id number] LOCATION: FV OR POOL/FV OR POOLREADINESS TO LEARNCOGNITIVE ABILITY: Alert and orientedMOTIVATION TO LEARN: EagerFAMILY SUPPORT: None - Unavailable/disinterestedINSTR UCTION PROVIDED TO: PatientPATIENT LEARNS BEST BY: Verbal InstructionFACTORS AFFECTING LEARNING: NonePHYSICAL LIMITATIONS AFFECTING LEARNING: NoneLEARNING RESPONSEPATIENT/FAMILY RESPONSE: Verbalizes understanding of: [id number]-Yfbr ect action to take to follow pre-operative instructionsMETHOD OF INSTRUCTION: Verbal instructionFOLLOW-UP PLAN: Complete - No need for follow-upINSTRUCTIONAL AIDS USED: NASUPPLEMENTAL MATERIAL PROVIDED TO PATIENT: NoneREFERRAL (RECOMMENDATION): NoneElectronically Signed By: Norma Ashton RN [facility] SURGICAL PATHOLOGYon 018 SURGICAL PATHOLOGY ADDENDUM PRESENT [facility]: [id number] Physician: GUS SAUCEDO MD FINAL DIAGNOSISUterus, cervix, bilateral ovaries and fallopian tubes, hysterectomy andbilateral salpingo-oophorectomy:Endometr ium - Endometrial adenocarcinoma, endometrioid type, FIGO Grade 1with squamous differentiation (see synoptic report).Myometrium - Endometrial adenocarcinoma, endometrioid type, FIGO Grade 1focally involving adenomyosis (see comment).Cervix - Negative for malignancy.Bilateral ovaries - Negative for malignancy.Bilateral fallopian tubes - Negative for malignancy.SMS/abhijit/07/01/18COMM ENTEndometrioid adenocarcinoma focally involves adenomyosis at a superficialdepth in the myometrium (upper 20%). Definite invasion is not seen. Aselected slide of endomyometrium was reviewed in gynecologic pathologyconsensus conference by Drs. Renan Vu and Ruben Leonard with concurrence. Immunohistochemical stains for mismatch repair proteins are pending andwill be reported as an addendum.SYNOPTIC REPORT OF SANTOS PATHOLOGIC FINDINGSUTERUS, CERVIX AND OVARIES: Procedure: Total hysterectomy and bilateral salpingo-oophorectomyTumor Size: Greatest dimension: 4.0 cmHistologic Type: Endometrioid carcinoma with squamous differentiationHistologic Grade: FIGO grade 1Myometrial Invasion: Not identifiedUterine Serosa Involvement: Not identifiedCervical Stromal Involvement: Not identifiedInvolvement of other tissue/organs: Not identifiedPeritoneal Ascitic Fluid: Not performed/unknownMargins: Not applicable: Lymph-Vascular Invasion: Not identifiedRegional Lymph Nodes: No nodes submitted or foundPathologic Stage Classification (pTNM, AJCC 8th ed)TNM Descriptors: Not applicablePrimary Tumor (pT): pT1a (IA): Tumor limited to endometrium or invades less than 1/2 ofthe myometriumRegional Lymph Nodes (pN): pNX: Regional lymph nodes cannot be assessedDistant Metastasis (pM): Not applicable/Not confirmed pathologically in this case Vanesa Lee M.D.(Electronic Signature) SPECIMEN SUBMITTEDA: UTERUS, CERVIX AND OVARIES ADDENDUM Date Ordered: 07/04/2018 Date Reported: 07/04/2018 Immunohistochemistry for mismatch repair proteins in endometrial carcinoma:Results: Mismatch repair proteins are expressed in carcinoma nuclei.Mismatch repair (MMR) status: Proficient Immunohistochemical (IHC) staining patterns of each MMR protein: PMS2 expressed in carcinoma nuclei MLH1 expressed in carcinoma nuclei MSH6 expressed in carcinoma nuclei MSH2 expressed in carcinoma nucleiMMR-IHC was performed on tissue block A4 with appropriate controls.Immunohistochemistry testing is one of the standard tests completed on alluterine/endometrial carcinomas at the [facility]. IHC stains for MMRproteins were performed to assist in screening for HNPCC (Miguel Syndrome).MMR proteins function as heterodimers with the association of MLHI withPMS2 and the association of MSH2 with MSH6. These binding partnershipsstabilize MMR proteins. Immunohistochemical screening for the detection ofMMR proteins is an effective screening option for Miguel syndrome inapproximately 95% of cases. Recent studies demonstrate that the anti-programmed 1 (PD-1) immunecheckpoint inhibitor pembrolizumab's benefit is predicted by the tumor'smismatch repair status. Mismatch repair deficient tumors are moreresponsive to PD-1 blockade than mismatch repair proficient tumors.Pembrolizumab is FDA-approved for the treatment of adult and pediatricpatients with unresectable or metastatic solid tumors that display MMRdeficient by immunohistochemistry or microsatellite instability-high(MSI-H) by PCR assay. The FDA does not distinguish between MMR-IHC andPCR-based assays, as these are considered equivalent and complimentarytests. A two antibody screen effectively identifies mismatch repairdeficient tumors because MMR proteins function as heterodimers with YQY7xctxginlbu with PMS2 and MSH2 associated with MSH6. These bindingpartnerships stabilize PMS2 and MSH6. As clinically indicated, and in the appropriate setting of geneticcounseling with informed patient consent, further molecular genetic testingmay be needed. For more information or questions, please call the [facility] at .Laboratory Developed Test (LDT) Disclaimer:Positive and negative controls stain appropriately. Performancecharacteristics of immunohistochemical, immunofluorescent and chromogenicin-situ hybridization tests have been determined by [facility] Pathology and Laboratory Medicine [place] ([facility]) nick manner consistent with CLIA requirements. One or more of these tests havenot been cleared or approved by the FDA. [facility] is regulated under CLIA asqualified to perform high-complexity testing. These tests are used forclinical purposes. They should not be regarded as investigational or forresearch.Addendum Pathologist: Vanesa Lee M.D.Electronic Signature CLINICAL DATACOMPLEX ATYPICAL ENDOMETRIAL HYPERPLASIA INTRAOPERATIVE CONSULT DIAGNOSISFSA1 - Endometrioid adenocarcinoma, FIGO I, superficially invasive onfrozen section, 24% myoinvasive. (Dr. Pineda)Intraoperative diagnosis performed at [facility], [address] [place], [place] [address]SNGIQ DESCRIPTIONA. Received fresh for frozen section, designated uterus, cervix andovaries is a uterus with attached cervix that weighs 106.5 grams andmeasures 9.5 x 6.0 x 4 cm. The ectocervix is pink-garcia, smooth andglistening, measuring 2.2 cm in greatest dimension. The cervical os isslit-like. The endocervical canal is pink-garcia and granular, measuring 3 cmin greatest dimension. The endometrial cavity measures 5 x 3.5 cm. Theendometrium is pink-garcia and hemorrhagic with a pink-garcia exophytic lesionthat measures 4 x 2 x 0.3 cm. The lesion is located on the anterior andposterior fundus, 4 cm from the lower uterine segment. Sectioning throughthe lesion reveals that it does not grossly extend into the myometrium. Theendometrium measures 0.1 cm in thickness. The myometrium measures 1.7 cm inthickness. The myometrium is pink-garcia and trabeculated. The serosal surfaceis pink-garcia, smooth and glistening. Attached to the uterus is the leftfallopian tube that measures 3.5 cm in length and 0.5 cm in diameter. Theouter surface is pink-garcia, smooth and glistening. The fimbriated end isunremarkable. Sectioning through the tube reveals a patent lumen. Attachedto the fallopian tube is the left ovary that measures 1.8 x 1.7 x 0.8 cm.The outer surface is pink-garcia and wrinkled. Sectioning through the ovaryreveals unremarkable ovarian parenchyma. Also attached to the uterus is theright fallopian tube that measures 3.5 cm in length and 0.3 cm in diameter.The outer surface is pink-garcia, smooth and glistening. The fimbriated endcannot be grossly identified. Sectioning through the tube reveals a patentlumen. Attached to the fallopian tube is an ovary that measures 2 x 1.4 x 1cm. The outer surface is garcia-yellow and wrinkled. Sectioning through theovary reveals unremarkable ovarian parenchyma. Skimmer Reverberatory sections aresubmitted as follows: A1 anterior endomyometrium with serosa and lesion, B6guuoarku endocervical canal, A3 posterior endocervical canal, A4-A1htdtgqtk endomyometrium with serosa and lesion, A6-A7 posteriorendomyometrium with serosa and lesion, A8 lower uterine segment, A6rzkhuhxhna endomyometrium with serosa, A10 left fallopian tube, A11 leftovary, A12 right fallopian tube, A13 right ovary, A14-A9 remainder of masswith underlying myometrium.WE/dbb 06/27/2018Gross examination performed at [facility], [address] [place], [place] [address]Patient ID #: [id number] of Report: 07/03/2018Date of Procedure: 06/27/2018Date of Receipt: 06/27/2018Submitted by: GUS SAUCEDO MDLocation: FVORDiagnostic interpretation performed at [facility], [address] [place] [address]. Normal [facility] Comment on above: Performed By: #### C ONABO ####[address] [phone] IR FILTER IVCon 06-24-2018 IR FILTER IVC * * *Final Report* * *DATE OF EXAM: Jun 24 2018 12:48PM [facility]VA 0760 - IR FILTER IVC / REASON: DVT * * * * Physician Interpretation * * * * PROCEDURE: INFERIOR VENACAVOGRAM AND PLACEMENT OF AN INFERIOR VENA CAVAL FILTERHISTORY: This 58 year old woman with recent history of left leg deep vein thrombosis presents to IR for placement of an IVC filter prior to a hysterectomy two days from now.CONSENT: Risks, benefits, treatment options, potential complications and personnel to be involved were discussed (including the risks of radiation exposure, contrast and anesthesia administration, and any equipment needed for the procedure to ensure best possible outcome) with the patient and all questions were answered and consent was obtained prior to procedure.MEDICATION RECONCILIATION: The patient's medications and allergies were reviewed in the electronic medical record and reconciled to the proposed procedure/treatment.MARGARITA-PROCE DURE DISCUSSION: The appropriate elements of the pre-procedure discussion, safety check list and sign-out were performed.TIME OUT: A time out was performed immediately prior to procedure start with the nursing, and interventional team, correctly identifying the name, date of , procedure, patient position, procedure consent form, relevant diagnostic and radiology test results, safety precautions, and procedure-specific equipment needs.Start of procedure: 12:25End of procedure: 12:42Patient position: SupineAnesthesia: No sedationIntra-service time (monitoring for moderate sedation): 0 minutesPatient monitoring: I personally supervised and directed an independent trained observer who assisted in monitoring the patient?s level of consciousness and physiological status throughout the procedure.Local anesthesia: 2 % lidocaineAntibiotics: NoneAntibiotic infusion start time: N/ACONTRAST DOSE: 33 cc of Omnipaque 240 was injected into the venous system during the procedure.IMAGE GUIDANCE: Fluoroscopic and sonographic guidance was used. Ultrasound demonstrated patency of the target vein without filling defects. Access was obtained under direct sonographic visualization. A sonographic image of the vessel was obtained and placed into the permanent archive for documentation.FLUOROSCOPIC RADIATION SUMMARY:Plane A, Air Kerma: 166.0 mGyDose Area Product (DAP): 40260.0 mGy*tn1Nqokih Time: 2:24 min:secRadiation dose exceed 5 Gy: NoIf radiation dose exceeded 5 Gy, was counseling and instructional brochure provided: N/ATECHNIQUE: The patient was prepped and draped using all elements of maximal sterile barrier technique (cap, mask, sterile gown, sterile gloves, a large sterile sheet, hand hygiene and cutaneous antisepsis), sterile ultrasound gel and sterile ultrasound probe covers. After instillation of local anesthesia, the right internal jugular vein was cannulated under direct ultrasound guidance using micropuncture technique and a 5 [place] sheath was placed. Through this, a pigtail catheter was advanced into the inferior vena cava, contrast material was administered, and digital images were obtained. These images demonstrated that the inferior vena cava was free of thrombus and that the renal veins and iliac veins entered at the typical locations. Based on these images, it was decided to proceed with filter placement. Over a heavy-duty wire, the diagnostic catheter was exchanged for the filter introducer. A Cook Celect filter was then deployed in the infrarenal cava. The final placement film demonstrated good positioning and opening of the filter. The introducer was removed and manual compression was applied to the venotomy site until hemostasis was achieved. The patient tolerated the procedure well. This filter can be left in place as a permanent filter. It also has the potential to be retrieved within 6 months.RESULT:Device Implantation date: 06/24/2018Device class: IVC Filter (optionally retrievable)Device name: Cook Celect [place] filterNumber of implanted devices: 1Implant location: 2 cm below the renal vein.The patient tolerated the procedure well. There were no significant complications and no other complications during the procedure.CONCLUSION: The patient was comfortable and was transferred to the recovery area in stable condition.Estimated Blood Loss: MinimalNumber and Type of Removed Specimens: 0ATTENDING RADIOLOGIST: Swati Trejo M.D.CAR[employer] PAPER COATING SUPERVISOR: NoneThe procedure was performed by the:attending radiologist, without an editorial assistant.The attending radiologist performed the following procedural activities: Entire procedureIMPRESSION:1. CAVAGRAM DEMONSTRATING NO EVIDENCE OF THROMBUS WITHIN THE INFERIOR VENA CAVA.2. SUCCESSFUL PLACEMENT OF INFERIOR VENA CAVA FILTER IN INFRARENAL IVC DESCRIBED ABOVE. THIS FILTER IS RETRIEVABLE.Retreader: PSCJuancarlos Transcribe Date/Time: Jun 24 2018 12:51PDictated by : SWATI TREJO MDThis examination was interpreted and the report reviewed and electronically signed by: SWATI TREJO MD on Jun 24 2018 12:59PM [id number] [facility] IR INFERIOR CAVA VENOGRAMon 06-24-2018 IR INFERIOR CAVA VENOGRAM * * *Final Report* * *DATE OF EXAM: Jun 24 2018 12:48PM GINA [id number] - INFERIOR CAVA VENOGRAM / REASON: DVT * * * * Physician Interpretation * * * * PROCEDURE: INFERIOR VENACAVOGRAM AND PLACEMENT OF AN INFERIOR VENA CAVAL FILTERHISTORY: This 58 year old woman with recent history of left leg deep vein thrombosis presents to IR for placement of an IVC filter prior to a hysterectomy two days from now.CONSENT: Risks, benefits, treatment options, potential complications and personnel to be involved were discussed (including the risks of radiation exposure, contrast and anesthesia administration, and any equipment needed for the procedure to ensure best possible outcome) with the patient and all questions were answered and consent was obtained prior to procedure.MEDICATION RECONCILIATION: The patient's medications and allergies were reviewed in the electronic medical record and reconciled to the proposed procedure/treatment.MARGARITA-PROCE DURE DISCUSSION: The appropriate elements of the pre-procedure discussion, safety check list and sign-out were performed.TIME OUT: A time out was performed immediately prior to procedure start with the nursing, and interventional team, correctly identifying the name, date of , procedure, patient position, procedure consent form, relevant diagnostic and radiology test results, safety precautions, and procedure-specific equipment needs.Start of procedure: 12:25End of procedure: 12:42Patient position: SupineAnesthesia: No sedationIntra-service time (monitoring for moderate sedation): 0 minutesPatient monitoring: I personally supervised and directed an independent trained observer who assisted in monitoring the patient?s level of consciousness and physiological status throughout the procedure.Local anesthesia: 2 % lidocaineAntibiotics: NoneAntibiotic infusion start time: N/ACONTRAST DOSE: 33 cc of Omnipaque 240 was injected into the venous system during the procedure.IMAGE GUIDANCE: Fluoroscopic and sonographic guidance was used. Ultrasound demonstrated patency of the target vein without filling defects. Access was obtained under direct sonographic visualization. A sonographic image of the vessel was obtained and placed into the permanent archive for documentation.FLUOROSCOPIC RADIATION SUMMARY:Plane A, Air Kerma: 166.0 mGyDose Area Product (DAP): 87976.0 mGy*ta6Rimxgw Time: 2:24 min:secRadiation dose exceed 5 Gy: NoIf radiation dose exceeded 5 Gy, was counseling and instructional brochure provided: N/ATECHNIQUE: The patient was prepped and draped using all elements of maximal sterile barrier technique (cap, mask, sterile gown, sterile gloves, a large sterile sheet, hand hygiene and cutaneous antisepsis), sterile ultrasound gel and sterile ultrasound probe covers. After instillation of local anesthesia, the right internal jugular vein was cannulated under direct ultrasound guidance using micropuncture technique and a 5 [place] sheath was placed. Through this, a pigtail catheter was advanced into the inferior vena cava, contrast material was administered, and digital images were obtained. These images demonstrated that the inferior vena cava was free of thrombus and that the renal veins and iliac veins entered at the typical locations. Based on these images, it was decided to proceed with filter placement. Over a heavy-duty wire, the diagnostic catheter was exchanged for the filter introducer. A Cook Celect filter was then deployed in the infrarenal cava. The final placement film demonstrated good positioning and opening of the filter. The introducer was removed and manual compression was applied to the venotomy site until hemostasis was achieved. The patient tolerated the procedure well. This filter can be left in place as a permanent filter. It also has the potential to be retrieved within 6 months.RESULT:Device Implantation date: 06/24/2018Device class: IVC Filter (optionally retrievable)Device name: Cook Celect [place] filterNumber of implanted devices: 1Implant location: 2 cm below the renal vein.The patient tolerated the procedure well. There were no significant complications and no other complications during the procedure.CONCLUSION: The patient was comfortable and was transferred to the recovery area in stable condition.Estimated Blood Loss: MinimalNumber and Type of Removed Specimens: 0ATTENDING RADIOLOGIST: Swati Trejo M.D.CAR[employer] P[employer]ER COATING SUPERVISOR: NoneThe procedure was performed by the:attending radiologist, without an editorial assistant.The attending radiologist performed the following procedural activities: Entire procedureIMPRESSION:1. CAVAGRAM DEMONSTRATING NO EVIDENCE OF THROMBUS WITHIN THE INFERIOR VENA CAVA.2. SUCCESSFUL PLACEMENT OF INFERIOR VENA CAVA FILTER IN INFRARENAL IVC DESCRIBED ABOVE. THIS FILTER IS RETRIEVABLE.Retreader: GILDA Transcribe Date/Time: Jun 24 2018 12:51PDictated by : SWATI TREJO MDThis examination was interpreted and the report reviewed and electronically signed by: SWATI TREJO MD on Jun 24 2018 12:59PM [id number] [facility] US VASCULAR ACCESS GUIDEo n 06-24-2018 IR US VASCULAR ACCESS GUIDE * * *Final Report* * *DATE OF EXAM: Jun 24 2018 12:48PM GINA [id number] - IR VASCULAR ACCESS GUIDE / REASON: DVT * * * * Physician Interpretation * * * * PROCEDURE: INFERIOR VENACAVOGRAM AND PLACEMENT OF AN INFERIOR VENA CAVAL FILTERHISTORY: This 58 year old woman with recent history of left leg deep vein thrombosis presents to IR for placement of an IVC filter prior to a hysterectomy two days from now.CONSENT: Risks, benefits, treatment options, potential complications and personnel to be involved were discussed (including the risks of radiation exposure, contrast and anesthesia administration, and any equipment needed for the procedure to ensure best possible outcome) with the patient and all questions were answered and consent was obtained prior to procedure.MEDICATION RECONCILIATION: The patient's medications and allergies were reviewed in the electronic medical record and reconciled to the proposed procedure/treatment.MARGARITA-PROCE DURE DISCUSSION: The appropriate elements of the pre-procedure discussion, safety check list and sign-out were performed.TIME OUT: A time out was performed immediately prior to procedure start with the nursing, and interventional team, correctly identifying the name, date of , procedure, patient position, procedure consent form, relevant diagnostic and radiology test results, safety precautions, and procedure-specific equipment needs.Start of procedure: 12:25End of procedure: 12:42Patient position: SupineAnesthesia: No sedationIntra-service time (monitoring for moderate sedation): 0 minutesPatient monitoring: I personally supervised and directed an independent trained observer who assisted in monitoring the patient?s level of consciousness and physiological status throughout the procedure.Local anesthesia: 2 % lidocaineAntibiotics: NoneAntibiotic infusion start time: N/ACONTRAST DOSE: 33 cc of Omnipaque 240 was injected into the venous system during the procedure.IMAGE GUIDANCE: Fluoroscopic and sonographic guidance was used. Ultrasound demonstrated patency of the target vein without filling defects. Access was obtained under direct sonographic visualization. A sonographic image of the vessel was obtained and placed into the permanent archive for documentation.FLUOROSCOPIC RADIATION SUMMARY:Plane A, Air Kerma: 166.0 mGyDose Area Product (DAP): 38918.0 mGy*ty0Zaptpd Time: 2:24 min:secRadiation dose exceed 5 Gy: NoIf radiation dose exceeded 5 Gy, was counseling and instructional brochure provided: N/ATECHNIQUE: The patient was prepped and draped using all elements of maximal sterile barrier technique (cap, mask, sterile gown, sterile gloves, a large sterile sheet, hand hygiene and cutaneous antisepsis), sterile ultrasound gel and sterile ultrasound probe covers. After instillation of local anesthesia, the right internal jugular vein was cannulated under direct ultrasound guidance using micropuncture technique and a 5 [place] sheath was placed. Through this, a pigtail catheter was advanced into the inferior vena cava, contrast material was administered, and digital images were obtained. These images demonstrated that the inferior vena cava was free of thrombus and that the renal veins and iliac veins entered at the typical locations. Based on these images, it was decided to proceed with filter placement. Over a heavy-duty wire, the diagnostic catheter was exchanged for the filter introducer. A Cook Celect filter was then deployed in the infrarenal cava. The final placement film demonstrated good positioning and opening of the filter. The introducer was removed and manual compression was applied to the venotomy site until hemostasis was achieved. The patient tolerated the procedure well. This filter can be left in place as a permanent filter. It also has the potential to be retrieved within 6 months.RESULT:Device Implantation date: 06/24/2018Device class: IVC Filter (optionally retrievable)Device name: Cook Celect [place] filterNumber of implanted devices: 1Implant location: 2 cm below the renal vein.The patient tolerated the procedure well. There were no significant complications and no other complications during the procedure.CONCLUSION: The patient was comfortable and was transferred to the recovery area in stable condition.Estimated Blood Loss: MinimalNumber and Type of Removed Specimens: 0ATTENDING RADIOLOGIST: Swati Trejo M.D.CAR[employer] P[employer]ER COATING SUPERVISOR: NoneThe procedure was performed by the:attending radiologist, without an editorial assistant.The attending radiologist performed the following procedural activities: Entire procedureIMPRESSION:1. CAVAGRAM DEMONSTRATING NO EVIDENCE OF THROMBUS WITHIN THE INFERIOR VENA CAVA.2. SUCCESSFUL PLACEMENT OF INFERIOR VENA CAVA FILTER IN INFRARENAL IVC DESCRIBED ABOVE. THIS FILTER IS RETRIEVABLE.Retreader: GILDA Transcribe Date/Time: Jun 24 2018 12:51PDictated by : SWATI TREJO MDThis examination was interpreted and the report reviewed and electronically signed by: SWATI TREJO MD on Jun 24 2018 12:59PM [id number] [facility] PT EDon 06-24-2018 PT ED HNO ID: [id number] thor: Clarissa (Rn) Dontae, RNService: RadiologyAuthor Type: Registered NurseType: Patient EducationFiled: 06/24/2018 11:50 AMNote Text:PATIENT EDUCATION TOPIC: PROCEDURE / SURGERY: Procedure/Surgery: IVCFilter placementPATIENT NAME: Cara HoodMRN: [id number] LOCATION: INTERVENTIONAL RADIOL*READINESS TO LEARNCOGNITIVE ABILITY: Alert and orientedMOTIVATION TO LEARN: InterestedFAMILY SUPPORT: High - Very involved in pt careINSTRUCTION PROVIDED TO: Patient and family memberPATIENT LEARNS BEST BY: Individual InstructionFACTORS AFFECTING LEARNING: NonePHYSICAL LIMITATIONS AFFECTING LEARNING: NoneLEARNING RESPONSEDIAGNOSIS: ADULT: DVT'sPATIENT/FAMILY RESPONSE: Verbalizes understanding of: YYFN-[id number]-Ixi rect actions to take to reduce post procedurecomplicationsPRE-PROC EDURE INSTRUCTIONS-Correct action to take to follow pre-procedureinstructionsMETHO D OF INSTRUCTION: Individual instructionFOLLOW-UP PLAN: Follow-up with Primary CareINSTRUCTIONAL AIDS USED: NASUPPLEMENTAL MATERIAL PROVIDED TO PATIENT: Procedure dischargeinstructionsREFERRAL (RECOMMENDATION): NoneElectronically Signed By: Clarissa Diggs RN [facility] HOSPon 06-19-2018 HOSP Patient:Xiang HoodMRN: Height:5' 8(1.727 m)Weight:275 lb 6.4 oz (124.921 kg)Outpatient Medications as of 06/24/18:levothyroxine (SYNTHROID) 150 mcg tabletenoxaparin (LOVENOX) 120 mg/0.8 mL injectionalbuterol sulfate (PROVENTIL INHALATION)ibuprofen (MOTRIN) 200 mg tabletAdmission/Clinic Administered Medications as of 06/24/18:Patient has no admission medications.Problem List:Complex atypical endometrial hyperplasia [N85.02]Acquired hypothyroidism [E03.9]Morbid obesity (HCC) [E66.01]Goiter [E04.9]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]DVT (deep venous thrombosis) (HCC) [I82.409]Superficial thrombosis of left lower extremity [I82.812]Anticoagulation management encounter [Z51.81, Z79.01]Allergies:EtodolacPenic illinsDate Verified: 06/24/18Lab ValuesLab Value Units Date High LowPOTA* 4.4 mmol/L 06/14/2018 5.1 3.7HEMA* 44.4 % 06/14/2018 46.0 36.0Progress Notes ([facility]):Ivett Villanueva LPN 06/21/2018 4:44 PM SignedAMBULATORY PATIENT EDUCATIONTOPIC: Survival Skills: SURVIVAL SKILLS: Medication Administration LovenoxTeaching.READINESS TO LEARNCOGNITIVE ABILITY: Alert and orientedMOTIVATION TO LEARN: EagerInterestedFAMILY SUPPORT: High - Very involved in pt careINSTRUCTION PROVIDED TO: Patient and family memberPATIENT LEARNS BEST BY: Multiple MethodsFACTORS AFFECTING LEARNING: NonePHYSICAL LIMITATIONS AFFECTING LEARNING: NoneLEARNING RESPONSEDIAGNOSIS: Left leg dvtMETHOD OF INSTRUCTION: Individual instructionWritten instruction - handoutsVerbal instructionDemonstration-Hands on LearningPATIENT / FAMILY RESPONSE: Verbalizes understanding of: MEDICALREGIMEN-Importance of following prescribed medical regimenMEDICATION DOSE MISSED-Correct action to take if medication dose is missedMEDICATION PRESCRIBED-Accurate knowledge of prescribed medication prior todischargeMEDICATION ROUTE-Correct route for administration of the prescribed medicationMEDICATION SIDE EFFECTS-Side effects associated with the medication that warranta call to the physicianPerforms skill independently: SELF INJECTION- Able to administer self injectionusing clean techniqueFOLLOW-UP PLAN: Contact information given.SUPPLEMENTAL MATERIAL: Lovenox kit.REFERRAL (RECOMMENDATION): NoneElectronically Signed By: Ivett Villanueva LPN In Department: VASCULAR MEDICINEProgress Notes ([facility]):Ness Umana, RN, RN 06/21/2018 2:25 PM SignedLVM for patient to return call to this office for pre op instructions. Willawait return call. Normal [facility] NURSING PROGon 06-18-2018 Protein mass conc HNO ID: [id number] thor: Mally Spann (Rn) Tolbert, RNService: (none)Author Type: Registered NurseType: Nursing Progress NoteFiled: 06/18/2018 1:30 PMNote Text:PACC Nurse Progress NoteHistory AND Physical:PACC Visit Date: 06/14/18Original HANDP Date: N/AED visit Date: N/AOutside HANDP Scanned Date: N/ALabs Within Last 6 Months:CBC: Date 06/14/18BMP/CMP: Date 06/14/18TYPE AND SCREEN: Date 06/14/18[place]: Date 06/14/18 acceptable labsImaging Within Last 12 Months:N/ACardiac Testing:EKG in last 12 Months: Yes: Date: 04/30/18, Comment: in epicLast Menstrual Period:LMP Date: N/APostmenopausal >1yr: Yes,S/P Hysterectomy: N/ABMI Percentile (PEDS):42Risk Assessment:N/AAnesthesia Review:N/ANarrative:asthmaPre- op Considerations:N/AChart Check:Susan Tolbert RNSeptember 2017 1:29 PM [facility] Confirm Blood Typeon 018 ABO/RH(D) Positive [facility] Comment on above: Performed By: #### C ONABO ####[place] [id number] [place] [phone] Type and SCR (30D)on 018 ABO/RH(D) Positive [facility] Comment on above: Performed By: #### T SCR30 ####[place] [phone] HOSPon 05-29-2018 HOSP Patient Update (GYNML) CARA GAMINO ([id number]) 1960 FDate Time Provider Department05/29/18 MAIRA BABB (JED) GYNML During your visit today, we recorded the following information about you:Allergies As of Date: 05/29/2018 Noted Allergy ReactionETODOLAC 05/17/2018 4 - HivesPENICILLINS 05/17/2018 4 - HivesDate Reviewed: 05/27/2018Reviewed by: Gus Saucedo - Fully AssessedOrder(s):SURGICAL REQUEST - ELECTIVE [[id number]] Order #: [id number]: 1Prescriptions as of 05/29/2018 Sig: LEVOTHYROXINE 150 MCG TABLET Take 150 mcg by mouth daily b*Problem List As Of Date 05/29/2018 Noted Resolved Complex atypical endometrial hyperplasia [N85.0*INVALID FOR* More... Status:Closed by MAIRA BABB CNP on 05/29/18 [facility] Patient:Xiang HoodMRN: Height:5' 8(1.727 m)Weight:275 lb 6.4 oz (124.921 kg)Outpatient Medications as of 06/27/18:oxyCODONE IR (ROXICODONE) 5 mg immediate release tabletdocusate sodium (COLACE) 100 mg capsuleibuprofen (MOTRIN) 600 mg tabletlevothyroxine (SYNTHROID) 150 mcg tabletenoxaparin (LOVENOX) 120 mg/0.8 mL injectionalbuterol sulfate (PROVENTIL INHALATION)Admission/Clinic Administered Medications as of 06/27/18:lidocaine 10 mg/mL (1 %) 1-2 mg injection (XYLOCAINE)lactated ringers infusionciprofloxacin 400 mg in D5W 200 mL (CIPRO)metroNIDAZOLE 500 mg PREMIX piggyback (FLAGYL)acetaminophen 1,000 mg tab(s) (TYLENOL)Problem List:Complex atypical endometrial hyperplasia [N85.02]Acquired hypothyroidism [E03.9]Morbid obesity (HCC) [E66.01]Goiter [E04.9]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]DVT (deep venous thrombosis) (HCC) [I82.409]Superficial thrombosis of left lower extremity [I82.812]Anticoagulation management encounter [Z51.81, Z79.01]Obesity, Class III, BMI >= 40 [E66.01]Allergies:EtodolacPeni cillinsDate Verified: 06/27/18Lab ValuesLab Value Units Date High LowPOTA* 4.4 mmol/L 06/14/2018 5.1 3.7HEMA* 44.4 % 06/14/2018 46.0 36.0Progress Notes ([facility]):Ivett Villanueva LPN 06/21/2018 4:44 PM SignedAMBULATORY PATIENT EDUCATIONTOPIC: Survival Skills: SURVIVAL SKILLS: Medication Administration LovenoxTeaching.READINESS TO LEARNCOGNITIVE ABILITY: Alert and orientedMOTIVATION TO LEARN: EagerInterestedFAMILY SUPPORT: High - Very involved in pt careINSTRUCTION PROVIDED TO: Patient and family memberPATIENT LEARNS BEST BY: Multiple MethodsFACTORS AFFECTING LEARNING: NonePHYSICAL LIMITATIONS AFFECTING LEARNING: NoneLEARNING RESPONSEDIAGNOSIS: Left leg dvtMETHOD OF INSTRUCTION: Individual instructionWritten instruction - handoutsVerbal instructionDemonstration-Hands on LearningPATIENT / FAMILY RESPONSE: Verbalizes understanding of: MEDICALREGIMEN-Importance of following prescribed medical regimenMEDICATION DOSE MISSED-Correct action to take if medication dose is missedMEDICATION PRESCRIBED-Accurate knowledge of prescribed medication prior todischargeMEDICATION ROUTE-Correct route for administration of the prescribed medicationMEDICATION SIDE EFFECTS-Side effects associated with the medication that warranta call to the physicianPerforms skill independently: SELF INJECTION- Able to administer self injectionusing clean techniqueFOLLOW-UP PLAN: Contact information given.SUPPLEMENTAL MATERIAL: Lovenox kit.REFERRAL (RECOMMENDATION): NoneElectronically Signed By: Ivett Villanueva LPN In Department: VASCULAR MEDICINEProgress Notes ([facility]):Ness Umana, RN, RN 06/21/2018 2:25 PM SignedLVM for patient to return call to this office for pre op instructions. Willawait return call.Julissa Lucero, RN, RN 06/25/2018 11:58 AM SignedPre-op teachingProcedure: hysterectomyPhysician: tremaineLocation: [facility]: [phone] AND Time: 06/27/18MEDICAL CLEARANCE: No CARDIAC CLEARANCE: NoPRE ADMISSION TESTIN06/14/18THE FOLLOWING WAS EVALUATED Motivation To Learn: Eager Family/Significant Other Support: High - Very involved in pt care Cognitive Ability: Alert and orientedPatient Learns Best By: Individual InstructionWritten Instruction - Hand-outsVerbal InstructionThe Following Influencing Factors Were Barriers To This Education Session: NoneThe Following Physical Limitations Were Barriers To This Education Session:NoneInstruction Provided To: PatientMEDICATION INFORMATIONASPIRIN and ADVIL can make you more prone to bleeding after surgery. PleaseSTOP taking these medications at least (5) days before and for (3) days aftersurgery or procedure. Some common medications that contain ASPIRIN or act likeAspirin areTO BE AVOIDED:This is a list of the medications you should avoid: Advill Celebrex MotrinAggrenox Clinoril Naprosyn(naproxen)Agrylin NSAIDS Pepto-BismolAleve Ecotrin PersantineAlka-Fillmore Excedrin PlaquenilAnacin Heparin PlavixAscriptin Herbals PletalAspergum Ibuprofen TiclidBayer Indocin TrentalBextra Midol VanquishBufferin Gingko Biloba Vitamin E (MVI)MEDICATIONS YOU MAY SUBSTITUTEAnacin 3 Fioricet * Tylenol with codeine *Darvocet N 100 * Plenadol Percocet *Datril Sine-Aide TylenolExcedrin PM(*Denotes prescription needed to obtain these medications)Learning Topic: Procedure/Surgery:Instructions reviewed for arrival time, parking and admission.Specific topics reviewed and discussed with all surgical patients include:No eating, drinking, or smoking after midnight prior to surgery.Medications as prescribed by anesthesia or the physician.Bowel Prep as indicated.Review of information contained in surgical packetPre-operative and intra-operative general activities were reviewed including:Holding Area, assessments, surgical positioning, and Family Waiting Area.Written post-operative instructions were given to the patient regarding post-opactivity, pain control, symptoms to report.Post-operative instructions provided and reviewed with patient/family:ACTIVITY - No heavy lifting (>5-10 lbs), no pushing/pulling, OK to climb stairsDRIVING - No driving while taking prescription pain medication, or within 24hours of anesthesia, OK to ride in a car.DIET - Advance diet as tolerated and as ordered by MD, drink 8 glasses of watera day, eat a diet high in protein and fiber unless otherwise directed by MD.CATHETER - Will be inserted during surgery, you may go home with a catheter. Ifyou go home with a catheter you will have to come back to the office for avoiding trial, UTI symptoms reviewed and patient instructed to notify MD of anyof these symptoms.INCISION CARE - Keep incision clean and dry, jossie to be removed 7-10 daysafter surgery, steristrips do not need to be removed by MDBATHING - OK to shower after surgery unless otherwise directed by MD, no tubbaths.PAIN MEDICATION - IV pain medication after surgery, IV DIRECTOR LIFE SALES if ordered by MD,discharged home with a prescription for PO pain medication, pain managementafter surgery, side effects of pain medication (including constipation,dizziness, drowsiness, and medication interactions).DVT PROPHYLAXIS - Early ambulation, SCDs, injectable anticoagulants (heparin,lovenox, etc)RESPIRATORY - Incentive spirometer, coughing/deep breathing exercises,ambulation.RETURN TO WORK - As directed by physician, please send any [place] papers tophysician's clinical secretary.SYMPTOMS TO NOTIFY MD - Fever, chills, nausea, vomiting, increased or severepain, heavy vaginal bleeding, foul smelling vaginal drainage, pain or swellingin extremities.URGENT SYMPTOMS - Call 911 or go to ER if any shortness of breath, difficultybreathing, or chest pain.HOW TO CONTACT PHYSICIAN - Physician's office phone number given to patient, ifafter hours patient instructed to call carton making machine operator and ask for the doctor route driver salesperson.Patient and family have phone number to call 24 hours/day.Patient Evaluation: Verbalizes understandingPatient and/or family express understanding of upcoming surgery and theoperative process. Questions answered.Follow Up Plan: Follow up as neededSupplemental Material Given:Pre-operative teaching packet provided to the patient:INPATIENT/OUTPATIENT printed instructions; Post-operative instruction sheet,bowel prep instruction sheetFor questions contact: office at [phone] By Julissa Lucero RN [facility] Vital Signs Date Time Vital Sign Value Performing Clinician Facility 12-27-2022 14:16-0400 Diastolic Blood Pressure Non-Invasive [address] LEXIE HANEY MD [facility] 12-27-2022 14:16-0400 Heart rate 72 /min DR LEXIE HANEY MD [facility] 12-27-2022 14:16-0400 Respiratory rate 18 /min DR LEXIE HANEY MD [facility] 12-27-2022 14:16-0400 Systolic Blood Pressure Non-Invasive [address] LEXIE HANEY MD [facility] 12-27-2022 14:00-0400 Heart rate 70 /min DR LEXIE HANEY MD [facility] 12-27-2022 14:00-0400 Respiratory rate 17 /min DR LEXIE HANEY MD [facility] 12-27-2022 14:00-0400 Systolic Blood Pressure Non-Invasive [address] LEXIE HANEY MD [facility] 12-27-2022 13:39-0400 Diastolic Blood Pressure Non-Invasive [address] LEXIE HANEY MD [facility] 12-27-2022 13:39-0400 Heart rate 69 /min DR LEXIE HANEY MD [facility] 12-27-2022 13:39-0400 Respiratory rate 19 /min DR LEXIE HANEY MD [facility] 12-27-2022 13:39-0400 Systolic Blood Pressure Non-Invasive [address] LEXIE HANEY MD [facility] 12-27-2022 13:10-0400 Body temperature 98.06 [degF] DR LEXIE HANEY MD [facility] 12-27-2022 13:05-0400 Respiratory Rate - Anes 4 br/min DR LEXIE HANEY MD [facility] 12-27-2022 13:00-0400 Respiratory Rate - Anes 17 br/min DR LEXIE HANEY MD [facility] 12-27-2022 12:55-0400 Respiratory Rate - Anes 7 br/min DR LEXIE HANEY MD [facility] 12-27-2022 10:29-0400 Blood Pressure Cuff Size DR LEXIE HANEY MD [facility] 12-27-2022 10:29-[address] LEXIE HANEY MD [facility] 12-27-2022 10:29-[address] LEXIE HANEY MD [facility] 12-27-2022 10:29-0400 Body height 172.[address] LEXIE HANEY MD [facility] 12-27-2022 10:29-0400 Body temperature 97.7 [degF] DR LEXIE HANEY MD [facility] 12-27-2022 10:29-0400 Body weight 72.[address] LEXIE HANEY MD [facility] 12-27-2022 10:29-0400 Body weight 24.38 kg/m2 DR LEXIE HANEY MD [facility] 12-27-2022 10:29-0400 Heart rate 78 /min DR LEXIE HANEY MD [facility] 12-25-2022 13:55-[address] LEXIE HANEY MD [facility] 12-25-2022 13:55-[address] LEXIE HANEY MD [facility] 12-25-2022 13:55-0400 Body height 172.[address] LEXIE HANEY MD [facility] 12-25-2022 13:55-0400 Body weight 117.[address] LEXIE HANEY MD [facility] 12-25-2022 13:55-0400 Body weight 39.4 kg/m2 DR LEXIE HANEY MD [facility] 12-25-2022 13:55-0400 Diastolic Blood Pressure Non-Invasive [address] LEXIE HANEY MD [facility] 12-25-2022 13:55-0400 Heart rate 90 /min DR LEXIE HANEY MD [facility] 12-25-2022 13:55-0400 Respiratory rate 18 /min DR LEXIE HANEY MD [facility] 12-25-2022 13:55-0400 Systolic Blood Pressure Non-Invasive [address] LEXIE HANEY MD [facility] 02-27-2022 18:29-0400 Body temperature 98.1 [degF] Olivier Malik MD Work Phone: [facility] 02-27-2022 18:29-0400 Body weight 122.47 kg Olivier Malik MD Work Phone: [facility] 02-27-2022 18:29-0400 Diastolic blood pressure 90 mm[Hg] Olivier Malik MD Work Phone: [facility] 02-27-2022 18:29-0400 Heart rate 82 /min Olivier Malik MD Work Phone: [facility] 02-27-2022 18:29-0400 Respiratory rate 20 /min Olivier Malik MD Work Phone: [facility] 02-27-2022 18:29-0400 SaO2% (BldA) [Mass fraction] 98 % Olivier Malik MD Work Phone: [facility] 02-27-2022 18:29-0400 Systolic blood pressure 122 mm[Hg] Olivier Malik MD Work Phone: [facility] Encounters Encounter Date Encounter Type Care Provider Facility Start: 06-03-2025 End: 06-03-2025 ambulatory CORNELIO DEIDRA Facility:[facility] Start: 06-03-2025 End: 06-03-2025 Patient encounter procedure CORNELIO DEIDRA [facility] Start: 12-19-2024 End: 12-19-2024 ambulatory CORNELIO GAY DO Facility:[facility] Start: 09-12-2024 End: 09-16-2024 ambulatory HEATH ZUNIGA GOLF COURSE DESIGNER-RIP SAWYER Facility:[facility] Start: 09-12-2024 End: 09-16-2024 Outreach Lab HEATH ZUNIGA GOLF COURSE DESIGNER-RIP SAWYER [facility] Start: 06-16-2024 End: 06-16-2024 ambulatory CORNELIO GAY DO Facility:[facility] Start: 06-16-2024 End: 06-16-2024 Patient encounter procedure CORNELIO GAY DO [facility] Start: 10-08-2023 End: 10-09-2023 ambulatory NELSON CHAIDEZ GOLF COURSE DESIGNER - RIP SAWYER Facility:[facility] Start: 06-30-2023 End: 07-01-2023 ambulatory CORNELIO GAY DO Facility:[facility] Start: 05-25-2023 End: 05-26-[address] SINTIA MARION DO Facility:[facility] Start: 05-25-2023 End: 05-25-[address] SINTIA MARION DO [facility] Start: 05-14-2023 End: 05-14-2023 ambulatory José Antonio RÍOS Facility:[facility] Start: 04-20-2023 End: 04-21-2023 ambulatory CORNELIO GAY DO Facility:[facility] Start: 04-20-2023 End: 04-20-2023 Patient encounter procedure CORNELIO GAY DO [facility] Start: 01-22-2023 End: 01-23-2023 ambulatory CORNELIO GAY DO Facility:[facility] Start: 12-27-2022 End: 12-27-[address] LEXIE HANEY MD Facility:[facility] Start: 12-27-2022 End: 12-27-[address] LEXIE HANEY MD [facility] Start: 12-25-2022 End: 12-26-[address] LEXIE HANEY MD Facility:[facility] Start: 12-25-2022 End: 12-25-[address] LEXIE HANEY MD [facility] Start: 12-04-2022 End: 12-05-[address] SINTIA MARION DO Facility:[facility] Start: 12-04-2022 End: 12-04-[address] SINTIA MARION DO [facility] Start: 11-15-2022 End: 11-16-[address] SINTIA MARION DO Facility:[facility] Start: 11-15-2022 End: 11-15-[address] SINTIA MARION DO [facility] Start: 08-28-2022 End: 08-28-[address] SINTIA MARION DO [facility] Start: 02-27-2022 End: 02-27-2022 Office outpatient new 30 minutes Olivier Malik MD Work Phone: [facility] Comment on above: Contact dermatitis d ue to plant (Primary Dx); Bilateral lower leg cellulitis Start: 06-27-2018 End: 06-27-2018 Patient encounter GUS SAUCEDO [facility] Start: 06-24-2018 End: 06-24-2018 [facility] Procedures Date Procedure Procedure Detail Performing Clinician Start: 12-27-2022 Cholecystectomy CORNELIO GAY DO Start: 06-14-2018 Antibody screen GUS SAUCEDO Comment on above: Performed By: #### T [id number] ####[facility] [place], [place] [id number] Start: 09-24-[address] ILEANA MARION DO Hysterectomy DR LEXIE GONZALEZ MD 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 DR LEXIE HANEY MD Comment on above: left Plan of Treatment Date Care Activity Detail Author Start: 05-25-2022 Influenza vaccination INFLUENZA (Sea son Ended) [facility] Start: 06-14-2021 DIABETES SCREEN DIABETES SCREEN [facility] Start: 01-19-2012 SHINGRIX VACCINE (1 of 2) SHINGRIX V ACCINE (1 of 2) [facility] Start: 2007 COLOGUARD (FIT-DNA) COLOGUARD (FIT-D NA) [facility] Start: 2007 Colonoscopy COLONOSCOPY [facility] Start: 2007 COLORECTAL CANCER SCREENING COLORECTAL CANCER SCREENING [facility] Start: [address] COLONOGRAPHY [facility] Start: 2007 FECAL OCCULT BLOOD FECAL OCCULT BLOO D [facility] Start: 2007 LIPID SCREEN LIPID SCREEN [facility] Start: 2007 SIGMOIDOSCOPY SIGMOIDOSCOPY [facility] Start: 2002 Mammography MAMMOGRAM [facility] Start: 01-19-1992 HPV TESTING HPV TESTING [facility] Start: 1983 PAP TESTING PAP TESTING [facility] Start: 1981 Urine microalbumin profile DTAP,TDAP ,TD (1 - Tdap) [facility] Start: 01-19-1980 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 ANNUAL PCP TEAM CHRONIC DISEASE VISIT [facility] Start: 01-19-1980 HEPATITIS C SCREENING HEPATITIS C SC REENING [facility] Start: 01-19-1980 HIV SCREENING HIV SCREENING [facility] Start: 1974 Adult depression scr eening assessment DEPRESSION SCREENING [facility] Immunizations Immunization Date Immunization Notes Care Provider Kain patricio 01-05-2022 SARS-CoV-2 (COVID-19 ) mRNA-1273 vaccine CORNELIO GAY DO [facility] 08-25-2021 SARS-CoV-2 (COVID-19 ) mRNA-1273 vaccine CORNELIO GAY DO [facility] Comment on above: Result Comment: 2022: [id number] 01-06-2021 SARS-CoV-2 (COVID-19 ) mRNA-1273 vaccine CORNELIO GAY DO [facility] Comment on above: Result Comment: 2022: [id number] 12-09-2020 SARS-CoV-2 (COVID-19 ) mRNA-1273 vaccine CORNELIO GAY DO [facility] Comment on above: Result Comment: 2022: [id number] 11-27-2016 tetanus toxoid, redu jerri diphtheria toxoid, and acellular pertussis vaccine, adsorbed DR SINTIA MARION DO [facility] [place] Payers Date Payer Category Payer Private Health Insurance [id number] 2023 Self-pay 2022 Unknown [id number] 2017 Medicare MMO MEDICARE MMO MEDADVANTAGE O [id number] 2017-Present [phone] [address] [place] [address] [facility] [id number] 2017 Unknown [id number] 1962 Unknown [id number] [id number] .2. 1962 Unknown [id number] 2.16.840.1.855070.3.579 .2. 1962 Unknown [id number] [id number] .2.627 1962 Unknown [id number] 2.16.840.1.174562.3.579 .2. 1962 Unknown [id number] 2.16.840.1.262237.3.579 .2. 1962 Unknown [id number] 2.16.840.1.294834.3.579 .2. 1962 Unknown [id number] 2.16.840.1.743731.3.579 .2.627 1962 Unknown [id number] 2.16.840.1.342882.3.579 .2. 1962 Unknown [id number] 2.16.840.1.561041.3.579 .2.62 1962 Unknown [id number] 2.16.840.1.564489.3.579 .2. 1962 Unknown [id number] 2.16.840.1.088339.3.579 .2.627 1962 Unknown [id number] 2.16.840.1.471034.3.579 .2.627 1962 Unknown [id number] [id number] .2.627 Unknown [id number] [id number] .2.462 Social History Date Type Detail Facility Start: 06-21-2018 End: 12-18-2024 Tobacco smoking status NHIS Never smoked tobacco [facility] Start: 06-21-2018 Tobacco use and exposure Smoke less tobacco non-user [facility] Start: 02-27-2022 Alcohol intake Current non-dr stock selector of alcohol (finding) [facility] Start: 1960 Sex Assigned At Not on file [facility] Sex Assigned At Female [facility] Sexual Orientation [facility] Start: 03-19-2019 Sex Female (finding) [facility] Functional Status Date Assessment Result Facility 12-27-2022 Functional Status [facility] 12-27-2022 Functional Status Maintained [facility] Mental Status Date Assessment Result Facility 12-27-2022 Mental Status Oriented x 4 [facility] 12-27-2022 Mental Status [facility] Clinical Notes 02-27-2022 to 01-30-2025 LaboratoryLaboratoryLaboratoryRadiologyLaboratoryRadiologyRadiologyLaboratoryKev in Ruben Malik MD - 02/27/2022 6:32 PM EDTLaboratoryRadiologyLaboratoryLaboratory Note Date & Type Note Facility 01-30-2025 Evaluation + Plan note Future Scheduled TestsVitamin D Level 01/30/25 [facility] 09-13-2024 Note . MICRO - Microbiology PROCEDURE: Urine Culture [*1] SOURCE: Urine, Clean Catch BODY SITE: COLLECTED DATE/TIME: 09/12/2024 13:00 EST RECEIVED DATE/TIME: 09/12/2024 19:01 EST START DATE/TIME: 09/12/2024 19:01 EST FREE TEXT SOURCE: FINAL REPORTS Final Report [] Verified Date/Time/Personnel: 09/13/2024 14:12 EST <10,000 cfu/ml. No Significant growth. Sensitivity not indicated. Performing Locations *1: This test was performed at: [facility], [address] [place] [address], [id number] , [place] [facility] 06-16-2024 Note ORIGINAL EXAMINATION: ULTRASOUND OF THE THYROID WITH COLOR DOPPLER FLOW EVALUATION06/16/2024 3:10 pm US THYROID COMPARISON: None TECHNIQUE: This report is based on interpretation of permanently recorded ultrasound images. HISTORY: ORDERING SYSTEM PROVIDED HISTORY: Reason for Exam: Hypothyroidism, history of goiter, FINDINGS: RIGHT lobe: 4.4 x 1.3 x 1.1 cm LEFT lobe: 4.5 x 0.9 x 1.1 cm Isthmus is 0.2 cm. The gland is diffusely heterogeneous. No increase in vascularity.. Estimated total number of nodules greater than or equal to 1 cm: 0 There are multiple subcentimeter thyroid nodules which are too small for ACR TIRADS characterization never are statistically benign findings requiring no follow-up imaging. The largest of these is a 7 x 6 x 3 mm isoechoic solid nodule in the anterior mid medial right lobe. IMPRESSION: The thyroid is smaller than usual which is probably in response to long-term medication. It is diffusely heterogeneous probably reflection of previous thyroiditis. There is no suspicious thyroid nodule by ACR TIRADS criteria that requires follow-up imaging. ACR TI-RADS 2017 Recommendations: TR1(0 points) : No FNA or follow up TR2 (2 points) : No FNA or follow up TR3 (3 points) : FNA if >/= 2.5 cm, follow up if 1.5 - 2.4 cm in 1, 3, and 5 years TR4 (4-6 points) : FNA if >/= 1.5 cm, follow up if 1.0 - 1.4 cm in 1, 2, 3, and 5 years TR5 (>/= 7 points) : FNA if >/= 1.0 cm, follow up if 0.5 - 0.9 cm every year for 5 years *ACR TI-RADS recommends that no more than two nodules with the highest ACR TI-RADS total point should be biopsied and no more than four nodules should be followed. Interpreted by: Diony Iverson MD Preliminary Report By: Diony Iverson MD Electronically signed By Diony Iverson MD Dictated Date: 06/16/2024 4:35:51 PM Prelim Date: 06/16/2024 4:39:55 PM Sign Date: 06/16/2024 4:39:55 PM Ordering Provider: CORNELIO GAY [facility] 05-20-2024 Evaluation + Plan note Future Scheduled TestsThyroid Stimulating Hormone 05/20/24Free T4 05/20/24Free T3 05/20/24Lipid Profile 05/20/24Vitamin D Level 05/20/24Complete Metabolic Panel 05/20/24 [facility] 05-25-2023 Note ORIGINAL EXAMINATION: ULTRASOUND OF THE KIDNEYS 05/25/2023 10:41 am COMPARISON: 12/04/2022 HISTORY: ORDERING SYSTEM PROVIDED HISTORY: Reason for Exam: right angiomyolipoma Abnormal ultrasound follow-up, history of cholelithiasis with positive Ruiz sign FINDINGS: The right kidney measures 10.5 cm in length and the left kidney measures 11.7 cm in length. 1.4 x 1.2 x 1.2 cm hyperechoic right upper pole/interpolar region renal angiomyolipoma. 2.2 x 2.2 x 2.0 cm anechoic simple left upper pole renal cyst. Otherwise kidneys demonstrate normal cortical echogenicity. No evidence of hydronephrosis or intrarenal stones. Urinary bladder is incompletely distended, prevoid and postvoid volumes at 95 mL and 4.9 mL. IMPRESSION: Similar right upper pole renal angiomyolipoma. Simple left upper pole renal cyst. Interpreted by: Naun De La Cruz DO Preliminary Report By: Naun De La Cruz DO Electronically signed By Naun De La Cruz DO Dictated Date: 05/25/2023 12:36:26 PM Prelim Date: 05/25/2023 12:56:42 PM Sign Date: 05/25/2023 12:56:42 PM Ordering Provider: SINTIA MARION [facility] 12-27-2022 Hospital Discharge instructions Patient Education 12/27/2022 13:26:37 Nausea and Vomiting, Adult Nausea and Vomiting, Adult Nausea is the feeling that you have an upset stomach or that you are about to vomit. Vomiting is when stomach contents are thrown up and out of the mouth as a result of nausea. Vomiting can make you feel weak and cause you to become dehydrated. Dehydration can make you feel tired and thirsty, cause you to have a dry mouth, and decrease how often you urinate. Older adults and people with other diseases or a weak disease-fighting system (immune system) are at higher risk for dehydration. It is important to treat your nausea and vomiting as told by your health care provider. Follow these instructions at home: Watch your symptoms for any changes. Tell your health care provider about them. Follow these instructions to care for yourself at home. Eating and drinking Take an oral rehydration solution (ORS). This is a drink that is sold at pharmacies and retail stores. Drink clear fluids slowly and in small amounts as you are able. Clear fluids include water, ice chips, low-calorie sports drinks, and fruit juice that has water added (diluted fruit juice). Eat bland, jujk-ix-qaptin foods in small amounts as you are able. These foods include bananas, applesauce, rice, lean meats, toast, and crackers. Avoid fluids that contain a lot of sugar or caffeine, such as energy drinks, sports drinks, and soda. Avoid alcohol. Avoid spicy or fatty foods. General instructions Take jomr-xds-saefmfk and prescription medicines only as told by your health care provider. Drink enough fluid to keep your urine pale yellow. Wash your hands often using soap and water. If soap and water are not available, use hand barrel marker. Make sure that all people in your household wash their hands well and often. Rest at home while you recover. Watch your condition for any changes. Breathe slowly and deeply when you feel nauseated. Keep all follow-up visits as told by your health care provider. This is important. Contact a health care provider if: Your symptoms get worse. You have new symptoms. You have a fever. You cannot drink fluids without vomiting. Your nausea does not go away after 2 days. You feel light-headed or dizzy. You have a headache. You have muscle cramps. You have a rash. You have pain while urinating. Get help right away if: You have pain in your chest, neck, arm, or jaw. You feel extremely weak or you faint. You have persistent vomiting. You have vomit that is bright red or looks like black coffee grounds. You have bloody or black stools or stools that look like tar. You have a severe headache, a stiff neck, or both. You have severe pain, cramping, or bloating in your abdomen. You have difficulty breathing, or you are breathing very quickly. Your heart is beating very quickly. Your skin feels cold and clammy. You feel confused. You have signs of dehydration, such as: ?Dark urine, very little urine, or no urine. ?Cracked lips. ?Dry mouth. ?Sunken eyes. ?Sleepiness. ?Weakness. These symptoms may represent a serious problem that is an emergency. Do not wait to see if the symptoms will go away. Get medical help right away. Call your local emergency services (911 in the [place] Do not drive yourself to the hospital. Summary Nausea is the feeling that you have an upset stomach or that you are about to vomit. As nausea gets worse, it can lead to vomiting. Vomiting can make you feel weak and cause you to become dehydrated. Follow instructions from your health care provider about eating and drinking to prevent dehydration. Take nqbr-vmq-xpmzfsh and prescription medicines only as told by your health care provider. Contact your health care provider if your symptoms get worse, or you have new symptoms. Keep all follow-up visits as told by your health care provider. This is important. This information is not intended to replace advice given to you by your health care provider. Make sure you discuss any questions you have with your health care provider. Document Released: 09/10/2006 Document Revised: 01/02/2020 Document Reviewed: 02/18/2019 [employer] Patient Education 2020 [employer] 12/27/2022 13:24:37 General Anesthesia, Adult, Care After General Anesthesia, Adult, Care After This sheet gives you information about how to care for yourself after your procedure. Your health care provider may also give you more specific instructions. If you have problems or questions, contact your health care provider. What can I expect after the procedure? After the procedure, the following side effects are common: Pain or discomfort at the IV site. Nausea. Vomiting. Sore throat. Trouble concentrating. Feeling cold or chills. Weak or tired. Sleepiness and fatigue. Soreness and body aches. These side effects can affect parts of the body that were not involved in surgery. Follow these instructions at home: For at least 24 hours after the procedure: Have a responsible adult stay with you. It is important to have someone help care for you until you are awake and alert. Rest as needed. Do not: ?Participate in activities in which you could fall or become injured. ?Drive. ?Use heavy machinery. ?Drink alcohol. ?Take sleeping pills or medicines that cause drowsiness. ?Make important decisions or sign legal documents. ?Take care of children on your own. Eating and drinking Follow any instructions from your health care provider about eating or drinking restrictions. When you feel hungry, start by eating small amounts of foods that are soft and easy to digest (bland), such as toast. Gradually return to your regular diet. Drink enough fluid to keep your urine pale yellow. If you vomit, rehydrate by drinking water, juice, or clear broth. General instructions If you have sleep apnea, surgery and certain medicines can increase your risk for breathing problems. Follow instructions from your health care provider about wearing your sleep device: ?Anytime you are sleeping, including during daytime naps. ?While taking prescription pain medicines, sleeping medicines, or medicines that make you drowsy. Return to your normal activities as told by your health care provider. Ask your health care provider what activities are safe for you. Take lmsl-prk-ectioqh and prescription medicines only as told by your health care provider. If you smoke, do not smoke without supervision. Keep all follow-up visits as told by your health care provider. This is important. Contact a health care provider if: You have nausea or vomiting that does not get better with medicine. You cannot eat or drink without vomiting. You have pain that does not get better with medicine. You are unable to pass urine. You develop a skin rash. You have a fever. You have redness around your IV site that gets worse. Get help right away if: You have difficulty breathing. You have chest pain. You have blood in your urine or stool, or you vomit blood. Summary After the procedure, it is common to have a sore throat or nausea. It is also common to feel tired. Have a responsible adult stay with you for the first 24 hours after general anesthesia. It is important to have someone help care for you until you are awake and alert. When you feel hungry, start by eating small amounts of foods that are soft and easy to digest (bland), such as toast. Gradually return to your regular diet. Drink enough fluid to keep your urine pale yellow. Return to your normal activities as told by your health care provider. Ask your health care provider what activities are safe for you. This information is not intended to replace advice given to you by your health care provider. Make sure you discuss any questions you have with your health care provider. Document Released: 12/17/2001 Document Revised: 09/13/2018 Document Reviewed: 04/26/2018 [employer] Patient Education 2020 [employer]. 12/27/2022 13:24:18 Laparoscopic Cholecystectomy, Care After Laparoscopic Cholecystectomy, Care After This sheet gives you information about how to care for yourself after your procedure. Your health care provider may also give you more specific instructions. If you have problems or questions, contact your health care provider. What can I expect after the procedure? After the procedure, it is common to have: Pain at your incision sites. You will be given medicines to control this pain. Mild nausea or vomiting. Bloating and possible shoulder pain from the air-like gas that was used during the procedure. Follow these instructions at home: Incision care Follow instructions from your health care provider about how to take care of your incisions. Make sure you: ?Wash your hands with soap and water before you change your bandage (dressing). If soap and water are not available, use hand barrel marker. ?Change your dressing as told by your health care provider. ?Leave stitches (sutures), skin glue, or adhesive strips in place. These skin closures may need to be in place for 2 weeks or longer. If adhesive strip edges start to loosen and curl up, you may trim the loose edges. Do not remove adhesive strips completely unless your health care provider tells you to do that. Do not take baths, swim, or use a hot tub until your health care provider approves. Ask your health care provider if you can take showers. You may only be allowed to take sponge baths for bathing. Check your incision area every day for signs of infection. Check for: ?More redness, swelling, or pain. ?More fluid or blood. ?Warmth. ?Pus or a bad smell. Activity Do not drive or use heavy machinery while taking prescription pain medicine. Do not lift anything that is heavier than 10 lb (4.5 kg) until your health care provider approves. Do not play contact sports until your health care provider approves. Do not drive for 24 hours if you were given a medicine to help you relax (sedative). Rest as needed. Do not return to work or school until your health care provider approves. General instructions Take asip-jbd-nxbawfl and prescription medicines only as told by your health care provider. To prevent or treat constipation while you are taking prescription pain medicine, your health care provider may recommend that you: ?Drink enough fluid to keep your urine clear or pale yellow. ?Take afni-smh-nyulmtv or prescription medicines. ?Eat foods that are high in fiber, such as fresh fruits and vegetables, whole grains, and beans. ?Limit foods that are high in fat and processed sugars, such as fried and sweet foods. Contact a health care provider if: You develop a rash. You have more redness, swelling, or pain around your incisions. You have more fluid or blood coming from your incisions. Your incisions feel warm to the touch. You have pus or a bad smell coming from your incisions. You have a fever. One or more of your incisions breaks open. Get help right away if: You have trouble breathing. You have chest pain. You have increasing pain in your shoulders. You faint or feel dizzy when you stand. You have severe pain in your abdomen. You have nausea or vomiting that lasts for more than one day. You have leg pain. This information is not intended to replace advice given to you by your health care provider. Make sure you discuss any questions you have with your health care provider. Document Released: 09/10/2006 Document Revised: 08/23/2018 Document Reviewed: 02/26/2017 [employer] Patient Education 2020 [employer] Follow Up Care 12/21/2022 08:13:47 With:LEXIE HANEY JR, MD, Surgery Address: [address] [place] [address]- When:Within 3 Week(s) Comments:Call office to make appointment. [facility] Sharynroly Young 12-27-2022 Summary of episode note Discharge Instructions Thank you for allowing [facility] to assist you with your healthcare needs. The following is important discharge information regarding your hospital visit. Your Care Team CORNELIO GAY DO What to do next Follow Up Appointments Follow Up with LEXIE HANEY JR, MD, Surgery When In 3 weeks Why: Call office to make appointment. Where: [address] [facility] [address] [place] [address]- Someone Will Contact You Regarding These Home Health Referrals No home referrals have been ordered for you. No one will call you. Allergies Lodine (Hives) penicillin (Hives) Medications Please ask your primary doctor or pharmacist before taking any other medication not listed, including over the counter drugs, herbal medications, vitamins and or supplements as they may interact with your home medications. What How Much When Why Instructions Last Dose New acetaminophen-hydrocodone ([place] 325- 5 mg oral tablet) 1 tab(s) by mouth Every 4 hours as needed for for pain Acute post-operative pain Duration: 3 Days Pickup at [facility] #[id number] Unchanged albuterol (albuterol MDI (90 mcg/ inh) CFC free inhalation aerosol) 2 puff(s) by inhalation Every 4 hours as needed for as needed for wheezing Acute bronchitis, bacterial Unchanged cetirizine (Zyrtec 10 mg oral tablet) 1 tab(s) by mouth Once a day Unchanged levothyroxine (Synthroid 137 mcg (0.137 mg) oral tablet) 1 tab(s) by mouth Once a day [place]. change in dose Pharmacy Information [facility] #[id number]: [address] [place], [place] [id number] [phone] Please take this list to your next doctor s visit. Bring all medications you take, including over the counter medications, herbals and other supplements with you to your doctor s visit. Patients and families are reminded to discard old lists and to update any records with all medication providers or retail pharmacies. Education Materials Nausea and Vomiting, Adult Nausea is the feeling that you have an upset stomach or that you are about to vomit. Vomiting is when stomach contents are thrown up and out of the mouth as a result of nausea. Vomiting can make you feel weak and cause you to become dehydrated. Dehydration can make you feel tired and thirsty, cause you to have a dry mouth, and decrease how often you urinate. Older adults and people with other diseases or a weak disease-fighting system (immune system) are at higher risk for dehydration. It is important to treat your nausea and vomiting as told by your health care provider. Follow these instructions at home: Watch your symptoms for any changes. Tell your health care provider about them. Follow these instructions to care for yourself at home. Eating and drinking Take an oral rehydration solution (ORS). This is a drink that is sold at pharmacies and retail stores. Drink clear fluids slowly and in small amounts as you are able. Clear fluids include water, ice chips, low-calorie sports drinks, and fruit juice that has water added (diluted fruit juice). Eat bland, lwtp-bq-hdupjp foods in small amounts as you are able. These foods include bananas, applesauce, rice, lean meats, toast, and crackers. Avoid fluids that contain a lot of sugar or caffeine, such as energy drinks, sports drinks, and soda. Avoid alcohol. Avoid spicy or fatty foods. General instructions Take ifeb-fpc-cbvnekb and prescription medicines only as told by your health care provider. Drink enough fluid to keep your urine pale yellow. Wash your hands often using soap and water. If soap and water are not available, use hand barrel marker. Make sure that all people in your household wash their hands well and often. Rest at home while you recover. Watch your condition for any changes. Breathe slowly and deeply when you feel nauseated. Keep all follow-up visits as told by your health care provider. This is important. Contact a health care provider if: Your symptoms get worse. You have new symptoms. You have a fever. You cannot drink fluids without vomiting. Your nausea does not go away after 2 days. You feel light-headed or dizzy. You have a headache. You have muscle cramps. You have a rash. You have pain while urinating. Get help right away if: You have pain in your chest, neck, arm, or jaw. You feel extremely weak or you faint. You have persistent vomiting. You have vomit that is bright red or looks like black coffee grounds. You have bloody or black stools or stools that look like tar. You have a severe headache, a stiff neck, or both. You have severe pain, cramping, or bloating in your abdomen. You have difficulty breathing, or you are breathing very quickly. Your heart is beating very quickly. Your skin feels cold and clammy. You feel confused. You have signs of dehydration, such as: ? Dark urine, very little urine, or no urine. ? Cracked lips. ? Dry mouth. ? Sunken eyes. ? Sleepiness. ? Weakness. These symptoms may represent a serious problem that is an emergency. Do not wait to see if the symptoms will go away. Get medical help right away. Call your local emergency services (911 in the [place] Do not drive yourself to the hospital. Summary Nausea is the feeling that you have an upset stomach or that you are about to vomit. As nausea gets worse, it can lead to vomiting. Vomiting can make you feel weak and cause you to become dehydrated. Follow instructions from your health care provider about eating and drinking to prevent dehydration. Take uqmd-oth-xizyqfi and prescription medicines only as told by your health care provider. Contact your health care provider if your symptoms get worse, or you have new symptoms. Keep all follow-up visits as told by your health care provider. This is important. This information is not intended to replace advice given to you by your health care provider. Make sure you discuss any questions you have with your health care provider. Document Released: 09/10/2006 Document Revised: 01/02/2020 Document Reviewed: 02/18/2019 [employer] Patient Education 2020 [employer] General Anesthesia, Adult, Care After This sheet gives you information about how to care for yourself after your procedure. Your health care provider may also give you more specific instructions. If you have problems or questions, contact your health care provider. What can I expect after the procedure? After the procedure, the following side effects are common: Pain or discomfort at the IV site. Nausea. Vomiting. Sore throat. Trouble concentrating. Feeling cold or chills. Weak or tired. Sleepiness and fatigue. Soreness and body aches. These side effects can affect parts of the body that were not involved in surgery. Follow these instructions at home: For at least 24 hours after the procedure: Have a responsible adult stay with you. It is important to have someone help care for you until you are awake and alert. Rest as needed. Do not: ? Participate in activities in which you could fall or become injured. ? Drive. ? Use heavy machinery. ? Drink alcohol. ? Take sleeping pills or medicines that cause drowsiness. ? Make important decisions or sign legal documents. ? Take care of children on your own. Eating and drinking Follow any instructions from your health care provider about eating or drinking restrictions. When you feel hungry, start by eating small amounts of foods that are soft and easy to digest (bland), such as toast. Gradually return to your regular diet. Drink enough fluid to keep your urine pale yellow. If you vomit, rehydrate by drinking water, juice, or clear broth. General instructions If you have sleep apnea, surgery and certain medicines can increase your risk for breathing problems. Follow instructions from your health care provider about wearing your sleep device: ? Anytime you are sleeping, including during daytime naps. ? While taking prescription pain medicines, sleeping medicines, or medicines that make you drowsy. Return to your normal activities as told by your health care provider. Ask your health care provider what activities are safe for you. Take sunk-rgc-myzudtw and prescription medicines only as told by your health care provider. If you smoke, do not smoke without supervision. Keep all follow-up visits as told by your health care provider. This is important. Contact a health care provider if: You have nausea or vomiting that does not get better with medicine. You cannot eat or drink without vomiting. You have pain that does not get better with medicine. You are unable to pass urine. You develop a skin rash. You have a fever. You have redness around your IV site that gets worse. Get help right away if: You have difficulty breathing. You have chest pain. You have blood in your urine or stool, or you vomit blood. Summary After the procedure, it is common to have a sore throat or nausea. It is also common to feel tired. Have a responsible adult stay with you for the first 24 hours after general anesthesia. It is important to have someone help care for you until you are awake and alert. When you feel hungry, start by eating small amounts of foods that are soft and easy to digest (bland), such as toast. Gradually return to your regular diet. Drink enough fluid to keep your urine pale yellow. Return to your normal activities as told by your health care provider. Ask your health care provider what activities are safe for you. This information is not intended to replace advice given to you by your health care provider. Make sure you discuss any questions you have with your health care provider. Document Released: 12/17/2001 Document Revised: 09/13/2018 Document Reviewed: 04/26/2018 [employer] Patient Education 2020 [employer]. Laparoscopic Cholecystectomy, Care After This sheet gives you information about how to care for yourself after your procedure. Your health care provider may also give you more specific instructions. If you have problems or questions, contact your health care provider. What can I expect after the procedure? After the procedure, it is common to have: Pain at your incision sites. You will be given medicines to control this pain. Mild nausea or vomiting. Bloating and possible shoulder pain from the air-like gas that was used during the procedure. Follow these instructions at home: Incision care Follow instructions from your health care provider about how to take care of your incisions. Make sure you: ? Wash your hands with soap and water before you change your bandage (dressing). If soap and water are not available, use hand barrel marker. ? Change your dressing as told by your health care provider. ? Leave stitches (sutures), skin glue, or adhesive strips in place. These skin closures may need to be in place for 2 weeks or longer. If adhesive strip edges start to loosen and curl up, you may trim the loose edges. Do not remove adhesive strips completely unless your health care provider tells you to do that. Do not take baths, swim, or use a hot tub until your health care provider approves. Ask your health care provider if you can take showers. You may only be allowed to take sponge baths for bathing. Check your incision area every day for signs of infection. Check for: ? More redness, swelling, or pain. ? More fluid or blood. ? Warmth. ? Pus or a bad smell. Activity Do not drive or use heavy machinery while taking prescription pain medicine. Do not lift anything that is heavier than 10 lb (4.5 kg) until your health care provider approves. Do not play contact sports until your health care provider approves. Do not drive for 24 hours if you were given a medicine to help you relax (sedative). Rest as needed. Do not return to work or school until your health care provider approves. General instructions Take lhmd-npy-rclkixv and prescription medicines only as told by your health care provider. To prevent or treat constipation while you are taking prescription pain medicine, your health care provider may recommend that you: ? Drink enough fluid to keep your urine clear or pale yellow. ? Take pzpj-ihv-iaqmxcy or prescription medicines. ? Eat foods that are high in fiber, such as fresh fruits and vegetables, whole grains, and beans. ? Limit foods that are high in fat and processed sugars, such as fried and sweet foods. Contact a health care provider if: You develop a rash. You have more redness, swelling, or pain around your incisions. You have more fluid or blood coming from your incisions. Your incisions feel warm to the touch. You have pus or a bad smell coming from your incisions. You have a fever. One or more of your incisions breaks open. Get help right away if: You have trouble breathing. You have chest pain. You have increasing pain in your shoulders. You faint or feel dizzy when you stand. You have severe pain in your abdomen. You have nausea or vomiting that lasts for more than one day. You have leg pain. This information is not intended to replace advice given to you by your health care provider. Make sure you discuss any questions you have with your health care provider. Document Released: 09/10/2006 Document Revised: 08/23/2018 Document Reviewed: 02/26/2017 [employer] Patient Education 2020 [employer] Additional Information VACCINATE! IT SAVES LIVES! Members of the community who have not yet received the COVID-19 vaccine and would like to receive it can visit one of [facility] vaccine clinics. There are many vaccine clinic locations within the [facility]. For locations and available times, please visit https://gettheshot.coronavirus.[place].gov/. It is important to note that some COVID mobile vaccine clinics are held outdoors and may be canceled in rainy or stormy conditions. To learn more about pediatric vaccinations (ages 5-11), we invite you to visit the [employer] [facility] webpage. https://www.[facility].org/pag es/8059-Ajmmx-Zyxbijghyfi-Frequent eo-Neeli-Rqdqawdmf.html To learn more about the COVID-19 vaccine, we invite you to visit the CDC website for a list of frequently asked questions. https://www.cdc.gov/coronavirus/-ncov/vaccines/faq.html [facility] Patient Portal Access Instructions: Stay connected with your healthcare team and access your personal medical information anytime with the [employer] Patient Portal.If you would like a full copy of your medical records, please contact the [facility] Medical Records Department, Sunday through Sunday between 8a.m. and 4:30p.m. Please follow the directions below to access the portal: 1.Access the email account you provided upon registration to the [facility].2.Look for an invitation email from [facility].3.Open the email and access the invitation link: Accept [facility] to [facility]4.Fill in the required abdul to create your account. Sign into www.[employer] with your username and password that you created in the above steps to stay up to date. You can then view a summary of results, a summary of your visits, and the ability to download your summaries to your computer or send the information securely to a physician. Remember that your healthcare information is confidential, so carefully consider who you will allow to register on the [employer] Patient Portal for access to your information. You can also access the [employer] Patient Portal on the [employer]. Simply click on Health Records under Health Data and then click on the [employer] logo. HOW TO SAFELY DISPOSE OF PRESCRIPTION MEDICATIONS Please use one of the following methods to safely dispose of your unused medications. 1.Use a drug disposal kit: the drug disposal pouch allows you to safely discard your old and unused drugs. Ask your nurse to give you one when you are discharged.2.Visit a local take-back location: Many local pharmacies and police departments have programs that collect old and unwanted prescription drugs. Call your local pharmacy or go to http://bit.BizeeBee/1V4Oj1a to find one close to you.3.Make use of household items: Use cat litter or old coffee grounds to dispose medications if other options are not available. Mix your drugs with these household products, seal them in an airtight container and throw it into the garbage. Call [facility]: [phone] to be sure your drugs can be disposed of in this way. Some medicines may require a different approach.4.Never flush your medications down the toilet. IF YOU HAVE BEEN PRESCRIBED AN OPIOID FOR PAIN If you have been prescribed an opioid (such as hydrocodone, oxycodone or morphine), it is critical to understand the possible side effects and risks of opioid pain medications. Even when taken as directed, opioids can have several side effects including: Tolerance, meaning you might need to take more of a medication for the same pain relief. Nausea, vomiting and/or constipation. Sleepiness, dizziness, dry mouth, confusion, depression or itching. Physical dependence, meaning you have withdrawal symptoms when a medication is stopped, can develop within a few days. KNOW YOUR RESPONSIBILITIES It is important to know exactly how much and how often to take the opioid pain medications you are prescribed. Never take opioids in higher amounts or more often than prescribed. Do not combine opioids with alcohol or other drugs that cause drowsiness, such as benzodiazepines, also known as benzos, including diazepam and alprazolam, muscle relaxants or sleep aids. Never sell or share prescription opioids. This is illegal. Store opioids in a secure place and out of reach of others (including children, family, friends and visitors). The last page of this document has been signed and retained as a CHART COPY. [employer] Patient Education Materials Nausea and Vomiting, Adult General Anesthesia, Adult, Care After Laparoscopic Cholecystectomy, Care After Medication Leaflets My discharge plan and instructions have been reviewed and explained to me and I,CARA HOOD understand my current condition and have read and understand these discharge instructions. I have received a written copy of the plan/instructions. If I have questions, I am aware that I should contact my doctor. Patient/Skimmer Reverberatory Signature: Date/Time: Relationship to Patient: ___ Witness Name/Signature: Date/Time: [facility] 12-27-2022 Anesthesiology Consult note Patient: CARA HOOD Age: 62 years Sex: Female : 1960 Associated Diagnoses: None Author: MAILE REBOLLAR Preoperative Information Anesthesia history Patient's history: nausea and vomiting with anesthesia. Family's history: negative. Health Status Allergies: Allergic Reactions (Selected) Severity Not Documented Lodine- Hives. Penicillin- Hives., Allergies (2) ActiveReaction LodineHives penicillinHives Current medications: (Selected) Inpatient Medications Ordered LR 1000 mL: 20 mL/hr, Intravenous lidocaine 1% preservative-free injectable solution: 2.5 mg, 0.25 mL, Intradermal, prep pharm Prescriptions Prescribed Synthroid 137 mcg (0.137 mg) oral tablet: 137 mcg, 1 tab(s), Oral, qDay, MILTON. change in dose, 30 tab(s), 1 Refill(s) albuterol MDI (90 mcg/inh) CFC free inhalation aerosol: 2 puff(s), Inhalation, q4h, PRN: as needed for wheezing, 18 gram(s), 0 Refill(s) Documented Medications Documented Zyrtec 10 mg oral tablet: 10 mg, 1 tab(s), Oral, qDay, 30 tab(s), 0 Refill(s), Medications (2) Active Scheduled: (1) lidocaine 1% (MPF) 2 mL vial pf 2.5 mg 0.25 mL, Intradermal, prep pharm Continuous: (1) Lactated Ringers Infusion 1000 mL 1,000 mL, Intravenous, 20 mL/hr PRN: (0) Problem list: Medical Cholelithiasis / SNOMED CT 120679117 / Confirmed Cystocele / SNOMED CT 007894213 / Confirmed H/O: osteoarthritis / SNOMED CT 363771372 / Confirmed Hypothyroidism / SNOMED CT 39637784 / Confirmed Mitral valve prolapse / SNOMED CT 1280457285 / Confirmed Pure hypercholesterolemia / SNOMED CT 816752151 / Confirmed Shingles / SNOMED CT 3473212 / Confirmed Thyromegaly / SNOMED CT 2492272 / Confirmed Vitamin D deficiency / SNOMED CT 54186607 / Confirmed, Active Problems (9) Cholelithiasis Cystocele H/O: osteoarthritis Hypothyroidism Mitral valve prolapse Pure hypercholesterolemia Shingles Thyromegaly Vitamin D deficiency Histories Past Medical History: Resolved Thrombophlebitis of deep vein of left lower limb (332327533044679): Resolved. DVT - Deep vein thrombosis of lower limb (2633352599): Resolved. Family History: Cancer Father Grandparent Comments: 12/18/2022 14:12 SURINDER - Jade Sigala throat COPD - Chronic obstructive pulmonary disease Mother () CHF - Congestive heart failure Mother () Diabetes Brother Procedure history: delivery (0988210026) in 2001 at 42 Years. Hysterectomy (493462950). 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 Comments: 12/18/2022 14:09 Jade Riley left Social History Social & Psychosocial Habits Alcohol 07/10/2019 Use: Never Substance Abuse 07/10/2019 Use: Never Tobacco 07/10/2019 Tobacco Use: Never (less than 100 in l Home/Environment 12/25/2022 Domestic Concerns None Primary Environmental Health Aide: Self Lives In Single level home Spouse Name LARRY Marital Status of Patient if Patient Independent Adult: Nutrition/Health 12/25/2022 Type of diet: Regular Eating Difficulties None Caffeine intake amount: Coffee- 2 servings/day . Physical Examination Vital Signs 12/27/2022 10:29 EDT Temperature Temporal Artery 36.5 DegC Apical Heart Rate 78 bpm Respiratory Rate 12 br/min LOW Systolic Blood Pressure Non-Invasive 150 mmHg HI Diastolic Blood Pressure Non-Invasive 81 mmHg Blood Pressure Method Automatic Blood Pressure Location Left arm Blood Pressure Cuff Size Large Vital Signs(last 24 hrs) Last Charted Resp Rate L 12br/min (DEC 27 10:) SBPH 150mmHg (DEC 27:) DBP81 mmHg (DEC 27:) BMI24.38 (DEC 27:) Measurements from flowsheet : Measurements 12/27/2022 10:29 EDT Height 172.7 cm Admission Weight 72.7 kg Weight Method Stated Amidon Body Weight 63.88 kg Body Mass Index 24.38 kg/m2 Body Mass Index 24.38 kg/m2 Pain assessment: Pain Assessment 12/27/2022 10:29 EDT Primary Pain Intensity 0 Pain Scale Type 0-10 Pain scale . General: Alert and oriented, No acute distress. Airway: Normal temporomandibular joint mobility. Mallampati classification: II (soft palate, fauces, uvula visible). Dentition Evaluation: Dentures, lower, Capped teeth. Respiratory: Lungs are clear to auscultation, Respirations are non-labored. Cardiovascular: Normal rate, Regular rhythm. Neurologic: Alert, Oriented. Review / Management Results review: No qualifying data available , Lab results 12/27/2022 10:48 EDT SN - Preop - CTm Pt in SDS Room 12/27/2022 10:24 SN - Preop - CTm Pt Ready for OR/Proced 12/27/2022 10:48 12/27/2022 10:47 EDT indocyanine green 5 mg mg Lactated Ringers Injection Begin Bag 1,000 mL mL 12/27/2022 10:43 EDT IV Present Present Forearm Right 12/27/2022 20 gauge Peripheral IV Activity: Insert new site Peripheral IV Dressing Condition: Clean, Dry, Intact Peripheral IV Dressing Activity: Applied, Transparent dressing Peripheral IV Line Status/Patency: Flushes easily Peripheral IV Site Condition: No complications Peripheral IV Equipment: Extension set, PRN Adaptor 12/27/2022 10:29 EDT Designated Person #1 We May Share SHANTI NAYLOR [phone] Designated Person #1 Relationship Family member Designated Person #2 We May Share PHI LARRY Renan Designated Person #2 Relationship Spouse Privacy Restrictions Requested None Height 172.7 cm Admission Weight 72.7 kg Weight Method Stated Amidon Body Weight 63.88 kg Body Mass Index 24.38 kg/m2 Body Mass Index 24.38 kg/m2 Temperature Temporal Artery 36.5 DegC Apical Heart Rate 78 bpm Respiratory Rate 12 br/min LOW Systolic Blood Pressure Non-Invasive 150 mmHg HI Diastolic Blood Pressure Non-Invasive 81 mmHg Blood Pressure Method Automatic Blood Pressure Location Left arm Blood Pressure Cuff Size Large Primary Pain Intensity 0 Pain Scale Type 0-10 Pain scale Heart Rhythm Regular Oxygen Therapy Room air Oxygen Saturation 96 % Abdomen Description Non-distended Abdomen Palpation Non-Tender Bowel Sounds All Quadrants Present Urinary Elimination Voiding, no difficulties Status No, per patient Skin Temperature Warm Skin Description Paige, Dry Skin Integrity Intact Neurological Symptoms Patient denies Extremity Movement Equal Characteristics of Speech Clear Level of Consciousness Alert Strength All Extremities Strong Tone All Extremities Normal Sensation All Extremities Intact Affect/Behavior Appropriate Orientation Oriented x 4 Sensory Deficits None Sleep Apnea Snore No Sleep Apnea Tired No Sleep Apnea Obstruction No Sleep Apnea Pressure No Sleep Apnea BMI Yes Sleep Apnea Age Yes Sleep Apnea Neck No Sleep Apnea Gender No Sleep Apnea Score 2 High Risk for Sleep Apnea No Diagnosed With Sleep Apnea No Advanced Directives Yes Advance Directive Location Family instructed to bring in copy Infectious Disease Symptoms Patient states no symptoms Infectious Disease Recent Exposure No Alcohol and Drug Use No Employee of Institutional Living No Health Care Employee No History of Exposure to TB No History of Positive Chest X-Ray for TB No History of Positive TB Skin Test No Homeless No Known Immunosuppression No Recent Immigrant No Resident of Institutional Living No Bloody Sputum No Fatigue No Fever No Loss of Appetite No Night Sweats No Persistent Cough > 3 Weeks No Weight Loss No Allergies Yes Transmission Calibration Engineer On Yes Consent Form Signed Yes Patient Dressed In Hospital gown Pre-op Preparation Glasses removed CHG Preoperative Wash/Wipe Night before procedure, Day of procedure CHG Skin Prep Completed for Eligible Surgery History & Physical Update On Chart Yes History & Physical On Chart Yes Obstructive Sleep Apnea Assess Completed Yes Safety Brochure Information Reviewed Unable to complete Sharyn Garcia Video Viewed No Barriers to Learning None evident Teaching Method Explanation, Printed materials Teaching Evaluation Verbalizes/Nonverbally indicates understanding Preferred Written Language [place] Preferred Spoken Language [place] Information Given by Patient Patient's Current Physicians Patient's Current Physicians Discharge To, Anticipated Home independently Activity Status ADL Awake SCD On/Re-applied bilateral knee high NPO Status Maintained Standard Safety ID band on, Call device within reach, Bed in low position, Wheels locked, Upper/Half-Length side-rails up, Safety level maintained Prev Test Positive/Diagnosis w/COVID-19 No Current Quarantine/Isolated any Illness No Any Contact with Sick Animals/Birds No Traveled Anywhere in Last 30 Days No Allergy Band on and Verified Yes Patient ID Band on and Verified Yes Implants Verified Yes Pacemaker/AICD Verified Yes Blood Consent Signed Yes Last Fluid Intake 12/26/2022 16:30 Last Food Intake 12/26/2022 16:30 Lost Weight Unintentionally Recently No Eat Poorly Due to Decreased Appetite No Total MST Score 0 No Personal Devices, Patient Valuables Dentures, lower, Glasses Anesthesia/Transfusions Prior anesthesia Admission Note-Nursing Same Day Patient History . Assessment and Plan [place] [employer] Anesthesi[employer] (ASA) physical status classification: Class III. Anesthetic Preoperative Plan Anesthetic technique: General. Maintenance airway: Oral endotracheal tube. Postoperative pain management: Per surgeon. Risks discussed: nausea, vomiting, sore throat, dental injury, hypotension, allergic reaction, serious complications. Informed consent: signed by patient. Digitally Signed by MAILE REBOLLAR on 12/27/2022 11:06 AM [facility] 12-04-2022 Note ORIGINAL EXAMINATION: LIMITED ABDOMINAL ULTRASOUND12/04/2022 8:23 am TECHNIQUE: Ultrasound images were obtained of the pancreas, IVC, aorta, liver, gallbladder, and right kidney. COMPARISON: None HISTORY: ORDERING SYSTEM PROVIDED HISTORY: Reason for Exam: RUQ pain after greasy foodswith nausea and vomiting for 6 months FINDINGS: LIVER: The liver measures 17.4 cm. Normal contour and echotexture. No hepatic mass is identified. ASCITES: None. GALLBLADDER/BILARY: Positive sonographic Ruiz's sign. The gallbladder is adequately distended and demonstrates no wall thickening. There are layering stones identified within the gallbladder with posterior acoustic shadowing. No intrahepatic biliary ductal dilatation. The common duct measures 4.3 mm. PANCREAS: The visualized portions of the pancreas are normal in size and echogenicity. RIGHT KIDNEY: The right kidney shows no pelvocaliectasis. There is a 1.6 x 1.9 x 1.8 hyperechoic lesion within the right renal cortex which likely represents an angiomyolipoma. VASCULATURE: The visualized aorta and IVC are not dilated. IMPRESSION: Cholelithiasis and a positive sonographic Ruiz's sign, suggestive of cholecystitis. Right renal angiomyolipoma. I have personally reviewed the images of this examination and agree with the resident's findings and interpretations. Interpreted by: Delfino Wolf MD Preliminary Report By: Craig Rodriguez Electronically signed By Delfino Wolf MD Dictated Date: 12/04/2022 2:41:18 PM Prelim Date: 12/04/2022 3:23:41 PM Sign Date: 12/04/2022 3:23:41 PM Ordering Provider: SINTIA MARION [facility] 12-04-2022 Evaluation + Plan note Future Scheduled TestsThyroid Stimulating Hormone 12/28/22US Renal 12/04/22 [facility] 12-04-2022 Evaluation + Plan note Future Appointments Future Scheduled TestsThyroid Stimulating Hormone 12/28/22US Renal 12/04/22 [facility] 12-04-2022 Note ORIGINAL EXAMINATION: LIMITED ABDOMINAL ULTRASOUND12/04/2022 8:23 am TECHNIQUE: Ultrasound images were obtained of the pancreas, IVC, aorta, liver, gallbladder, and right kidney. COMPARISON: None HISTORY: ORDERING SYSTEM PROVIDED HISTORY: Reason for Exam: RUQ pain after greasy foodswith nausea and vomiting for 6 months FINDINGS: LIVER: The liver measures 17.4 cm. Normal contour and echotexture. No hepatic mass is identified. ASCITES: None. GALLBLADDER/BILARY: Positive sonographic Ruiz's sign. The gallbladder is adequately distended and demonstrates no wall thickening. There are layering stones identified within the gallbladder with posterior acoustic shadowing. No intrahepatic biliary ductal dilatation. The common duct measures 4.3 mm. PANCREAS: The visualized portions of the pancreas are normal in size and echogenicity. RIGHT KIDNEY: The right kidney shows no pelvocaliectasis. There is a 1.6 x 1.9 x 1.8 hyperechoic lesion within the right renal cortex which likely represents an angiomyolipoma. VASCULATURE: The visualized aorta and IVC are not dilated. IMPRESSION: Cholelithiasis and a positive sonographic Ruiz's sign, suggestive of cholecystitis. Right renal angiomyolipoma. I have personally reviewed the images of this examination and agree with the resident's findings and interpretations. Interpreted by: Delfino Wolf MD Preliminary Report By: Craig Rodriguez Electronically signed By Delfino Wolf MD Dictated Date: 12/04/2022 2:41:18 PM Prelim Date: 12/04/2022 3:23:41 PM Sign Date: 12/04/2022 3:23:41 PM Ordering Provider: SINTIA MARION [facility] 11-15-2022 Evaluation + Plan note Future Scheduled TestsUS Abdomen Limited 11/15/22 [facility] 07-31-2022 Evaluation + Plan note Future Scheduled TestsThyroid Stimulating Hormone 07/31/22Lipid Profile 07/31/22Complete Metabolic Panel 07/31/[address] [facility] Sharyn Young 02-27-2022 Note HNO ID: [id number] Author: Olivier Malik MD Service: ? Author Type: Physician Type: Progress Notes Filed: 02/27/2022 6:49 PM Note Text: Patient presents with: Rash: ARIEL legs x8 days HPI: Rash: Location: Both lower legs Duration: 8 days Pruritis: Yes Pain: Some from open areas Change: Swelling and redness is worsening Bleeding/ulceration/blister/pustul e: NO Contacts with rash: No Exposure: Outdoor exposure: Bitten by flies while weeding. Change in medications: No. Recent illness: No. Treatment: Rubbing alcohol, topical benadryl PAST MEDICAL HISTORY Diagnosis Date - Asthma - Asthma due to seasonal allergies - Back pain - DDD (degenerative disc disease), lumbar - Hypothyroidism MEDICATIONS: levothyroxine (SYNTHROID) 150 mcg tablet Take 150 mcg by mouth daily before breakfast. Name brand only albuterol sulfate (PROVENTIL INHALATION) Inhale 1 Inhalation as instructed as needed. ALLERGIES: ALLERGIES Allergen Reactions - Etodolac Hives - Penicillins Hives VITALS: BP 122/90 Pulse 82 Temp 36.7 ?C (98.1 ?F) Resp 20 Wt 122.5 kg (270 lb) SpO2 98% BMI 41.05 kg/m? PHYSICAL EXAM: GEN: pleasant, no acute distress, alert SKIN: 1-4mm flat dry red eschar lesions on bilateral lower legs, worse on posterior portions. Most lesions have 1 to 5cm of erythema/induration around them. ASSESSMENT/PLAN: 1. Contact dermatitis due to plant - ICD9: 692.6, ICD10: L25.5 (primary diagnosis) 2. Bilateral lower leg cellulitis - ICD9: 682.6, ICD10: L03.116, L03.115 Plant dermatitis or insect bites which have secondary infection. - CEPHALEXIN 500 MG CAPSULE and - PREDNISONE 10 MG TABLET taper Olivier Malik MD [facility] 02-27-2022 History of Present illness Narrative Patient presents with: Rash: ARIEL legs x8 days HPI: Rash: Location: Both lower legs Duration: 8 days Pruritis: Yes Pain: Some from open areas Change: Swelling and redness is worsening Bleeding/ulceration/blister/pustul e: NO Contacts with rash: No Exposure: Outdoor exposure: Bitten by flies while weeding. Change in medications: No. Recent illness: No. Treatment: Rubbing alcohol, topical benadryl PAST MEDICAL HISTORY Diagnosis Date Asthma Asthma due to seasonal allergies Back pain DDD (degenerative disc disease), lumbar Hypothyroidism MEDICATIONS: levothyroxine (SYNTHROID) 150 mcg tablet Take 150 mcg by mouth daily before breakfast. Name brand only albuterol sulfate (PROVENTIL INHALATION) Inhale 1 Inhalation as instructed as needed. ALLERGIES: ALLERGIES Allergen Reactions Etodolac Hives Penicillins Hives VITALS: BP 122/90 Pulse 82 Temp 36.7 C (98.1 F) Resp 20 Wt 122.5 kg (270 lb) SpO2 98% BMI 41.05 kg/m PHYSICAL EXAM: GEN: pleasant, no acute distress, alert SKIN: 1-4mm flat dry red eschar lesions on bilateral lower legs, worse on posterior portions. Most lesions have 1 to 5cm of erythema/induration around them. ASSESSMENT/PLAN: 1. Contact dermatitis due to plant - ICD9: 692.6, ICD10: L25.5 (primary diagnosis) 2. Bilateral lower leg cellulitis - ICD9: 682.6, ICD10: L03.116, L03.115 Plant dermatitis or insect bites which have secondary infection. - CEPHALEXIN 500 MG CAPSULE and - PREDNISONE 10 MG TABLET taper Olivier Malik MD documented in this encounter [facility] Evaluation + Plan note Future Appointments Appointment Date:05/25/2023 10:00:00 AM Scheduled Provider: Location:[facility] Appointment Type:US Renal Future Scheduled TestsThyroid Stimulating Hormone 12/28/22US Renal 05/25/23 [facility] Evaluation + Plan note Future Appointments Appointment Date:07/13/2023 03:00:00 PM Scheduled Provider:CORNELIO GAY DO Location:[facility] Appointment Type: Wellness Medicare Future Scheduled TestsThyroid Stimulating Hormone 12/28/22Thyroid Stimulating Hormone 06/24/23Free T4 06/24/23Free T3 06/24/23 [facility] Evaluation + Plan note Future Appointments Appointment Date:07/02/2024 01:30:00 PM Scheduled Provider:CORNELIO GAY DO Location[facility] Appointment Type:PC Wellness Annual Future Scheduled TestsThyroid Stimulating Hormone 05/20/24Fr T4 05/20/24Fr T3 05/20/24Lipid Profile 05/20/24Vitamin D Level 05/20/24Complete Metabolic Panel 05/20/24 [facility] Evaluation note Diagnosis Contact dermatitis due to plant- Primary Contact dermatitis and other eczema due to plants (except food) Bilateral lower leg cellulitis Cellulitis and abscess of leg, except foot documented in this encounter [facility] course Narrative No data available for this section [facility] Hospital Discharge instructions No data available for this section [facility] Progress note No data available for this section [facility] Summary Purpose Family History No Family History Records FoundNo Family History Records Found No data available for this section No Family History Records Found No data available for this section No Family History Records Found No data available for this section No data available for this section No data available for this section No Family History Records Found Advance Directives No Advanced Directives Records FoundDocuments on File Type Date Recorded 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 Reverberatory Expl anation Advance Directive(s) 06/27/2018 6:02 AM Advance Directive(s) 06/24/2018 11:28 AM Procedure Findings Note HNO ID: [id number]: Michael Denise (Alexander) Luis E-MarkyeService: Gynecology OncologyAuthor Type: FellowType: Brief Op NoteFiled: 06/27/2018 12:23 PMNote Text:BRIEF OPERATIVE / PROCEDURE NOTELOG ID: [id number]/PROCEDURE DATE: 06/27/2018INCISION/PROCEDURE START TIME: 8:15 AMINCISION CLOSE/PROCEDURE END TIME: 9:27 AMSURGEON(S)/PROCEDURALIST(S) AND CARBON PAPER COATING SUPERVISOR(S):Surgeon(s) and Role: * Gus Saucedo - Primary * Dacia Paris - Resident - Assisting * Elyse Carter (Fel) - Resident - AssistingNo Additional StaffSURGERY/PROCEDURE(S): total laparoscopic hysterectomy, bilateralsalpingooophorectomy, cystoscopyANESTHESIA: GeneralFINDINGS: normal appearing uterus and bilateral fallopian tubes, normalabdominal survey, cystoscopy with normal appearing bladder and strongbilateral ureteral jets. Frozen: FIGO grade 1 endometrial cancer, 24%myometrial invasionESTIMATED BLOOD LOSS: 20 mlsIVF 1100mLUOP 200mLSPECIMENS:Uterus, cervix, bilateral fallopian tubes and ovariesCOMPLICATIONS: NonePRE-OP/PRE- (more content not included)... Additional Source Comments INFORMATION SOURCE (unrecogn ized section and content) DATE CREATED AUTHOR 08/02/2018 [facility] DATE CREATED AUTHOR AUTHOR'S ORGANIZ ATION 02/28/2022 [facility] DATE CREATED AUTHOR AUTHOR'S ORGANIZ ATION 05/14/2023 [facility] DATE CREATED AUTHOR AUTHOR'S ORGANIZ ATION 10/09/2023 [email or web address] DATE CREATED AUTHOR AUTHOR'S ORGANIZ ATION 06/05/2025 [facility] Source Comments (unrecognize d section and content) In the event this informatio n is protected by the Federal Confidentiality of Alcohol and Drug Abuse Patient Records regulations: The Federal rules restrict any use of the information to criminally investigate or prosecute any alcohol or drug abuse patient.[facility] Reason for Visit (unrecogniz ed section and content) Reason Comments Rash ARIEL legs x8 days Care Teams (unrecognized sec tion and content) Yeast Stacker Relationship Specialty Start Date End Date Sintia Marion DO [address] [place] [address] PCP - General Family Practice 07/12/18 Sintia Marion DO Referring [facility] Practice 06/21/18 Ana Handley DO Primary Staff Physician Cardiology 12/10/18 Care Team (unrecognized sect ion and content) Care Team Personnel Name: Ike Metal Machine Setter Opal PT Position: P3 Scheduling - Salesperson Surgical Appliances Advanced Member Role: Other Name: SINTIA MARION DO Position: P4 Physician - Primary Care Member Role: Primary Care Physician Address: Address: [address] [place] [id number]- Care Team Related Persons Name: LARRY HOOD Address: Home [address] [place] [address] [place] Name: MEGAN NAYLOR Care Team Personnel Name: Mariana Ramires Clerk Opal PT Position: P3 Scheduling - Salesperson [employer]iances Advanced Member Role: Other Name: CORNELIO GAY DO Position: P4 Physician - Primary Care Member Role: Primary Care Physician Address: Address: [address] [place] [address]- Care Team Related Persons Name: LARRY HOOD Address: Home [address] [place] [phone] [place] Name: MEGAN NAYLOR Care Team Personnel Name: Mariana Ramires Clerk Opal PT Position: P3 Scheduling - Salesperson Surgical Appliances Advanced Member Role: Other Name: CORNELIO GAY DO Position: P4 Physician - Primary Care Member Role: Primary Care Physician Address: Address: [address] [place] [address] Care Team Related Persons Name: LARRY HOOD Address: Home [address] [place] [phone] [place] Name: MEGAN NAYLOR FOR RECORDS PERTAINING TO PATIENTS WHO ARE OR HAVE BEEN ENROLLED IN A CHEMICAL DEPENDENCY/SUBSTANCEABUSE PROGRAM, SOME INFORMATION MAY BE OMITTED. This clinical summary was aggregated from multiple sources. Caution should be exercised in using it in the provision of clinical care. This summary normalizes information from multiple sources, and as a consequence, information in this document may materially change the coding, format and clinical context of patient data. In addition, data may be omitted in some cases. CLINICAL DECISIONS SHOULD BE BASED ON THE PRIMARY CLINICAL RECORDS. [facility], [facility]. provides no warranty or guarantee of the accuracy or completeness of information in this document.
--- NOTE | 2025-09-10 07:49 | ART_ITS ---
Reason For Study Reason For Study: Left leg claudication Procedure A bilateral lower extremity continuous wave Doppler with analog waveform analysis and ankle brachial indexes. Left Segmental Pressures Left brachial= 153mmHg. Left posterior tibial artery = 158mmHg. Left dorsalis pedis artery = 146mmHg. Left digit = 111 mmHg. The left dorsalis pedis waveforms are triphasic. The left posterior tibial artery waveforms are triphasic. Right Segmental Pressures Right brachial= 156mmHg. Right posterior tibial artery = 155mmHg. Right dorsalis pedis artery = 145mmHg. Right digit = 134 mmHg. The right dorsalis pedis waveforms are triphasic. The right posterior tibial artery waveforms are triphasic. Indices The right ankle brachial index by the dorsalis pedis is 0.93. The right ankle brachial index by the posterior tibial artery is 0.99. The right digital-brachial index is 0.86. The left ankle brachial index by the dorsalis pedis is 0.94. The left ankle brachial index by the posterior tibial artery is 1.01. The left digital-brachial index is 0.71. VL/Ankle Brachial Index Interpretation Summary Right FREDIS 0.99, mild arterial insufficiency. Doppler/PVR waveforms of the right leg normal at rest. Left FREDIS 1.01, normal. Doppler/PVR waveforms of the left leg normal at rest. TB I diminished, pedal/digit disease vs spasm. Ordering Physician: Марина Roach Referring Physician: Марина Roach Performed By: [facility] CHAWLA [facility]
== END | disposition home or self-care (01) ==
LOC: CVS 07:44
PROVIDERS: PCP Family Medicine; Referring Provider Family Medicine; Visit Provider Family Medicine
DX: I73.9 Peripheral vascular disease, unspecified (principal)
CPT/HCPCS: 93922